=== PATIENT | female | born 1960 | race Caucasian/White ===

== ENCOUNTER 2016-04-26 14:31 | Emergency (ER) | payer MEDICAID ==
[2015-05-09 10:19] VITALS: BMI 38.4
[~2016-04-26 14:31] MED LIST: ACCUPRIL20 MG PO; CALCIUM 600+D T1 TA1 PO; CATAPRES TTS-20.2 MG TRANSDERM; COREG 3.1253.125 MG PO; DESERYL100 MG PO; FISH OIL 1,0001 CA1 PO; KLONOPIN1 MG PO; LAMICTAL200 MG PO; MAG-OXIDE400 MG PO; MULTI-DAY VITAM1 TAB PO; NORCO 7.5/325 T1 TA1 PO; NORVASC5 MG PO; TOPROL XL25 MG PO; ZOCOR40 MG PO; ZOLOFT100 MG PO
[2016-04-26 16:52] LABS: BASOPHILS 0.3 % (0.0-2.0); EOSINOPHILS 2.8 % (0-7); HEMATOCRIT 36.5 % (36.0-48.0); HEMOGLOBIN 11.9 g/dL (12-16); IMMATURE GRANULOCYTES 0.2 % (0-5); LYMPHOCYTES 37.3 % (15-50); MCH 30.4 pg (26.0-34.0); MCHC 32.6 g/dL (31.0-37.0); MCV 93.4 fL (80.0-100.0); MEAN PLATELET VOLUME 10.1 fL (7.4-10.4); NEUTROPHILS 51.4 % (40-80); RBC 3.91 10x6/uL (4.00-5.40); WBC 6.4 10x3/uL (4.8-10.8)
[2016-04-26 16:54] LABS: PLATELET COUNT 350 10x3/uL (130-400)
[2016-04-26 16:59] LABS: APPEARANCE CLOUDY (CLEAR); BILIRUBIN NEGATIVE (NEGATIVE); COLOR YELLOW (YELLOW); GLUCOSE NEGATIVE (NEGATIVE); KETONE NEGATIVE (NEGATIVE); LEUKOCYTE ESTERASE TRACE (NEGATIVE); NITRITE NEGATIVE (NEGATIVE); PROTEIN NEGATIVE (NEGATIVE); SPECIFIC GRAVITY 1.005 (1.005-1.020); UROBILINOGEN NORMAL (NORMAL)
[2016-04-26 17:00] LABS: AMORPHOUS SEDIMENT <1+ /lpf (NONE SEEN); BACTERIA FEW /hpf (NONE SEEN); EPITHELIAL CELLS 0-5 /hpf (0-5); RED CELLS - URINE 0-5 /hpf (0-5); WHITE CELLS - URINE 0-5 /hpf (0-5)
[2016-04-26 17:06] LABS: ALBUMIN 3.9 g/dL (3.4-5.0); ALKALINE PHOSPHATASE 84 U/L (46-116); ALT (SGPT) 20 U/L (10-68); BILIRUBIN - TOTAL 0.26 mg/dL (0.2-1.3); CALC OSMOLALITY 273 mosm/kg (275-300); CALCIUM 9.8 mg/dL (8.5-10.1); CARBON DIOXIDE 31.2 mmol/L (21.0-32.0); CHLORIDE - SERUM 99 mmol/L (98-107); GLUCOSE 104 mg/dL (74-106); POTASSIUM - SERUM 4.6 mmol/L (3.5-5.1); PROTEIN - SERUM 7.5 g/dL (6.4-8.2); SODIUM 137 mmol/L (136-145); UREA NITROGEN 13 mg/dL (7-18); eGFR NON AFRICAN AMERICAN 61 mL/min (90-120)
[2016-04-26 17:09] LABS: AMYLASE - SERUM 42 U/L (25-115); LIPASE 174 U/L (73-393); TROPONIN-I < 0.017 ng/mL (0.000-0.060)
== END 2016-04-26 18:06 | disposition home or self-care (01) ==
LOC: D.ER 14:31
PROVIDERS: Physician Assistant
DX: R10.11 Right upper quadrant pain (principal); R07.9 Chest pain, unspecified; I10 Essential (primary) hypertension

== ENCOUNTER 2016-05-15 22:36 | Emergency (ER) | payer MEDICAID ==
[2015-05-09 10:19] VITALS: BMI 38.4
== END 2016-05-16 01:45 | disposition home or self-care (01) ==
LOC: D.ER 22:36
DX: R10.11 Right upper quadrant pain (principal); Z87.19 Personal history of other diseases of the digestive system; I10 Essential (primary) hypertension

== ENCOUNTER → 2016-05-28 07:47 | Outpatient (CLI) | payer MEDICAID ==
[2015-05-09 10:19] VITALS: BMI 38.4
[~2016-05-28 07:47] MED LIST changes: +ATARAX 25 MG TA25 MG PO; +CARAFATE1 G/10 ML PO; +GEODON20 MG PO; +HYDROCHLOROTHIA25 MG PO; +HYDROCODON-ACE1 EAC7 PO; +LEXAPRO10 MG PO; +LOVASTATIN40 MG PO; +PROTONIX40 MG PO
== END | disposition home or self-care (01) ==
LOC: D.NM 07:47
DX: R10.11 Right upper quadrant pain (principal); R11.0 Nausea

== ENCOUNTER → 2016-06-04 07:24 | Outpatient (CLI) | payer MEDICAID ==
[2015-05-09 10:19] VITALS: BMI 38.4
== END | disposition home or self-care (01) ==
LOC: D.NM 07:24
DX: R11.0 Nausea (principal); R10.11 Right upper quadrant pain

== ENCOUNTER 2016-06-08 21:53 | Emergency (ER) | payer MEDICAID ==
[2015-05-09 10:19] VITALS: BMI 38.4
[~2016-06-08 21:53] MED LIST changes: -ATARAX 25 MG TA25 MG PO; -CARAFATE1 G/10 ML PO; -GEODON20 MG PO; -HYDROCHLOROTHIA25 MG PO; -HYDROCODON-ACE1 EAC7 PO; -LEXAPRO10 MG PO; -LOVASTATIN40 MG PO; -PROTONIX40 MG PO
[2016-06-08 22:58] LABS: BASOPHILS 0.6 % (0.0-2.0); EOSINOPHILS 3.7 % (0-7); HEMATOCRIT 37.5 % (36.0-48.0); HEMOGLOBIN 12.4 g/dL (12-16); IMMATURE GRANULOCYTES 0.1 % (0-5); LYMPHOCYTES 47.8 % (15-50); MCH 30.2 pg (26.0-34.0); MCHC 33.1 g/dL (31.0-37.0); MCV 91.2 fL (80.0-100.0); MEAN PLATELET VOLUME 9.9 fL (7.4-10.4); NEUTROPHILS 41.8 % (40-80); PLATELET COUNT 359 10x3/uL (130-400); RBC 4.11 10x6/uL (4.00-5.40); RDW 12.7 % (11.5-14.5); WBC 10.5 10x3/uL (4.8-10.8)
[2016-06-08 23:13] LABS: ALBUMIN 4.2 g/dL (3.4-5.0); BILIRUBIN - TOTAL 0.19 mg/dL (0.2-1.3); CALCIUM 9.5 mg/dL (8.5-10.1); CARBON DIOXIDE 24.7 mmol/L (21.0-32.0); POTASSIUM - SERUM 3.7 mmol/L (3.5-5.1); PROTEIN - SERUM 8.2 g/dL (6.4-8.2)
[2016-06-08 23:27] LABS: APPEARANCE HAZY (CLEAR); BILIRUBIN NEGATIVE (NEGATIVE); COLOR YELLOW (YELLOW); GLUCOSE NEGATIVE (NEGATIVE); KETONE NEGATIVE (NEGATIVE); LEUKOCYTE ESTERASE TRACE (NEGATIVE); NITRITE NEGATIVE (NEGATIVE); PROTEIN NEGATIVE (NEGATIVE); RED CELLS - URINE NONE SEEN /hpf (0-5); SPECIFIC GRAVITY 1.015 (1.005-1.020); UROBILINOGEN NORMAL (NORMAL); WHITE CELLS - URINE 0-5 /hpf (0-5)
[2016-06-08 23:28] LABS: BACTERIA NONE SEEN /hpf (NONE SEEN); EPITHELIAL CELLS 0-5 /hpf (0-5)
== END 2016-06-09 01:48 | disposition home or self-care (01) ==
LOC: D.ER 21:53
PROVIDERS: Nurse Practitioner Acute Care; Surgery
DX: R10.9 Unspecified abdominal pain (principal); I10 Essential (primary) hypertension

== ENCOUNTER 2016-06-26 17:51 | Inpatient (IN) | payer MEDICAID ==
[~2016-06-26] VITALS: Ht 162.6 cm; Wt 100.5 kg
[2016-06-26 19:35] LABS: ALBUMIN 2.7 g/dL (3.4-5.0); BILIRUBIN - TOTAL 0.14 mg/dL (0.2-1.3); POTASSIUM - SERUM 4.2 mmol/L (3.5-5.1); UREA NITROGEN 40 mg/dL (7-18)
[2016-06-26 19:38] LABS: ALKALINE PHOSPHATASE 41 U/L (46-116); ALT (SGPT) 20 U/L (10-68); AMYLASE - SERUM 51 U/L (25-115); CALC OSMOLALITY 292 mosm/kg (275-300); CALCIUM 8.3 mg/dL (8.5-10.1); CARBON DIOXIDE 25.8 mmol/L (21.0-32.0); CHLORIDE - SERUM 107 mmol/L (98-107); CREATININE - SERUM 0.8 mg/dL (0.6-1.3); GLUCOSE 131 mg/dL (74-106); LIPASE 196 U/L (73-393); PROTEIN - SERUM 5.3 g/dL (6.4-8.2); SODIUM 141 mmol/L (136-145); eGFR NON AFRICAN AMERICAN 79 mL/min (90-120)
[2016-06-26 19:45] LABS: BASOPHILS 0.3 % (0.0-2.0); EOSINOPHILS 2.2 % (0-7); IMMATURE GRANULOCYTES 0.4 % (0-5); MCH 30.5 pg (26.0-34.0); MCHC 33.1 g/dL (31.0-37.0); MCV 92.1 fL (80.0-100.0); MEAN PLATELET VOLUME 9.7 fL (7.4-10.4); MONOCYTES 4.8 % (2-11); NEUTROPHILS 61.3 % (40-80); RDW 13.6 % (11.5-14.5); WBC 10.7 10x3/uL (4.8-10.8)
[2016-06-26 20:02] LABS: HEMATOCRIT 15.1 % (36.0-48.0); PLATELET COUNT 249 10x3/uL (130-400); RBC 1.64 10x6/uL (4.00-5.40)
[2016-06-26 20:39] LABS: APTT 24.5 SECONDS (22.8-39.4); INR 1.04 (0.85-1.17); PROTIME 13.5 SECONDS (11.6-15.0)
[2016-06-26 20:44] LABS: APPEARANCE CLEAR (CLEAR); COLOR YELLOW (YELLOW)
[2016-06-26 20:45] LABS: BILIRUBIN NEGATIVE (NEGATIVE); GLUCOSE NEGATIVE (NEGATIVE); KETONE NEGATIVE (NEGATIVE); LEUKOCYTE ESTERASE TRACE (NEGATIVE); NITRITE NEGATIVE (NEGATIVE); PROTEIN NEGATIVE (NEGATIVE); RED CELLS - URINE OCC /hpf (0-5); UROBILINOGEN NORMAL (NORMAL); WHITE CELLS - URINE 0-5 /hpf (0-5)
[2016-06-26 20:46] LABS: BACTERIA FEW /hpf (NONE SEEN)
[2016-06-26 21:00] VITALS: BP 101/73
--- NOTE | 2016-06-26 21:00 | NUR ---
PT ARRIVED TO ICU. AAO. BP 116/96. HR 125. O2 94% ON ROOM AIR. RR 16. TEMP 98.6. ANSWERS APPROPRIATELY.
[2016-06-26 21:17] VITALS: BP 116/96; BMI 38.5
--- NOTE | 2016-06-26 21:30 | NUR ---
1ST UNIT OF PRBC STARTED. VSS.
[2016-06-26] MEDS ORDERED: HYDROCODON-ACE1 EAC7 PO (21:36)
[2016-06-26] MEDS ORDERED: HYDROCHLOROTHIA25 MG PO (21:41)
[2016-06-26] MEDS ORDERED: LOVASTATIN40 MG PO (21:42)
[2016-06-26] MEDS ORDERED: LEXAPRO10 MG PO (21:42)
[2016-06-26] MEDS ORDERED: GEODON20 MG PO (21:42)
[2016-06-26] MEDS ORDERED: ATARAX 25 MG TA25 MG PO (21:44)
--- NOTE | 2016-06-26 21:55 | NUR ---
PT HEADED TO CT.
[2016-06-26 22:00] VITALS: BP 111/83
--- NOTE | 2016-06-26 22:05 | NUR ---
PT ARRIVED BACK FROM CT. VSS
--- NOTE | 2016-06-26 22:15 | NUR ---
22 GAUGE PIV STARTED TO RIGHT AC.
[2016-06-26 23:00] VITALS: BP 117/94
--- NOTE | 2016-06-26 23:30 | NUR ---
REASSESSMENT COMPLETE. NO CHANGES FROM PREVIOUS ASSESSMENT. WILL CONTINUE TO MONITOR.
--- NOTE | 2016-06-26 23:49 | NUR ---
PRBC CONTINUES TO INFUSE. VSS. NO SIGNS OF REACTION. WILL CONTINUE TO MONITOR.
[2016-06-27] VITALS (24 sets, daily range): BP systolic 120–196; BP diastolic 63–106; Ht 162.6 cm; Wt 100.5 kg
--- NOTE | 2016-06-27 00:45 | NUR ---
1ST PRBC COMPLETE. 2ND PRBC STARTED. VSS. WILL CONTINUE TO MONITOR.
--- NOTE | 2016-06-27 01:40 | NUR ---
2ND PRBC CONTINUES INFUSING. VSS. NO SIGNS OF REACTION NOTED. PT C/O INSOMNIA. WILL CONTINUE TO MONITOR.
--- NOTE | 2016-06-27 03:30 | NUR ---
REASSESSMENT COMPLETE. NO CHANGES FROM PREVIOUS ASSESSMENT OTHER THAN INCREASE IN RR; TACHYPNEA.
--- NOTE | 2016-06-27 06:05 | NUR ---
SPOKE WITH DR. SALINAS. UPDATE ON PT GIVEN.
[2016-06-27 07:21] LABS: BASOPHILS 0.3 % (0.0-2.0); EOSINOPHILS 1.1 % (0-7); HEMATOCRIT 20.3 % (36.0-48.0); IMMATURE GRANULOCYTES 0.3 % (0-5); LYMPHOCYTES 31.7 % (15-50); MCH 30.3 pg (26.0-34.0); MEAN PLATELET VOLUME 9.8 fL (7.4-10.4); MONOCYTES 6.2 % (2-11); NEUTROPHILS 60.4 % (40-80); RDW 13.6 % (11.5-14.5); WBC 10.6 10x3/uL (4.8-10.8)
[2016-06-27 07:26] LABS: RBC 2.28 10x6/uL (4.00-5.40)
[2016-06-27 07:28] LABS: HEMOGLOBIN 6.9 g/dL (12-16); PLATELET COUNT 142 10x3/uL (130-400)
[2016-06-27 07:53] LABS: ALBUMIN 2.3 g/dL (3.4-5.0); ALKALINE PHOSPHATASE 31 U/L (46-116); ALT (SGPT) 15 U/L (10-68); AMYLASE - SERUM 41 U/L (25-115); BILIRUBIN - TOTAL 0.88 mg/dL (0.2-1.3); CALC OSMOLALITY 294 mosm/kg (275-300); CARBON DIOXIDE 24.1 mmol/L (21.0-32.0); CHLORIDE - SERUM 111 mmol/L (98-107); CKMB 0.3 U/L (0.0-3.6); CREATININE - SERUM 0.9 mg/dL (0.6-1.3); FERRITIN 35 ng/mL (3-244); GLUCOSE 124 mg/dL (74-106); LIPASE 185 U/L (73-393); MAGNESIUM - SERUM 1.5 mg/dL (1.8-2.4); POTASSIUM - SERUM 4.1 mmol/L (3.5-5.1); PRO BNP 73 pg/mL (0-125); PROTEIN - SERUM 4.4 g/dL (6.4-8.2); SODIUM 142 mmol/L (136-145); THYROID STIMULATING HORMONE 2.14 uIU/mL (0.36-3.74); TROPONIN-I < 0.017 ng/mL (0.000-0.060); UREA NITROGEN 43 mg/dL (7-18); eGFR NON AFRICAN AMERICAN 69 mL/min (90-120)
[2016-06-27 07:57] LABS: % SATURATION 96 % (15-55); IRON 262 ug/dl (35-150); TOTAL IRON BIND CAPACITY 272 ug/dl (260-445)
[2016-06-27 07:58] LABS: UNSAT IRON BIND CAPACITY 10 ug/dl (150-375)
--- NOTE | 2016-06-27 08:50 | NUR ---
Is the patient Alert and Oriented? Yes 0 * How many steps to enter\exit or inside your home? 5-6 0 * PCP DR WU IN [place] 0 * Pharmacy [facility] 0 * Preadmission Environment Home with Family 0 * ADLs Independent 0 * Equipment None 0 * List name and contact numbers for known caregivers / representatives who currently or will assist patient after discharge: S/O ALEJANDRO SQUIRES [phone] * Community resources currently utilized None 0 * Additional services required to return to the preadmission environment? No 0 * Can the patient safely return to the preadmission environment? Yes 0 * Has this patient been hospitalized within the prior 30 days at any hospital? No PATIENT STATES SHE LIVES AT HOME WITH HER S/O ALEJANDRO SQUIRES. SHE WAS INDEPENDENT WITH ALL ADL'S PRIOR TO YESTERDAY. PATIENT STATES ALEJANDRO WILL BE AVAILABLE TO DRIVE HER HOME AT DISCHARGE. PATIENT'S PCP IS DR. WU IN [place]. SHE GETS HER MEDS FROM [facility]. SHE DENIES USE OF ANY EQUIPMENT AND DENIES EVER HAVING HOME HEALTH IN THE PAST. PATIENT STATES THERE ARE 5-6 STEPS TO ENTER HER HOME. NO DISCHARGE NEEDS IDENTIFIED AT THIS TIME.
[2016-06-27 11:13] LABS: APPEARANCE CLEAR (CLEAR); BILIRUBIN NEGATIVE (NEGATIVE); COLOR YELLOW (YELLOW); GLUCOSE NEGATIVE (NEGATIVE); KETONE NEGATIVE (NEGATIVE); LEUKOCYTE ESTERASE NEGATIVE (NEGATIVE); NITRITE NEGATIVE (NEGATIVE); PROTEIN NEGATIVE (NEGATIVE); SPECIFIC GRAVITY 1.015 (1.005-1.020); UROBILINOGEN NORMAL (NORMAL)
[2016-06-27 11:14] LABS: BACTERIA FEW /hpf (NONE SEEN); EPITHELIAL CELLS 0-5 /hpf (0-5); RED CELLS - URINE 0-5 /hpf (0-5); WHITE CELLS - URINE 0-5 /hpf (0-5)
--- NOTE | 2016-06-27 18:54 | NUR ---
0700 PT HAD TARRY BM AND WAS CLEANED WITH FULL LINEN CHANGE COMPLETE. PT COMPLAINING OF DISCOMFORT AND UNABLE TO LOCALIZE WHERE.
--- NOTE | 2016-06-27 18:56 | NUR ---
0900 BLOOD INFUSING AND PT BP INCREASING. DR JONES NOTIFIED AND HE STATED THAT WE WILL WAIT TO MONITOR AND IF NO IMPROVEMENTS WE WILL GIVE LASIX BETWEEN BLOOD.
--- NOTE | 2016-06-27 18:57 | NUR ---
1100 DR SALINAS AND ANESTHESIA HERE TO PERFORM EGD. CONSENT SIGNED AND IN CHART. PT TOLERATED PROCEDURE WELL. BLOOD INFUSING. WILL CONTINUE TO MONITOR
--- NOTE | 2016-06-27 18:59 | NUR ---
1300 PT COMPLAINS OF SEVERE THIRST. CALLED DR JONES AND CLEAR LIQUID DIET ORDERED. PT GIVEN WATER AND STATES SHE FEELS BETTER. PT FREQUENTLY PASSING GAS AT THIS TIME. BP INCREASING AT THIS TIME. LASIX ORDERED AND GIVEN BETWEEN BLOOD.
--- NOTE | 2016-06-27 19:01 | NUR ---
1500 HYDRALIZINE ORDERED FOR INCREASED BP. BP REMAINS ELEVATED BUT IMPROVED WITH MEDS
--- NOTE | 2016-06-27 19:02 | NUR ---
1700 JOHNSON INSERTED PER ORDER. URINE CLEAR YELLOW AND DRAINING TO GRAVITY, SECURED TO LEG. PT STATES THAT SHE IS FEELING BETTER. WILL MONITOR BP CLOSELY
[2016-06-27 19:07] LABS: HEMATOCRIT 29.2 % (36.0-48.0); HEMOGLOBIN 10.3 g/dL (12-16)
--- NOTE | 2016-06-27 19:30 | NUR ---
ASSESSMENT COMPLETE. S1S2. RR CLEAR TO ASCULTATION; SHALLOW. PERRLA. AAO. BLOODY STOOLS. SEE FLOW SHEET FOR DETAILS.
--- NOTE | 2016-06-27 21:20 | NUR ---
FAMILY AT BEDSIDE. UPDATE GIVEN.
--- NOTE | 2016-06-27 23:30 | NUR ---
REASSESSMENT COMPLETE. NO CHANGES FROM PREVIOUS ASSESSMENT. CALL LIGHT IN REACH. VSS. SEE FLOW SHEET FOR DETAILS.
--- NOTE | 2016-06-27 23:40 | NUR ---
PT HAVING MULTIPLE BLOODY STOOLS REQUIRING FREQUENT LINEN CHANGES AND CLEANING.
[2016-06-28] VITALS (24 sets, daily range): BP systolic 103–157; BP diastolic 57–97
[2016-06-28 00:53] LABS: HEMATOCRIT 27.5 % (36.0-48.0); HEMOGLOBIN 9.7 g/dL (12-16)
--- NOTE | 2016-06-28 01:10 | NUR ---
COMPLETE LINEN CHANGE.
--- NOTE | 2016-06-28 02:40 | NUR ---
REASSESSMENT COMPLETE. NO CHANGES FROM PREVIOUS ASSESSMENT; OTHER THAN PT C/O MILD HEADACHE 2/10 ON PAIN SCALE. WILL CONTINUE TO MONITOR.
[2016-06-28 04:14] LABS: BASOPHILS 0.2 % (0.0-2.0); EOSINOPHILS 1.4 % (0-7); HEMATOCRIT 28.3 % (36.0-48.0); HEMOGLOBIN 9.9 g/dL (12-16); IMMATURE GRANULOCYTES 0.4 % (0-5); LYMPHOCYTES 22.5 % (15-50); MCH 29.8 pg (26.0-34.0); MEAN PLATELET VOLUME 9.5 fL (7.4-10.4); MONOCYTES 8.2 % (2-11); NEUTROPHILS 67.3 % (40-80); PLATELET COUNT 152 10x3/uL (130-400); RDW 15.7 % (11.5-14.5); WBC 11.1 10x3/uL (4.8-10.8)
[2016-06-28 04:20] LABS: MCV 85.2 fL (80.0-100.0); RBC 3.32 10x6/uL (4.00-5.40)
[2016-06-28 04:36] LABS: CALCIUM 8.2 mg/dL (8.5-10.1); CARBON DIOXIDE 24.8 mmol/L (21.0-32.0); CHLORIDE - SERUM 107 mmol/L (98-107); CREATININE - SERUM 0.8 mg/dL (0.6-1.3); GLUCOSE 116 mg/dL (74-106); SODIUM 142 mmol/L (136-145); eGFR NON AFRICAN AMERICAN 79 mL/min (90-120)
[2016-06-28 04:38] LABS: CALC OSMOLALITY 285 mosm/kg (275-300); MAGNESIUM - SERUM 1.9 mg/dL (1.8-2.4); PHOSPHOROUS 4.9 mg/dL (2.5-4.9); POTASSIUM - SERUM 3.2 mmol/L (3.5-5.1); UREA NITROGEN 19 mg/dL (7-18)
--- NOTE | 2016-06-28 05:13 | NUR ---
COMPLETE BED BATH; COMPLETE LINEN CHANGE. VSS. CALL LIGHT IN REACH. WILL CONTINUE TO MONITOR.
--- NOTE | 2016-06-28 05:50 | NUR ---
COMPLETE LINEN CHANGE.
--- NOTE | 2016-06-28 09:50 | NUR ---
PT INC OF BOWEL, LINENS CHANGED X 2 THIS AM. NO BLOODY STOOLS NOTED.
--- NOTE | 2016-06-28 13:00 | NUR ---
1245- COLONOSCOPY DONE HERE I ICU, PT BRANDAN WELL, VSS, AFEBRILE. PT AWAKENING AND FOLLOWS COMMAND. VOICE SPOKE TO FAMILY.
[2016-06-28 13:40] LABS: HEMATOCRIT 26.5 % (36.0-48.0)
[2016-06-28 18:44] LABS: HEMOGLOBIN 8.3 g/dL (12-16)
--- NOTE | 2016-06-28 19:30 | NUR ---
ASSESSMENT COMPLETE. AAO. S1S2. RR CLEAR PER ASCULTATION THROUGHOUT ALL LOBES. R/L FOREARM PIV; BOTH PATENT. JOHNSON AND SCD'S IN PLACE. PT MAKES CHANGES IN POSITION INDEPENDENTLY. CALL LIGHT IN REACH. VSS. WILL CONTINUET TO MONITOR.
--- NOTE | 2016-06-28 21:15 | NUR ---
LEFT FOREARM PIV INFLITRATED.
--- NOTE | 2016-06-28 21:30 | NUR ---
UNIT OF PRBC STARTED. PER ORDERS.
--- NOTE | 2016-06-28 23:00 | NUR ---
REASSESSMENT COMPLETE. NO CHANGES FROM PREVIOUS ASSESSMENT. VSS. BLOOD CONTINUES TO INFUSE; NO SIGNS OF REACTION. AFEBRILE. WILL CONTINUE TO MONITOR.
[2016-06-29] VITALS (24 sets, daily range): BP systolic 91–143; BP diastolic 56–116
--- NOTE | 2016-06-29 01:20 | NUR ---
PT RESTING; EYES CLOSED. VSS. NO DISTRESS NOTED. CALL LIGHT IN REACH. WILL CONTINUE TO MONITOR.
--- NOTE | 2016-06-29 03:15 | NUR ---
REASSESSMENT COMPLETE. NO CHANGES FROM PREVIOUS ASSESSMENT. WILL CONTINUE TO MONITOR.
[2016-06-29 04:51] LABS: BASOPHILS 0.1 % (0.0-2.0); HEMATOCRIT 27.1 % (36.0-48.0); HEMOGLOBIN 9.2 g/dL (12-16); IMMATURE GRANULOCYTES 0.3 % (0-5); LYMPHOCYTES 33.8 % (15-50); MCHC 33.9 g/dL (31.0-37.0); MEAN PLATELET VOLUME 9.8 fL (7.4-10.4); MONOCYTES 6.1 % (2-11); NEUTROPHILS 55.7 % (40-80); RBC 3.07 10x6/uL (4.00-5.40); RDW 16.2 % (11.5-14.5)
[2016-06-29 04:53] LABS: MCV 88.3 fL (80.0-100.0); PLATELET COUNT 185 10x3/uL (130-400); WBC 7.3 10x3/uL (4.8-10.8)
[2016-06-29 05:07] LABS: CALC OSMOLALITY 286 mosm/kg (275-300); CALCIUM 8.3 mg/dL (8.5-10.1); CHLORIDE - SERUM 111 mmol/L (98-107); CREATININE - SERUM 0.7 mg/dL (0.6-1.3); GLUCOSE 99 mg/dL (74-106); MAGNESIUM - SERUM 1.8 mg/dL (1.8-2.4); PHOSPHOROUS 3.9 mg/dL (2.5-4.9); POTASSIUM - SERUM 3.3 mmol/L (3.5-5.1); SODIUM 145 mmol/L (136-145); eGFR NON AFRICAN AMERICAN > 90 mL/min (90-120)
[2016-06-29 05:09] LABS: UREA NITROGEN 7 mg/dL (7-18)
--- NOTE | 2016-06-29 07:31 | NUR ---
DR GROSS HERE, LABS REVIEWED AND REPORT GIVEN. DR GROSS ORDERS TO NOT GIVE PRBC'S BASED ON PARAMETERS THIS AM AND TO CONTINUE Q6H H&H AND CALL RESULTS AT NOON.
--- NOTE | 2016-06-29 09:38 | NUR ---
Nutrition follow-up: Diet advanced to clear liquids; pt tolerating at this time Labs reviewed Wt: 232# Will need nutrition support to start if diet unable to advance past clear liquids within [address] RDN following.
[2016-06-29 12:47] LABS: HEMATOCRIT 29.1 % (36.0-48.0); HEMOGLOBIN 9.6 g/dL (12-16)
--- NOTE | 2016-06-29 14:30 | NUR ---
LABS CALLED TO DR GROSS OFFICE, CALLED TO DR JONES WELL.
[2016-06-29 18:26] LABS: HEMOGLOBIN 8.3 g/dL (12-16)
--- NOTE | 2016-06-29 19:09 | NUR ---
LABS REVIEWED AND CALLED TO DR ZAZUETA. REC'D ORDERS.
[2016-06-29 19:30] LABS: BILIRUBIN - DIRECT 0.15 mg/dL (0.00-0.30); BILIRUBIN - TOTAL 0.34 mg/dL (0.2-1.3)
--- NOTE | 2016-06-29 23:15 | NUR ---
1914- REPORT RECVD. CARE ASSUMED. INITIAL ASSMNT COMPLETED. SEE FLOWSHEET FOR ALL FINDINGS. AWAKE AND AOX4. RESP EVEN AND UNLABORED. LUNGS CTA, SPO2 97% ON RA. DENIES DISCOMFORT. AFEBRILE. SR ON THE MONITOR. ABD SOFT, BSA X4. F/C PATENT WITH MAMI UOP. SCDS ON. HOB UP. C/L IN REACH. CONT CURRENT POC. 2014- DR ZAZUETA AT BEDSIDE TO DISCUSS EGD IN AM. ORDER TO OBTAIN CONSENT. 2100- HS MEDS GIVEN. PRBC INITIATED PER ORDERS. VSS. NO ADV REACTION SEEN. RESTING WITH NO DISTRESS. CONT POC. 2314- REASSESSMENT COMPLETED. SEE FLOWSHEET FOR ALL FINDINGS. NO SIG CHANGES SEEN. AFEBRILE. VSS. PRBC CONT TO INFUSE WITHOUT ISSUE. SR ON THE MONIOTR. DENIES DISCOMFORT. HS SNACK PROVIDED. UDERSTANDS NPO AFTER MN. HOB UP. C/L IN REACH. CONT CURRENT POC.
[2016-06-30] VITALS (23 sets, daily range): BP systolic 93–147; BP diastolic 50–109
--- NOTE | 2016-06-30 | NUR ---
PRBC INFUSED. NO ADV REACTION SEEN. VSS.
[2016-06-30 00:32] LABS: HEMATOCRIT 32.8 % (36.0-48.0); HEMOGLOBIN 10.7 g/dL (12-16)
--- NOTE | 2016-06-30 01:08 | NUR ---
CURRENT H AND H WITHIN PARAMETERS. VSS. DENIES NEEDS. RESTING WITH NO DISTRESS. HOB UP. C/L IN REACH. CONT CURRENT POC.
--- NOTE | 2016-06-30 03:15 | NUR ---
REASSESSMENT COMPLETED. SEE FLOWSHEET FOR ALL FINDINGS. NO SIG CHANGES SEEN. AFEBRILE. VSS. AFEBRILE. SR ON THE MONIOTR. DENIES DISCOMFORT. NPO. RESTING WITH NO DISTRESS. HOB UP. C/L IN REACH. CONT CURRENT POC.
--- NOTE | 2016-06-30 05:27 | NUR ---
RESTING WITH NO DISTRESS. VSS. NO NEEDS VOICED. HOB UP. C/L IN REACH. CONT CURRENT POC.
[2016-06-30 05:48] LABS: BASOPHILS 0.3 % (0.0-2.0); EOSINOPHILS 6.9 % (0-7); HEMATOCRIT 29.2 % (36.0-48.0); HEMOGLOBIN 9.6 g/dL (12-16); IMMATURE GRANULOCYTES 0.3 % (0-5); LYMPHOCYTES 34.4 % (15-50); MCH 29.2 pg (26.0-34.0); MCHC 32.9 g/dL (31.0-37.0); MCV 88.8 fL (80.0-100.0); MEAN PLATELET VOLUME 9.2 fL (7.4-10.4); MONOCYTES 7.2 % (2-11); NEUTROPHILS 50.9 % (40-80); PLATELET COUNT 218 10x3/uL (130-400); RBC 3.29 10x6/uL (4.00-5.40); WBC 7.1 10x3/uL (4.8-10.8)
[2016-06-30 06:06] LABS: ALBUMIN 2.4 g/dL (3.4-5.0); ALKALINE PHOSPHATASE 42 U/L (46-116); ALT (SGPT) 18 U/L (10-68); BILIRUBIN - TOTAL 0.41 mg/dL (0.2-1.3); CALC OSMOLALITY 288 mosm/kg (275-300); CALCIUM 8.6 mg/dL (8.5-10.1); CARBON DIOXIDE 27.2 mmol/L (21.0-32.0); CHLORIDE - SERUM 112 mmol/L (98-107); CREATININE - SERUM 0.8 mg/dL (0.6-1.3); GLUCOSE 90 mg/dL (74-106); POTASSIUM - SERUM 3.6 mmol/L (3.5-5.1); PROTEIN - SERUM 4.8 g/dL (6.4-8.2); SODIUM 146 mmol/L (136-145); UREA NITROGEN 7 mg/dL (7-18); eGFR NON AFRICAN AMERICAN 79 mL/min (90-120)
--- NOTE | 2016-06-30 11:00 | NUR ---
NO CHANGE NOTED TO PRIMARY ASSESSMENT
--- NOTE | 2016-06-30 11:10 | NUR ---
GI TEAM IN ROOM AND SETTING UP.
--- NOTE | 2016-06-30 12:02 | NUR ---
1145 6CC OF [facility]SH[facility] INK TATOOD ULCER SITE.
[2016-06-30 12:51] LABS: HEMATOCRIT 28.8 % (36.0-48.0); HEMOGLOBIN 9.5 g/dL (12-16)
[2016-06-30 20:06] LABS: HEMATOCRIT 28.3 % (36.0-48.0); HEMOGLOBIN 9.3 g/dL (12-16)
--- NOTE | 2016-06-30 23:15 | NUR ---
1914- REPORT RECVD. CARE ASSUMED. INITIAL ASSMNT COMPLETED. SEE FLOWSHEET FOR ALL FINDINGS. AWAKE AND AOX4. RESP EVEN AND UNLABORED. LUNGS CTA, SPO2 97% ON RA. DENIES DISCOMFORT. AFEBRILE. SR ON THE MONITOR. ABD SOFT, BSA X4. F/C PATENT WITH MAMI UOP. SCDS ON. HOB UP. C/L IN REACH. CONT CURRENT POC. 2100- HS MEDS GIVEN. AT BEDSIDE. UPDATE GIVEN. RESTING WITH NO DISTRESS. CONT POC. 231- REASSESSMENT COMPLETED. SEE FLOWSHEET FOR ALL FINDINGS. NO SIG CHANGES SEEN. AFEBRILE. VSS. SR ON THE MONIOTR. DENIES DISCOMFORT. HS SNACK PROVIDED. HOB UP. C/L IN REACH. CONT CURRENT POC.
[2016-07-01] VITALS (23 sets, daily range): BP systolic 90–155; BP diastolic 53–98
[2016-07-01 00:38] LABS: HEMATOCRIT 29.4 % (36.0-48.0); HEMOGLOBIN 9.5 g/dL (12-16)
--- NOTE | 2016-07-01 01:15 | NUR ---
RESTING SIDE LYING WITH NO DISTRESS. VSS. NO NEEDS VOICED. HOB UP. C/L IN REACH. CONT CURRENT POC.
--- NOTE | 2016-07-01 03:15 | NUR ---
REASSESSMENT COMPLETED. SEE FLOWSHEET FOR ALL FINDINGS. NO SIG CHANGES SEEN. AFEBRILE. VSS. SR ON THE MONIOTR. DENIES DISCOMFORT. RESTFUL. SCDS ON. HOB UP. C/L IN REACH. CONT CURRENT POC.
--- NOTE | 2016-07-01 05:15 | NUR ---
RESTING WITH EYES CLOSED. VSS. HOB UP. C/L IN REACH. CONT CURRENT POC.
[2016-07-01 07:04] LABS: BASOPHILS 0.1 % (0.0-2.0); EOSINOPHILS 6.5 % (0-7); HEMATOCRIT 29.1 % (36.0-48.0); HEMOGLOBIN 9.5 g/dL (12-16); IMMATURE GRANULOCYTES 0.1 % (0-5); LYMPHOCYTES 32.2 % (15-50); MCH 29.6 pg (26.0-34.0); MCHC 32.6 g/dL (31.0-37.0); MCV 90.7 fL (80.0-100.0); MEAN PLATELET VOLUME 9.5 fL (7.4-10.4); MONOCYTES 7.7 % (2-11); NEUTROPHILS 53.4 % (40-80); PLATELET COUNT 249 10x3/uL (130-400); RBC 3.21 10x6/uL (4.00-5.40); WBC 6.9 10x3/uL (4.8-10.8)
[2016-07-01 07:39] LABS: ALBUMIN 2.4 g/dL (3.4-5.0); ALKALINE PHOSPHATASE 47 U/L (46-116); ALT (SGPT) 18 U/L (10-68); BILIRUBIN - TOTAL 0.38 mg/dL (0.2-1.3); CALC OSMOLALITY 288 mosm/kg (275-300); CALCIUM 8.4 mg/dL (8.5-10.1); CARBON DIOXIDE 27.3 mmol/L (21.0-32.0); CHLORIDE - SERUM 113 mmol/L (98-107); CREATININE - SERUM 0.8 mg/dL (0.6-1.3); GLUCOSE 92 mg/dL (74-106); POTASSIUM - SERUM 3.6 mmol/L (3.5-5.1); PROTEIN - SERUM 4.5 g/dL (6.4-8.2); SODIUM 147 mmol/L (136-145); eGFR NON AFRICAN AMERICAN 79 mL/min (90-120)
[2016-07-01 07:41] LABS: UREA NITROGEN 5 mg/dL (7-18)
[2016-07-01 12:53] LABS: HEMATOCRIT 29.9 % (36.0-48.0); HEMOGLOBIN 9.6 g/dL (12-16)
--- NOTE | 2016-07-01 14:06 | NUR ---
NO CHANGES NOTED
--- NOTE | 2016-07-01 15:00 | NUR ---
NO CHANGES NOTED
[2016-07-01 19:01] LABS: HEMATOCRIT 29.1 % (36.0-48.0); HEMOGLOBIN 9.5 g/dL (12-16)
--- NOTE | 2016-07-01 23:15 | NUR ---
1914- REPORT RECVD. CARE ASSUMED. INITIAL ASSMNT COMPLETED. SEE FLOWSHEET FO ALL FINDINGS. AWAKE AND AOX4. RESP EVEN AND UNLABORED. LUNGS CTA, SPO2 97% ON RA. DENIES DISCOMFORT. AFEBRILE. SR ON THE MONITOR. ABD SOFT, BSA X4. F/C PATENT WITH MAMI UOP. SCDS ON. HOB UP. C/L IN REACH. CONT CURRENT POC. 2100- HS MEDS GIVEN. AT BEDSIDE. UPDATE GIVEN. UP AD SCOTTIE TO BSC. SMALL LOOSE STOOL. INDEPENDENT WITH RAZIA CARE. PARTIAL LINEN CHANGE. HS SNACK AND PO FLUIDS PROVIDED. TEACHING COMPLETED. CONT CURRENT POC. 2315- REASSESSMENT COMPLETED. SEE FLOWSHEET FOR ALL FINDINGS. NO SIG CHANGES SEEN. RESP EVEN AND UNLABORED. LUNGS CTA. SPO2 97% ON RA. AFEBRILE. VSS. SR ON THE MONIOTR. PULSES PALP. F/C PATENT. DENIES DISCOMFORT. HOB UP. C/L IN REACH. CONT CURRENT POC.
[2016-07-02] VITALS (11 sets, daily range): BP systolic 120–179; BP diastolic 70–97
[2016-07-02 01:05] LABS: HEMATOCRIT 27.9 % (36.0-48.0); HEMOGLOBIN 9.4 g/dL (12-16)
--- NOTE | 2016-07-02 01:15 | NUR ---
RESTING WITH EYES CLOSED. VSS. SR ON THE MONITOR. NO NEEDS VOICED. HOB UP. C/L IN REACH. CONT CURRENT POC.
--- NOTE | 2016-07-02 03:15 | NUR ---
REASSESSMENT COMPLETED. SEE FLOWSHEET FOR ALL FINDINGS. NO SIG CHANGE SEEN. RESP EVEN AND UNLABORED. LUNGS CTA. SPO2 97% ON RA. AFEBRILE. VSS. SR ON THE MONIOTR. PULSES PALP. F/C PATENT. DENIES DISCOMFORT. HOB UP. C/L IN REACH. CONT CURRENT POC.
--- NOTE | 2016-07-02 05:02 | NUR ---
RESTING WITH EYES CLOSED. VSS. NO NEEDS VOICED. TRANSFER ORDERS RECVD. AWAITING BED ON FLOOR. PT INFORMED. C/L IN REACH. CONT CURRENT POC.
[2016-07-02 06:15] LABS: BASOPHILS 0.2 % (0.0-2.0); EOSINOPHILS 8.3 % (0-7); HEMATOCRIT 29.2 % (36.0-48.0); HEMOGLOBIN 9.4 g/dL (12-16); IMMATURE GRANULOCYTES 0.2 % (0-5); LYMPHOCYTES 33.4 % (15-50); MCH 29.2 pg (26.0-34.0); MCHC 32.2 g/dL (31.0-37.0); MCV 90.7 fL (80.0-100.0); MEAN PLATELET VOLUME 9.6 fL (7.4-10.4); MONOCYTES 9.1 % (2-11); NEUTROPHILS 48.8 % (40-80); PLATELET COUNT 271 10x3/uL (130-400); RBC 3.22 10x6/uL (4.00-5.40); RDW 18.3 % (11.5-14.5)
[2016-07-02 06:42] LABS: ALBUMIN 2.2 g/dL (3.4-5.0); ANION GAP 8.8 mmol/L (8-16); BILIRUBIN - TOTAL 0.28 mg/dL (0.2-1.3); CARBON DIOXIDE 28.5 mmol/L (21.0-32.0); CREATININE - SERUM 0.9 mg/dL (0.6-1.3); POTASSIUM - SERUM 3.3 mmol/L (3.5-5.1); PROTEIN - SERUM 4.8 g/dL (6.4-8.2)
--- NOTE | 2016-07-02 09:48 | NUR ---
REPORT CALLED TO FLOOR NURSE.
--- NOTE | 2016-07-02 10:33 | NUR ---
TRANSFER FROM ICU BY W/C. OREINTED TO ROOM. CALL LIGHT IN REACH. WILL CONT. PLAN OF CARE.
--- NOTE | 2016-07-02 10:38 | NUR ---
IV access-22 gauge inserted in left forearm for IV access. Tiera Landa RN
--- NOTE | 2016-07-02 10:53 | NUR ---
IV RESTARTED TO LEFT WRIST BY ANDREINA GUSTAFSON WIT 22 GAUGE CATH. LINE IS PATENT.
[2016-07-02 13:32] LABS: HEMATOCRIT 33.2 % (36.0-48.0); HEMOGLOBIN 10.5 g/dL (12-16)
--- NOTE | 2016-07-02 14:00 | NUR ---
JOHNSON CATH DCD WITH 1100CC OP AND 10CC BULB. WILL MONITOR OP.
--- NOTE | 2016-07-02 14:27 | NUR ---
Nutrition follow-up: Diet advanced to full liquids then soft diet Pt currently tolerating labs reviewed Wt: 233# RDN following.
--- NOTE | 2016-07-02 15:28 | NUR ---
IV SL. UP AMBULATING HALLWAY WITH .
[2016-07-02 19:08] LABS: HEMATOCRIT 30.4 % (36.0-48.0); HEMOGLOBIN 9.8 g/dL (12-16)
--- NOTE | 2016-07-02 20:50 | NUR ---
PT UP TO SHOWER, NOTIFIED MT THAT PT WILL BE OFF THE MONITOR FOR A LITTLE BIT.
--- NOTE | 2016-07-03 00:26 | NUR ---
SHOE ASSOCIATE AT BEDSIDE FOR VS, NEEDS ADDRESSED. CALL LIGHT IN REACH. WILL CONT TO MONITOR.
[2016-07-03 01:38] LABS: HEMOGLOBIN 9.6 g/dL (12-16)
[2016-07-03 02:00] VITALS: BP 135/83
--- NOTE | 2016-07-03 03:44 | NUR ---
RESTING WITH EYES CLOSED, RESPERATIONS EVEN, NO S/S DISTRESS NOTED.
[2016-07-03 05:58] LABS: BASOPHILS 0.2 % (0.0-2.0); EOSINOPHILS 8.3 % (0-7); HEMATOCRIT 31.1 % (36.0-48.0); HEMOGLOBIN 9.7 g/dL (12-16); IMMATURE GRANULOCYTES 0.2 % (0-5); LYMPHOCYTES 34.8 % (15-50); MCH 28.8 pg (26.0-34.0); MCHC 31.2 g/dL (31.0-37.0); MCV 92.3 fL (80.0-100.0); MEAN PLATELET VOLUME 9.7 fL (7.4-10.4); MONOCYTES 10.7 % (2-11); NEUTROPHILS 45.8 % (40-80); RBC 3.37 10x6/uL (4.00-5.40); RDW 17.8 % (11.5-14.5); WBC 5.5 10x3/uL (4.8-10.8)
[2016-07-03 06:26] LABS: ALBUMIN 2.4 g/dL (3.4-5.0); ANION GAP 8.8 mmol/L (8-16); BILIRUBIN - TOTAL 0.3 mg/dL (0.2-1.3); CALCIUM 8.5 mg/dL (8.5-10.1); CARBON DIOXIDE 28.1 mmol/L (21.0-32.0); POTASSIUM - SERUM 3.9 mmol/L (3.5-5.1); PROTEIN - SERUM 5.1 g/dL (6.4-8.2)
[2016-07-03 06:34] LABS: PLATELET COUNT 333 10x3/uL (130-400)
[2016-07-03 08:39] VITALS: BP 161/86
[2016-07-03 11:46] LABS: HEMATOCRIT 30.3 % (36.0-48.0); HEMOGLOBIN 9.7 g/dL (12-16)
[2016-07-03 12:03] VITALS: BP 134/75
--- NOTE | 2016-07-03 13:23 | NUR ---
ALERT AND ORIENTED X4. AMBULATING IN [place] ACCOMPANIED BY SPOUSE. GAIT STEADY. DENIES PAIN OR SOB. SINUS RHYTHM 82bpm ON TELEMETRY. CONTINUE PLAN OF CARE AND SAFETY PRECAUTIONS.
[2016-07-03] MEDS ORDERED: CARAFATE1 G/10 ML PO ×2 (14:04→15:09)
[2016-07-03] MEDS ORDERED: PROTONIX40 MG PO (14:12)
[2016-07-03 16:34] VITALS: BP 145/87
--- NOTE | 2016-07-03 16:42 | NUR ---
ALERT AND ORIENTED X4. DISCHARGE INSTRUCTIONS GIVEN VERBALLY AND WRITTEN. DISCHARGE PAPERS SIGNED ON CHART. DC LT WRIST IV SL. ESCORT TO RIDE VIA WHEELCHAIR. REMAINS FREE FROM INJURY.
--- NOTE | 2016-07-04 10:48 | DS ---
PATIENT:TASH JEONG :60 MEDICAL RECORD: [id number] DISCHARGE SUMMARY ADMISSION DATE: 06/26/16 DISCHARGE DATE: 07/03/16 DATE OF ADMISSION: 06/26/2016 DATE OF DISCHARGE: 07/03/2016 ADMITTING DIAGNOSES: Profound upper gastrointestinal bleed. HOSPITAL COURSE: This is a 55-year-old white female patient of Dr. Alberto in [place] admitted with diagnoses as outlined above. Details are well-outlined in the history of the present illness, H&P. All events, lab procedures, diagnostic testing are well documented in the records. The patient was admitted to the intensive care unit, supportive blood transfusions given as needed. GI consult with Dr. Jagdish Swenson and Dr. Malinda White was obtained; their recommendations were followed. On admission, hemoglobin critically low at 5. She had a total of 8 units of packed red blood cells during the stay. Hemoglobin did stabilize, it is sitting around 9.7. PERTINENT PROCEDURES BY GI: Colonoscopy was performed by Dr. Swenson showing diverticulosis involving distal descending colon and sigmoid colon. No other findings to terminal ileum. No evidence of current or recent bleed. Etiology at this point, diverticular bleed, which likely could stop. EGD performed by Dr. Swenson on 06/27/2016 showing normal upper endoscopy and gastric bypass. Because hemoglobin dropped again Dr. White repeated the EGD and this time, she did EGD with injection tattoo. She did EGD with the colonoscope significant for a large 3 cm nonhemorrhagic jejunal ulcer in the ____. The patient did well after this, progressed from a full liquid to a regular diet. Hemoglobin has remained stable. She was transferred to the floor. She is ambulating the entire length of the nurses' station without any problems. She is on a regular diet, afebrile. Vital signs stable. Hemoglobin is 9.7. She is dismissed home. She will follow up with Dr. Alberto in a week. She will need upper endoscopy in the future to document healing of the jejunal ulcer. DIAGNOSES AT DISCHARGE 1. Gastrointestinal bleed. 2. Acute blood loss anemia. 3. Hypernatremia that has resolved. Sodium 142. 4. Hypokalemia, resolved. Potassium is normalized. 5. Gastroesophageal reflux disease. 6. Obesity. 7. Hypertension. 8. Hyperlipidemia. 9. Bronchitis. 10. History of alcohol use. She will go home on b.i.d. Protonix as well as Carafate elixir. Please refer to med rec. Greater than 30 minutes was spent on this discharge. DISCHARGE SUMMARY REPORT [id number] TASH JEONG TRANSINT:[id number] Voice Confirmation ID: [id number] DOCUMENT ID: [id number] Dictated By: HILLARY PEREZ RN I have interviewed/examined the above patient and agree with these documented findings. SALLY APPIAH DO at 1048 at 1515 CC: [id number] DICTATION DATE: 07/03/16 1540 [facility] ATTENDANT: 07/04/16 0336 DIS IN 07/03/16 [facility] [address] [place] [address]
--- NOTE | 2016-07-17 12:04 | OP ---
PATIENT NAME: TASH JEONG MEDICAL RECORD: [id number] :60 LOCATION:D.M2 D.2124 ADMISSION DATE:06/26/16 SURGEON: ANA SALINAS DO DATE OF OPERATION: 06/28/2016 PROCEDURE: Colonoscopy. ENDOSCOPIST: Ana Salinas DO. SCOPE: Olympus video colonoscope. MEDICATIONS: Per TIVA anesthesia. INDICATION FOR PROCEDURE: Gastrointestinal bleed status post normal upper endoscopy. FINDINGS: Informed consent was given. The patient was made comfortable with propofol by slow IV push. Once an adequate level of sedation was obtained, the patient was placed in her left side. The endoscope was advanced under direct visualization through the anus to the terminal ileum. There was evidence of some mild diverticulosis in the distal descending and sigmoid colon. There was no evidence of current or recent bleeding. The scope was advanced all the way to the terminal ileum prior to withdrawal, which was 7 minutes in length. There were no abnormal findings other than diverticula which were not bleeding. There was no evidence of current or recent bleeding, which indicates that the source of the gastrointestinal bleed has discontinued. IMPRESSION: Diverticulosis and potentially the source of the gastrointestinal bleed. PLAN AND RECOMMENDATIONS: 1. Continue current medications. 2. Continue monitoring. 3. The patient was encouraged to return to hospital in the future if this occurs again. If this is diverticular and this becomes a common problem, consideration could be given for a local resection of the segment of diverticula. TRANSINT:[id number] Voice Confirmation ID: [id number] DOCUMENT ID: [id number] ANA SALINAS DO at 1204 CC: [id number] DICTATION DATE: 06/28/16 1301 HANDS AND DIAL INSPECTOR: 06/28/16 1431 DIS IN 07/03/16 [facility] [address] [place] [id number]
--- NOTE | 2016-07-17 12:04 | OP ---
PATIENT NAME: TASH JEONG MEDICAL RECORD: [id number] :60 LOCATION:D.M2 D.2124 ADMISSION DATE:06/26/16 SURGEON: ANA SALINAS DO DATE OF OPERATION: 06/27/2016 PROCEDURE: Esophagogastroduodenoscopy. ENDOSCOPIST: Ana Salinas DO. PREOPERATIVE DIAGNOSIS: Gastrointestinal bleed. POSTOPERATIVE DIAGNOSES: 1. Normal upper endoscopy. 2. Gastric bypass. DESCRIPTION OF THE PROCEDURE: After appropriate consent and discussion of the risks and benefits the patient consented to the procedure. Anesthesia was provided in the form of propofol by nurse cephalometric technician. Once the patient was adequately sedated, an upper endoscope was inserted through the mouth and advanced to approximately 15 cm past a gastrojejunal anastomosis. FINDINGS: The entire esophagus appeared normal including the GE junction. The gastric pouch showed normal mucosa. The gastrojejunal anastomosis as well as the afferent jejunal limb all appeared normal. There was no evidence of ulcerations or current or recent bleeding. The upper endoscope is withdrawn from the patient. The patient tolerated the procedure well. ESTIMATED BLOOD LOSS: None. SPECIMENS: None. RECOMMENDATIONS: We will plan to prep the patient this evening or tomorrow morning and perform a lower endoscopy to further evaluate source of gastrointestinal bleed. TRANSINT:[id number] Voice Confirmation ID: [id number] DOCUMENT ID: [id number] ANA SALINAS DO at 1204 CC: [id number] DICTATION DATE: 06/27/16 1030 FIELD REIMBURSEMENT MANAGER: 06/27/16 1622 DIS IN 07/03/16 [place] [id number] [place] [address]
--- NOTE | 2016-07-17 12:04 | CN ---
PATIENT NAME:YUE JEONG MEDICAL RECORD: [id number] : 60 LOCATION:[facility].2124 ADMIT DATE: 06/26/16 ACCOUNT: [id number] CONSULTING PHYSICIAN: ANA SALINAS DO REFERRING PHYSICIAN: TIGRE JONES MD DATE OF CONSULTATION: 06/27/2016 REASON FOR CONSULTATION: GI bleed. HISTORY OF PRESENT ILLNESS: Yue is a 55-year-old female, who presented yesterday evening to [facility] complaining of fatigue, weakness and dark red stools. She states that she has been having a stool since April and has been to the ER several times since then for different things, but has never reported this and this has never been evaluated. On arrival to the hospital, she had some labs checked, which showed a hemoglobin of 5. She was subsequently admitted to the intensive care unit for administration of blood in vital support. She since received 3 units of blood and her hemoglobin has increased to a level of 6.9. She is now getting her fourth unit of blood, currently. She denies heavy use of NSAIDs. She states that she has had a gastric bypass, which was performed around 2012. She does not remember the last time she has had an upper endoscopy and is not sure if she had one around that time. She did have a colonoscopy approximately [address] Carpio and reports that she had a couple of polyps, but was otherwise normal. PAST MEDICAL HISTORY: Includes neuropathy, hypertension, hypercholesterolemia, history of cardiac arrhythmias, bronchitis. PAST SURGICAL HISTORY: Includes hysterectomy, carpal tunnel procedure in the left wrist and gastric bypass. FAMILY HISTORY: Noncontributory. SOCIAL HISTORY: The patient denies use of tobacco, alcohol or history of illicit drug use. ALLERGIES: No known drug allergies. MEDICATIONS: At home include sertraline, lamotrigine, trazodone, carvedilol, quinapril, multivitamin, vitamin D, fish oil, clonazepam, hydrocodone 7.5 mg, metoprolol, magnesium oxide and simvastatin. REVIEW OF SYSTEMS: GENERAL: She reports fatigue and weakness. HEAD, EYES, EARS, NOSE AND THROAT: Denies changes in vision, hearing or persistent sore throat. She has had some dysphagia. She denies odynophagia. CARDIOVASCULAR: Denies chest pain or palpitations. RESPIRATORY: Denies shortness of breath, cough, hemoptysis or wheezing. GASTROINTESTINAL: She has had some melanotic stools for a few months now. She states that she vomits a lot, but has not had any bright red bloody vomitus and has not vomited over the past few days. NEUROLOGIC: Denies mental status changes or paralysis. She has had some paresthesias and neuropathy. SKIN: Denies rashes, hives or lesions. PSYCHIATRIC: Denies depression or anxiety. MUSCULOSKELETAL: Denies joint swelling or pain. CONSULT REPORT [id number] YUE JEONG PHYSICAL EXAMINATION: VITAL SIGNS: Blood pressure 123/91, heart rate 110, respiratory rate 16, oxygen saturation 95% on room air. GENERAL: She is awake, alert and oriented, currently in no acute distress. HEAD, EYES, EARS, NOSE AND THROAT: Head is atraumatic, normocephalic. Extraocular muscles are intact without scleral icterus or injection. Posterior oropharynx is ____ without exudates. HEART: Tachycardic, but regular. LUNGS: Clear to auscultation bilaterally. ABDOMEN: Obese, soft, mildly tender to palpation in the right upper quadrant. Bowel sounds are present, but hypoactive. EXTREMITIES: No cyanosis, clubbing or edema. PSYCHIATRIC: Mood and affect appropriate for time and place. NEUROLOGIC: Alert and oriented. LABORATORY DATA: Review of labs, most recent CBC shows a hemoglobin of 6.9, hematocrit 20.3, platelet level 142. White count is 10.6. Most recent chemistry shows sodium 142, potassium 4.1, chloride 111, bicarbonate 24, BUN 43, creatinine 0.9, glucose is 124. Liver studies show bilirubin 0.88, AST 11, ALT of 15, alkaline phosphatase of 31. TSH 2.14. Lipase 185. Her INR is 1.04. Review of imaging, a CT scan of her abdomen and pelvis was performed without contrast and only revealed evidence of a gastric bypass. IMPRESSION: Gastrointestinal bleed. Suspect upper gastrointestinal source with melanotic type stools. PLAN AND RECOMMENDATIONS: 1. Continue supportive care with transfusion of blood products as indicated. 2. We will perform endoscopy at this time to evaluate potential source of GI bleed. If the upper endoscopy is negative, the patient will be prepped accordingly for a lower endoscopy to follow as soon as possible. 3. Further recommendations to follow findings at time of endoscopy. TRANSINT:[id number] Voice Confirmation ID: [id number] DOCUMENT ID: [id number] ANA SALINAS DO at 1204 CC: [id number] DICTATION DATE: 06/27/16 1004 DATABASE SUPPORT: 06/27/16 1312 DIS IN 07/03/16 [place] [id number] [place] [id number]
== END 2016-07-03 16:44 | disposition home or self-care (01) | DRG 378 ==
LOC: D.ER 17:51 → D.ICU 20:22 → D.M2 07-02 09:48
PROVIDERS: Emergency Medicine; Internal Medicine Gastroenterology; Nurse Practitioner Acute Care; ADMIT Family Medicine Adult Medicine
PROC: 0DJ08ZZ Inspection of Upper Intestinal Tract, Via Natural or Artificial Opening Endoscopic (ICD-10-PCS; principal; 2016-06-27 10:00)
PROC: 0DJD8ZZ Inspection of Lower Intestinal Tract, Via Natural or Artificial Opening Endoscopic (ICD-10-PCS; 2016-06-28)
PROC: 0DJ08ZZ Inspection of Upper Intestinal Tract, Via Natural or Artificial Opening Endoscopic (ICD-10-PCS; 2016-06-30)
DX: K57.31 Diverticulosis of large intestine without perforation or abscess with bleeding (principal); D62 Acute posthemorrhagic anemia; E87.0 Hyperosmolality and hypernatremia; I10 Essential (primary) hypertension; K21.9 Gastro-esophageal reflux disease without esophagitis; E66.9 Obesity, unspecified; Z68.38 Body mass index [BMI] 38.0-38.9, adult; E78.00 Pure hypercholesterolemia, unspecified; K28.9 Gastrojejunal ulcer, unspecified as acute or chronic, without hemorrhage or perforation; E78.5 Hyperlipidemia, unspecified; E87.6 Hypokalemia; Z98.84 Bariatric surgery status; Z87.891 Personal history of nicotine dependence

== ENCOUNTER → 2016-07-19 08:03 | Outpatient (CLI) | payer MEDICAID ==
[2016-06-27 08:25] VITALS: BMI 38.8
[~2016-07-19 08:03] MED LIST changes: +ATARAX 25 MG TA25 MG PO; +CARAFATE1 G/10 ML PO; +GEODON20 MG PO; +HYDROCHLOROTHIA25 MG PO; +HYDROCODON-ACE1 EAC7 PO; +LEXAPRO10 MG PO; +LOVASTATIN40 MG PO; +PROTONIX40 MG PO
[2016-07-19 08:24] LABS: BASOPHILS 0.6 % (0.0-2.0); EOSINOPHILS 4.7 % (0-7); HEMOGLOBIN 11.5 g/dL (12-16); IMMATURE GRANULOCYTES 0.2 % (0-5); LYMPHOCYTES 37.2 % (15-50); MCHC 31.1 g/dL (31.0-37.0); MCV 93.4 fL (80.0-100.0); MEAN PLATELET VOLUME 9.7 fL (7.4-10.4); MONOCYTES 6.5 % (2-11); NEUTROPHILS 50.8 % (40-80); PLATELET COUNT 359 10x3/uL (130-400); RBC 3.96 10x6/uL (4.00-5.40); RDW 16.2 % (11.5-14.5); WBC 6.6 10x3/uL (4.8-10.8)
== END | disposition home or self-care (01) ==
LOC: D.LAB 08:03 → D.CT 08:30
PROVIDERS: Internal Medicine Gastroenterology
DX: K25.4 Chronic or unspecified gastric ulcer with hemorrhage (principal); R13.10 Dysphagia, unspecified; R11.0 Nausea; R10.9 Unspecified abdominal pain

== ENCOUNTER → 2016-09-13 02:57 | Outpatient (CLI) | payer MEDICAID ==
[2016-06-27 08:25] VITALS: BMI 38.8
== END | disposition home or self-care (01) ==
LOC: D.MAMMO 08-08 15:15
DX: Z12.31 Encounter for screening mammogram for malignant neoplasm of breast (principal)

== ENCOUNTER 2018-04-15 19:01 | Inpatient (IN) | payer MEDICAID ==
[~2018-04-15] VITALS: Ht 162.6 cm; Wt 101.6 kg
--- NOTE | ~2018-04-15 | MORECARE ---
CASE MANAGEMENT DISCHARGE SUMMARY PATIENT: TASH JEONG UNIT: [id number] ADM DATE: 04/15/18 AGE: 57 : 60 SEX: F ROOM/BED: D.2204 AUTHOR: DANIDOC PHYSICIAN: REFERRING PHYSICIAN: LATASHA VELASCO MD DATE OF SERVICE: 04/18/18 Discharge Plan Patient Name: TASH JEONG Facility: [facility]:[place] : 1960 Planned Disposition: Home Anticipated Discharge Date: 04/21/18 Discharge Date: Expected LOS: 6 Initial Reviewer: [email or web address] Initial Review Date: 04/17/2018 Generated: 04/18/18 3:39 pm Comments DCP- Discharge Planning Updated by [email or web address]: Dede Johnson on 04/18/18 1:[address] Patient Name: TASH JEONG Encounter No: [id number] : 1960 Primary Insurance: MEDICAID [place] Anticipated DC Date: 04-21-2018 Planned Disposition: Home External Planned Provider: : DCP follow-up note: Patient and family in agreement with discharge plan, PATIENT STILL REFUSES HH. No changes to plan. Case management will follow and assist as needed. Dede Johnson DCP- Discharge Planning Updated by [email or web address]: Sharon Rice on 04/17/18 7:[address] Patient Name: TASH JEONG Admission Status: ER Accout number: [id number] Admission Date: 04-15-2018 : 1960 Admission Diagnosis: Attending: LATASHA REEDER Current LOS: 2 Anticipated DC Date: 04-21-2018 Planned Disposition: Home Primary Insurance: MEDICAID [place] [facility]S AND PLANS. PATIENT STATED SHE LIVES WITH HER BOYFRIEND (ALEJANDRO) AND HE WILL DRIVE HER HOME AT DISCHARGE. PATIENT STATED SHE HAS 2 STEPS TO ENTER HER HOME AND NO STAIRS INSIDE. PATIENT STATED SHE IS INDEPENDENT WITH HER CARE AND HAS A SHOWER CHAIR, BS COMMODE, AND WALKER AT HOME IF NEEDED. PATIENT REFUSED HOME HEALTH. CM WILL CONTINUE TO FOLLOW PATIENT WITH D/C NEEDS AND PLANS. PCP [facility] ALEJANDRO SQUIRES (LEBRONIENJong) [phone] Coal Dumping Equipment Operator: Sharon Rice DCPIA - Discharge Planning Initial Assessment Updated by [email or web address]: Sharon Rice on 04/17/18 8:39 pm * Is the patient Alert and Oriented? Yes * How many steps to enter\exit or inside your home? * PCP DR. SANTACRUZ * Pharmacy [facility] * Preadmission Environment Home with Family * ADLs Independent * Equipment Bedside Commode Shower Chair Walker * List name and contact numbers for known caregivers / representatives who currently or will assist patient after discharge: ALEJANDRO SQUIRES (LEBRONIENJong) [phone] * Verbal permission to speak to the caregivers and representatives has been obtained from the patient. Yes * Community resources currently utilized None * Additional services required to return to the preadmission environment? Yes * Can the patient safely return to the preadmission environment? Yes * Has this patient been hospitalized within the prior 30 days at any hospital? No Last DP export: 04/17/18 7:44 Patient Name: TASH JEONG Page 89719 at 1439 All edits/amendments must be made on the electronic document DICTATION DATE: 04/18/181437 FOOD SCIENCE TECHNICIAN: SONAL 04/18/181437 RPT#: [id number] DC DATE: STATUS: ADM IN [facility] [address] [place] [address] END OF REPORT
--- NOTE | ~2018-04-15 | MORECARE ---
CASE MANAGEMENT DISCHARGE SUMMARY PATIENT: TASH JEONG UNIT: [id number] ADM DATE: 04/15/18 AGE: 57 : 60 SEX: F ROOM/BED: D.2204 AUTHOR: MAYANK LOUISE PHYSICIAN: REFERRING PHYSICIAN: LATASHA VELASCO MD DATE OF SERVICE: 04/21/18 Discharge Plan Patient Name: TASH JEONG Facility: [facility]:[place] : 1960 Planned Disposition: Home Anticipated Discharge Date: 04/21/18 Discharge Date: 04/18/2018 Expected LOS: 6 Initial Reviewer: [email or web address] Initial Review Date: 04/17/2018 Generated: 04/21/18 3:47 pm Comments DCP- Discharge Planning Updated by [email or web address]: Dede Johnson on 04/18/18 1:[address] Patient Name: TASH JEONG Encounter No: [id number] : 1960 Primary Insurance: MEDICAID [place] Anticipated DC Date: 04-21-2018 Planned Disposition: Home External Planned Provider: : DCP follow-up note: Patient and family in agreement with discharge plan, PATIENT STILL REFUSES HH. No changes to plan. Case management will follow and assist as needed. Dede Johnson DCP- Discharge Planning Updated by [email or web address]: Sharon Rice on 04/17/18 7:[address] Patient Name: TASH JEONG Admission Status: ER Accout number: [id number] Admission Date: 04-15-2018 : 1960 Admission Diagnosis: Attending: LATASHA REEDER Current LOS: 2 Anticipated DC Date: 04-21-2018 Planned Disposition: Home Primary Insurance: MEDICAID [place] [facility]/C NEEDS AND PLANS. PATIENT STATED SHE LIVES WITH HER BOYFRIEND (ALEJANDRO) AND HE WILL DRIVE HER HOME AT DISCHARGE. PATIENT STATED SHE HAS 2 STEPS TO ENTER HER HOME AND NO STAIRS INSIDE. PATIENT STATED SHE IS INDEPENDENT WITH HER CARE AND HAS A SHOWER CHAIR, BS COMMODE, AND WALKER AT HOME IF NEEDED. PATIENT REFUSED HOME HEALTH. CM WILL CONTINUE TO FOLLOW PATIENT WITH D/C NEEDS AND PLANS. PCP [facility] ALEJANDRO SQUIRES (LEBRONIENJong) [phone] Clamp Truck Driver: Sharon Rice DCPIA - Discharge Planning Initial Assessment Updated by [email or web address]: Sharon Rice on 04/17/18 8:39 pm * Is the patient Alert and Oriented? Yes * How many steps to enter\exit or inside your home? * PCP DR. SANTACRUZ * [facility] * Preadmission Environment Home with Family * ADLs Independent * Equipment Bedside Commode Shower Chair Walker * List name and contact numbers for known caregivers / representatives who currently or will assist patient after discharge: ALEJANDRO SQUIRES (KIERRA) [phone] * Verbal permission to speak to the caregivers and representatives has been obtained from the patient. Yes * Community resources currently utilized None * Additional services required to return to the preadmission environment? Yes * Can the patient safely return to the preadmission environment? Yes * Has this patient been hospitalized within the prior 30 days at any hospital? No Last DP export: 04/18/18 1:39 Patient Name: TASH JEONG Page 02001 at 1447 All edits/amendments must be made on the electronic document DICTATION DATE: 04/21/181445 PAPER TUBE GRADER: SONAL 04/21/181445 RPT#: [id number] DC DATE:04/18/18 STATUS: DIS IN [facility] [address] [place] [address] END OF REPORT
--- NOTE | ~2018-04-15 | MORECARE ---
CASE MANAGEMENT DISCHARGE SUMMARY PATIENT: TASH JEONG UNIT: [id number] ADM DATE: 04/15/18 AGE: 57 : 60 SEX: F ROOM/BED: D.2204 AUTHOR: DANI,DOC PHYSICIAN: REFERRING PHYSICIAN: LATASHA VELASCO MD DATE OF SERVICE: 04/17/18 Discharge Plan Patient Name: TASH JEONG Facility: [facility]:[place] : 1960 Planned Disposition: Home Anticipated Discharge Date: 04/21/18 Discharge Date: Expected LOS: 6 Initial Reviewer: [email or web address] Initial Review Date: 04/17/2018 Generated: 04/17/18 9:44 pm Comments DCP- Discharge Planning Updated by [email or web address]: Sharon Rice on 04/17/18 7:[address] Patient Name: TASH JEONG Admission Status: ER Accout number: [id number] Admission Date: 04-15-2018 : 1960 Admission Diagnosis: Attending: LATASHA REEDER Current LOS: 2 Anticipated DC Date: 04-21-2018 Planned Disposition: Home Primary Insurance: MEDICAID [place] Discharge Planning Comments: [facility] MET WITH PATIENT REGARDING D/C NEEDS AND PLANS. PATIENT STATED SHE LIVES WITH HER BOYFRIEND (ALEJANDRO) AND HE WILL DRIVE HER HOME AT DISCHARGE. PATIENT STATED SHE HAS 2 STEPS TO ENTER HER HOME AND NO STAIRS INSIDE. PATIENT STATED SHE IS INDEPENDENT WITH HER CARE AND HAS A SHOWER CHAIR, BS COMMODE, AND WALKER AT HOME IF NEEDED. PATIENT REFUSED HOME HEALTH. CM WILL CONTINUE TO FOLLOW PATIENT WITH D/C NEEDS AND PLANS. PCP [facility] ON [facility] ALEJANDRO SQUIRES (BOYFRIEND) [phone] Hog Scalder: Sharon Rice DCPIA - Discharge Planning Initial Assessment Updated by [email or web address]: Sharon Rice on 04/17/18 8:39 pm * Is the patient Alert and Oriented? Yes * How many steps to enter\exit or inside your home? * PCP DR. SANTACRUZ * [facility] * Preadmission Environment Home with Family * ADLs Independent * Equipment Bedside Commode Shower Chair Walker * List name and contact numbers for known caregivers / representatives who currently or will assist patient after discharge: ALEJANDRO SQUIRES (BOYFRIEND) [phone] * Verbal permission to speak to the caregivers and representatives has been obtained from the patient. Yes * Community resources currently utilized None * Additional services required to return to the preadmission environment? Yes * Can the patient safely return to the preadmission environment? Yes * Has this patient been hospitalized within the prior 30 days at any hospital? No Patient Name: TASH JEONG Page 96035 at 2044 All edits/amendments must be made on the electronic document DICTATION DATE: 04/17/182042 BUSINESS RESILIENCY MANAGER: SONAL 04/17/182042 RPT#: [id number] DC DATE: STATUS: ADM IN [facility] [address] [place] [address] END OF REPORT
[2018-04-15 20:04] LABS: BASOPHILS 0.3 % (0-2); EOSINOPHILS 0.7 % (0-7); HEMATOCRIT 37.8 % (36.0-48.0); HEMOGLOBIN 12.5 g/dL (12-16); IMMATURE GRANULOCYTES 0.2 % (0-5); LYMPHOCYTES 40.9 % (15-50); MCH 30.9 pg (26.0-34.0); MCHC 33.1 g/dL (31.0-37.0); MCV 93.6 fL (80.0-100.0); MEAN PLATELET VOLUME 10.5 fL (7.4-10.4); MONOCYTES 13.5 % (2-11); NEUTROPHILS 44.4 % (40-80); PLATELET COUNT 329 10x3/uL (130-400); RBC 4.04 10x6/uL (4.00-5.40); WBC 5.9 10x3/uL (4.8-10.8)
[2018-04-15 20:22] LABS: ALBUMIN 3.3 g/dL (3.4-5.0); ANION GAP 18.3 mmol/L (8-16); BILIRUBIN - TOTAL 0.27 mg/dL (0.2-1.3); CALCIUM 9.2 mg/dL (8.5-10.1); CREATININE - SERUM 1.7 mg/dL (0.6-1.3); POTASSIUM - SERUM 3.3 mmol/L (3.5-5.1); PROTEIN - SERUM 7.9 g/dL (6.4-8.2)
[2018-04-16] MEDS ORDERED: SEROQUEL50 MG PO (00:21)
[2018-04-16] MEDS ORDERED: NEURONTIN 300300 MG PO (00:22)
[2018-04-16] MEDS ORDERED: ZOLOFT100 MG PO (00:25)
[2018-04-16 00:35] VITALS: BP 161/91; BMI 38.5
[2018-04-16 04:00] VITALS: BP 121/81
[2018-04-16 04:19] LABS: HEMATOCRIT 33.7 % (36.0-48.0); HEMOGLOBIN 10.9 g/dL (12-16); MCH 31.1 pg (26.0-34.0); MCHC 32.3 g/dL (31.0-37.0); MEAN PLATELET VOLUME 10.7 fL (7.4-10.4); PLATELET COUNT 281 10x3/uL (130-400); RBC 3.51 10x6/uL (4.00-5.40); RDW 15.5 % (11.5-14.5)
[2018-04-16 04:25] LABS: WBC 4.1 10x3/uL (4.8-10.8)
[2018-04-16 04:43] LABS: ALBUMIN 2.7 g/dL (3.4-5.0); ANION GAP 14.8 mmol/L (8-16); BILIRUBIN - TOTAL 0.2 mg/dL (0.2-1.3); CALCIUM 8.1 mg/dL (8.5-10.1); CARBON DIOXIDE 24.9 mmol/L (21.0-32.0); CREATININE - SERUM 1.5 mg/dL (0.6-1.3); POTASSIUM - SERUM 3.7 mmol/L (3.5-5.1); PROTEIN - SERUM 6.5 g/dL (6.4-8.2)
[2018-04-16 05:00] LABS: EOSINOPHILS 1 % (0-7); LYMPHOCYTES 63 % (15-50); MONOCYTES 5 % (2-11); NEUTROPHILS 28 % (40-80); PLATELET ESTIMATE NORMAL
[2018-04-16 08:17] VITALS: BP 179/99
[2018-04-16 12:27] VITALS: Ht 162.6 cm; Wt 101.6 kg
[2018-04-16 12:30] VITALS: BP 145/89
[2018-04-16 16:20] VITALS: BP 161/99
[2018-04-16 21:34] VITALS: BP 116/43
[2018-04-17 00:44] VITALS: BP 117/72
[2018-04-17 04:36] LABS: BASOPHILS 0.4 % (0-2); EOSINOPHILS 3.3 % (0-7); HEMOGLOBIN 10.2 g/dL (12-16); LYMPHOCYTES 38.4 % (15-50); MCH 31.9 pg (26.0-34.0); MCHC 32.9 g/dL (31.0-37.0); MCV 96.9 fL (80.0-100.0); MEAN PLATELET VOLUME 10.7 fL (7.4-10.4); MONOCYTES 7.2 % (2-11); NEUTROPHILS 50.7 % (40-80); PLATELET COUNT 252 10x3/uL (130-400); RDW 15.4 % (11.5-14.5)
[2018-04-17 04:50] LABS: WBC 5.5 10x3/uL (4.8-10.8)
[2018-04-17 05:04] LABS: ALBUMIN 2.5 g/dL (3.4-5.0); ALKALINE PHOSPHATASE 75 U/L (46-116); ALT (SGPT) 54 U/L (10-68); AMYLASE - SERUM 55 U/L (25-115); BILIRUBIN - TOTAL 0.29 mg/dL (0.2-1.3); CALC OSMOLALITY 281 mosm/kg (275-300); CALCIUM 8.3 mg/dL (8.5-10.1); CARBON DIOXIDE 25.2 mmol/L (21.0-32.0); CHLORIDE - SERUM 106 mmol/L (98-107); CREATININE - SERUM 0.8 mg/dL (0.6-1.3); GLUCOSE 81 mg/dL (74-106); LIPASE 323 U/L (73-393); POTASSIUM - SERUM 3.7 mmol/L (3.5-5.1); PROTEIN - SERUM 6.2 g/dL (6.4-8.2); SODIUM 142 mmol/L (136-145); UREA NITROGEN 12 mg/dL (7-18); eGFR NON AFRICAN AMERICAN 78 mL/min (90-120)
[2018-04-17 05:10] VITALS: BP 161/91
[2018-04-17 08:48] VITALS: BP 173/88
[2018-04-17 12:45] VITALS: BP 154/93
[2018-04-17 16:50] VITALS: BP 170/96
[2018-04-17 21:11] VITALS: BP 186/82
[2018-04-18 04:34] VITALS: BP 181/96
[2018-04-18 06:47] LABS: BASOPHILS 0.3 % (0-2); EOSINOPHILS 2.5 % (0-7); HEMOGLOBIN 10.3 g/dL (12-16); LYMPHOCYTES 29.5 % (15-50); MCH 30.3 pg (26.0-34.0); MCHC 31.2 g/dL (31.0-37.0); MCV 97.1 fL (80.0-100.0); MEAN PLATELET VOLUME 11.2 fL (7.4-10.4); MONOCYTES 6.6 % (2-11); NEUTROPHILS 61.1 % (40-80); PLATELET COUNT 278 10x3/uL (130-400); RDW 15.2 % (11.5-14.5); WBC 6.5 10x3/uL (4.8-10.8)
[2018-04-18 07:02] LABS: ALBUMIN 2.6 g/dL (3.4-5.0); ALKALINE PHOSPHATASE 78 U/L (46-116); ALT (SGPT) 47 U/L (10-68); BILIRUBIN - TOTAL 0.38 mg/dL (0.2-1.3); CALCIUM 8.7 mg/dL (8.5-10.1); CARBON DIOXIDE 23.6 mmol/L (21.0-32.0); CHLORIDE - SERUM 108 mmol/L (98-107); CREATININE - SERUM 0.6 mg/dL (0.6-1.3); GLUCOSE 82 mg/dL (74-106); LIPASE 191 U/L (73-393); POTASSIUM - SERUM 3.8 mmol/L (3.5-5.1); PROTEIN - SERUM 6.4 g/dL (6.4-8.2); SODIUM 143 mmol/L (136-145); eGFR NON AFRICAN AMERICAN > 90 mL/min (90-120)
[2018-04-18 07:06] LABS: AMYLASE - SERUM 40 U/L (25-115); CALC OSMOLALITY 281 mosm/kg (275-300); UREA NITROGEN 7 mg/dL (7-18)
[2018-04-18 08:51] VITALS: BP 180/105
[2018-04-18] MEDS ORDERED: VITAMIN B-1100 M1 PO (11:38)
[2018-04-18] MEDS ORDERED: FOLIC ACID1 MG PO (11:38)
[2018-04-18 15:59] VITALS: BP 143/62
== END 2018-04-18 17:36 | disposition home or self-care (01) | DRG 439 ==
LOC: D.ER 19:01 → D.MS 22:55
PROVIDERS: Emergency Medicine; Family Medicine
DX: K85.92 Acute pancreatitis with infected necrosis, unspecified (principal); N17.9 Acute kidney failure, unspecified; I16.0 Hypertensive urgency; E78.5 Hyperlipidemia, unspecified; F10.20 Alcohol dependence, uncomplicated; G62.9 Polyneuropathy, unspecified

== ENCOUNTER 2018-04-21 12:40 | Emergency (ER) | payer MEDICAID ==
[~2018-04-21] VITALS: Ht 162.6 cm; Wt 101.8 kg
[~2018-04-21 12:40] MED LIST changes: +FOLIC ACID1 MG PO; +NEURONTIN 300300 MG PO; +SEROQUEL50 MG PO; +VITAMIN B-1100 M1 PO
[2018-04-21 13:01] VITALS: Ht 162.6 cm; Wt 101.8 kg
[2018-04-21 13:37] LABS: BASOPHILS 0.3 % (0-2); EOSINOPHILS 3.2 % (0-7); HEMATOCRIT 34.8 % (36.0-48.0); HEMOGLOBIN 11.6 g/dL (12-16); IMMATURE GRANULOCYTES 0.3 % (0-5); LYMPHOCYTES 31.1 % (15-50); MCH 31.4 pg (26.0-34.0); MCHC 33.3 g/dL (31.0-37.0); MCV 94.3 fL (80.0-100.0); MONOCYTES 16.2 % (2-11); NEUTROPHILS 48.9 % (40-80); RBC 3.69 10x6/uL (4.00-5.40); RDW 15.2 % (11.5-14.5); WBC 6.7 10x3/uL (4.8-10.8)
[2018-04-21 13:38] LABS: PLATELET COUNT 368 10x3/uL (130-400)
[2018-04-21 13:40] LABS: APPEARANCE CLEAR (CLEAR); BILIRUBIN NEGATIVE (NEGATIVE); COLOR YELLOW (YELLOW); GLUCOSE NEGATIVE (NEGATIVE); KETONE NEGATIVE (NEGATIVE); NITRITE NEGATIVE (NEGATIVE); PROTEIN NEGATIVE (NEGATIVE); SPECIFIC GRAVITY 1.015 (1.005-1.020); UROBILINOGEN NORMAL (NORMAL)
[2018-04-21 14:24] LABS: ALBUMIN 2.7 g/dL (3.4-5.0); ALKALINE PHOSPHATASE 75 U/L (46-116); ALT (SGPT) 32 U/L (10-68); BILIRUBIN - TOTAL 0.31 mg/dL (0.2-1.3); CALC OSMOLALITY 277 mosm/kg (275-300); CALCIUM 8.8 mg/dL (8.5-10.1); CARBON DIOXIDE 23.2 mmol/L (21.0-32.0); CHLORIDE - SERUM 101 mmol/L (98-107); CREATININE - SERUM 1.3 mg/dL (0.6-1.3); GLUCOSE 106 mg/dL (74-106); POTASSIUM - SERUM 3.1 mmol/L (3.5-5.1); PROTEIN - SERUM 6.9 g/dL (6.4-8.2); SODIUM 137 mmol/L (136-145); UREA NITROGEN 24 mg/dL (7-18); eGFR NON AFRICAN AMERICAN 45 mL/min (90-120)
[2018-04-21 14:27] LABS: AMYLASE - SERUM 61 U/L (25-115); LIPASE 474 U/L (73-393); TROPONIN-I < 0.017 ng/mL (0.000-0.060)
[2018-04-21 15:18] LABS: CREATINE KINASE 45 UL (21-215)
[2018-04-21 15:19] LABS: TROPONIN-I < 0.017 ng/mL (0.000-0.060)
[2018-04-21] MEDS ORDERED: NORCO 10-325 TA1 TAB PO (19:06)
[2018-04-21] MEDS ORDERED: PREVACID30 MG PO (19:07)
[2018-04-21] MEDS ORDERED: ZOFRAN ODT4 MG/UDTAB PO (19:08)
[2018-04-21 19:45] VITALS: BP 136/86
== END 2018-04-21 19:45 | disposition home or self-care (01) ==
LOC: D.ER 12:40
PROVIDERS: Emergency Medicine
DX: R07.9 Chest pain, unspecified (principal); K85.90 Acute pancreatitis without necrosis or infection, unspecified; R11.10 Vomiting, unspecified; R11.2 Nausea with vomiting, unspecified; I10 Essential (primary) hypertension

== ENCOUNTER → 2018-08-14 19:53 | Outpatient (CLI) | payer MEDICAID ==
[2018-04-21 13:01] VITALS: BMI 38.5
[~2018-08-14 19:53] MED LIST changes: +NORCO 10-325 TA1 TAB PO; +PREVACID30 MG PO; +ZOFRAN ODT4 MG/UDTAB PO
== END | disposition home or self-care (01) ==
LOC: D.MAMMO 16:15
PROVIDERS: ATTEND General Practice
DX: Z12.31 Encounter for screening mammogram for malignant neoplasm of breast (principal)

== ENCOUNTER 2018-11-21 12:04 | Emergency (ER) | payer MEDICAID ==
[~2018-11-21] VITALS: Ht 162.6 cm; Wt 99.1 kg
[2018-11-21 12:06] VITALS: Ht 162.6 cm; Wt 99.1 kg
[2018-11-21 12:45] LABS: BASOPHILS 0.4 % (0-2); EOSINOPHILS 1.6 % (0-7); HEMATOCRIT 24.9 % (36.0-48.0); HEMOGLOBIN 8.4 g/dL (12-16); IMMATURE GRANULOCYTES 0.3 % (0-5); LYMPHOCYTES 27.2 % (15-50); MCH 29.5 pg (26.0-34.0); MCHC 33.7 g/dL (31.0-37.0); MCV 87.4 fL (80.0-100.0); MEAN PLATELET VOLUME 10.2 fL (7.4-10.4); MONOCYTES 6.5 % (2-11); PLATELET COUNT 386 10x3/uL (130-400); RBC 2.85 10x6/uL (4.00-5.40); RDW 14.9 % (11.5-14.5); WBC 10.7 10x3/uL (4.8-10.8)
[2018-11-21 13:04] LABS: ALBUMIN 3.5 g/dL (3.4-5.0); BILIRUBIN - TOTAL 0.16 mg/dL (0.2-1.3); CARBON DIOXIDE 24.1 mmol/L (21.0-32.0); POTASSIUM - SERUM 4.1 mmol/L (3.5-5.1); PROTEIN - SERUM 6.9 g/dL (6.4-8.2)
[2018-11-21 13:24] LABS: APTT 25.9 SECONDS (22.8-39.4); INR 1.08 (0.85-1.17); PROTIME 13.5 SECONDS (11.6-15.0)
[2018-11-21 16:42] VITALS: BP 112/49
== END 2018-11-21 16:56 | disposition other institution (70) ==
LOC: D.ER 12:04
PROVIDERS: Family Medicine
DX: K92.2 Gastrointestinal hemorrhage, unspecified (principal); D64.9 Anemia, unspecified

== ENCOUNTER → 2018-12-23 08:16 | Outpatient (CLI) | payer MEDICAID ==
[2018-11-21 12:06] VITALS: BMI 37.5
[2018-12-23 08:45] LABS: BASOPHILS 0.5 % (0-2); EOSINOPHILS 3.5 % (0-7); HEMATOCRIT 25.9 % (36.0-48.0); HEMOGLOBIN 8.2 g/dL (12-16); IMMATURE GRANULOCYTES 0.1 % (0-5); MCH 26.9 pg (26.0-34.0); MCHC 31.7 g/dL (31.0-37.0); MCV 84.9 fL (80.0-100.0); MEAN PLATELET VOLUME 8.9 fL (7.4-10.4); MONOCYTES 8.8 % (2-11); NEUTROPHILS 46.1 % (40-80); PLATELET COUNT 510 10x3/uL (130-400); RBC 3.05 10x6/uL (4.00-5.40); RDW 14.5 % (11.5-14.5); WBC 7.8 10x3/uL (4.8-10.8)
[2018-12-23 09:02] LABS: % SATURATION 3 % (15-55); IRON 19 ug/dl (35-150); TOTAL IRON BIND CAPACITY 549 ug/dl (260-445)
[2018-12-23 09:03] LABS: UNSAT IRON BIND CAPACITY 530 ug/dl (150-375)
[2018-12-23 09:14] LABS: FERRITIN 6 ng/mL (3-244)
== END | disposition home or self-care (01) ==
LOC: D.LAB 08:16
PROVIDERS: ATTEND Internal Medicine Gastroenterology
DX: D64.9 Anemia, unspecified (principal); R11.0 Nausea; R10.9 Unspecified abdominal pain

== ENCOUNTER → 2018-12-25 07:54 | Outpatient (CLI) | payer MEDICAID ==
[2018-11-21 12:06] VITALS: BMI 37.5
[2018-12-25 08:45] LABS: BASOPHILS 0.5 % (0-2); EOSINOPHILS 4.1 % (0-7); HEMATOCRIT 26.4 % (36.0-48.0); HEMOGLOBIN 8.3 g/dL (12-16); IMMATURE GRANULOCYTES 0.1 % (0-5); LYMPHOCYTES 40.2 % (15-50); MCH 26.4 pg (26.0-34.0); MCHC 31.4 g/dL (31.0-37.0); MCV 84.1 fL (80.0-100.0); MEAN PLATELET VOLUME 9.7 fL (7.4-10.4); MONOCYTES 8.9 % (2-11); NEUTROPHILS 46.2 % (40-80); PLATELET COUNT 566 10x3/uL (130-400); RBC 3.14 10x6/uL (4.00-5.40); RDW 14.7 % (11.5-14.5); WBC 7.8 10x3/uL (4.8-10.8)
== END | disposition home or self-care (01) ==
LOC: D.LAB 07:54
PROVIDERS: ATTEND Internal Medicine Gastroenterology
DX: D50.9 Iron deficiency anemia, unspecified (principal)

== ENCOUNTER 2018-12-29 15:13 | Outpatient (CLI) | payer MEDICAID ==
[~2018-12-29] VITALS: Ht 162.6 cm; Wt 99.1 kg
[2018-12-29 09:15] LABS: BASOPHILS 0.4 % (0-2); EOSINOPHILS 2.9 % (0-7); HEMATOCRIT 25.8 % (36.0-48.0); MCH 26.1 pg (26.0-34.0); NEUTROPHILS 41.7 % (40-80); PLATELET COUNT 516 10x3/uL (130-400); RBC 3.07 10x6/uL (4.00-5.40); RDW 14.7 % (11.5-14.5); WBC 8.2 10x3/uL (4.8-10.8)
[2018-12-29 16:23] VITALS: Ht 162.6 cm; Wt 99.1 kg
--- NOTE | 2018-12-29 19:35 | NUR ---
PT STATED SHE DIDNT FEEL GOOD AND SHE DIDNT KNOW WHY. HX OF ANXIETY VS 123/73 O2 SAT 98 HR 77 RESP 20. BLOOD RESUMED. IV SITE W/O SWELLING
== END 2018-12-29 20:45 | disposition home or self-care (01) ==
LOC: D.OPS 15:13 → D.LAB 15:30 → D.OPS 20:45
PROVIDERS: ATTEND Internal Medicine Gastroenterology
DX: D50.9 Iron deficiency anemia, unspecified (principal)

== ENCOUNTER → 2019-03-09 09:00 | Outpatient (CLI) | payer MEDICAID ==
[2018-12-29 16:23] VITALS: BMI 37.5
== END | disposition home or self-care (01) ==
LOC: D.RAD 09:00
PROVIDERS: ATTEND Internal Medicine Gastroenterology
DX: D50.9 Iron deficiency anemia, unspecified (principal)

== ENCOUNTER 2020-06-17 13:23 | Inpatient (IN) | payer MEDICAID ==
[~2020-06-17] VITALS: Ht 162.6 cm; Wt 92.2 kg
--- NOTE | ~2020-06-17 | EC ---
PATIENT:TASH JEONG DATE OF SERVICE: 06/17/20 SEX: F MEDICAL RECORD: [id number] DATE OF : 60 LOCATION[facility] AGE OF PATIENT: 59 ADMISSION DATE: 06/17/20 REFERRING PHYSICIAN: INTERPRETING PHYSICIAN: JUSTEN JACQUES MD ECHOCARDIOGRAM REPORT ECHO CHARGES 5 ECHO LIMITED Date: 06/18/20 CLINICAL DIAGNOSIS: HYPOTENSION ECHOCARDIOGRAPHIC MEASUREMENTS (adult normal given) AC root (d.<3.7cm) 0 cm LV Septum d (<1.2 cm> 0 cm Valve Excursion 0 cm LV Septum (systole) 0 cm Left Atria (s.<4.0cm> 0 cm LVPW d(<1.2cm) 0 cm RV (d.<2.3cm) 0 cm LVPW (sytole) 0 cm LV diastole(<5.6CM) 0 cm MV E-F(>70mm/sec) 0 cm LV systole 0 cm LVOT Diameter 0 cm MV exc.(>10mm) 0 cm Est.ejection fraction (50-75%) 0 % DOPPLER: LVIT cm/sec A 0 cm/sec E cm/sec LA 0 cm/sec RVSP 21 mmHg LVOT 00 cm/sec AOP1/2T m/s Asc. Ao 0 cm/sec RVOT 0 cm/sec RA 0 cm/sec PA 0 cm/sec AV Gradient Peak 0 mmHg AV Mean 0 mmHg AV Area 0 cm MV Gradient Peak 0 mmHg MV Mean 0 mmHg MV Area 0 cm COMMENTS: Elevator Installer Apprentice: Aren GAUTAM Smoking Pipe Repairer: Susana Jacques TAPE# Pericardial Effusion N DATE OF SERVICE: 06/19/2020 PROCEDURE: Transthoracic echocardiogram. FINDINGS: Left ventricle shows left ventricular hypertrophy. Ejection fraction 55%. The mitral valve appears to be normal. The aortic valve appears to be grossly normal. ECHOCARDIOGRAM REPORT [id number] TASH JEONG The right ventricle appears to be mildly dilated; however, the right ventricular systolic pressure is normal. Pulmonic valve appears to be normal. There is no significant pericardial effusion. TRANSINT:[id number] Voice Confirmation ID: [id number] DOCUMENT ID: [id number] JUSTEN JACQUES MD CC: [id number] DICTATION DATE: 06/19/20 1529 COPY OPERATOR: 06/19/20 1950 ADM IN [facility] [address] [place] [address]
[~2020-06-17 13:23] MED LIST changes: +CYCLOBENZAPRINE10 MG PO; +HYDRALAZINE HCL25 MG PO; +KEFLEX500 MG PO; +LAMICTAL200 M1 PO; +LOVASTATIN20 MG PO; +PEPCID40 MG PO
[2020-06-17 14:16] LABS: BASOPHILS 0.6 % (0-2); EOSINOPHILS 1.3 % (0-7); HEMATOCRIT 31.4 % (36.0-48.0); HEMOGLOBIN 10.5 g/dL (12-16); IMMATURE GRANULOCYTES 0.3 % (0-5); LYMPHOCYTE ABS# 1.06 10x3/uL (1.18-3.74); LYMPHOCYTES 33.9 % (15-50); MCH 32.8 pg (26.0-34.0); MCHC 33.4 g/dL (31.0-37.0); MCV 98.1 fL (80.0-100.0); MEAN PLATELET VOLUME 11.1 fL (7.4-10.4); MONOCYTES 16.3 % (2-11); NEUTROPHIL ABS# 1.49 10x3/uL (1.56-6.13); NEUTROPHILS 47.6 % (40-80); PLATELET COUNT 179 10x3/uL (130-400); RDW 13.8 % (11.5-14.5); WBC 3.1 10x3/uL (4.8-10.8)
[2020-06-17 14:24] LABS: APTT 27.8 SECONDS (22.8-39.4); INR 1.22 (0.85-1.17); PROTIME 14.3 SECONDS (11.6-15.0)
[2020-06-17 14:26] LABS: BILIRUBIN 2+ (NEGATIVE); KETONE NEGATIVE (NEGATIVE); NITRITE NEGATIVE (NEGATIVE); UROBILINOGEN 4 mg/dL (< 2)
[2020-06-17 14:28] LABS: SQUAMOUS EPITHELIAL 0-5 HPF (0-4); WHITE CELLS - URINE 0-5 HPF (0-4)
[2020-06-17 14:29] LABS: BACTERIA FEW HPF (NONE SEEN)
[2020-06-17 14:33] VITALS: BP 77/58
[2020-06-17 14:34] LABS: UDS - AMPHET NEGATIVE QUAL (NEGATIVE); UDS - BARB NEGATIVE QUAL (NEGATIVE); UDS - BENZO NEGATIVE QUAL (NEGATIVE); UDS - COCAINE NEGATIVE QUAL (NEGATIVE); UDS - OPIATE NEGATIVE QUAL (NEGATIVE); UDS - PCP NEGATIVE QUAL (NEGATIVE); UDS - THC NEGATIVE QUAL (NEGATIVE)
[2020-06-17 14:39] LABS: ACETAMINOPHEN 0.1 ug/mL (10.0-30.0); ALBUMIN 2.2 g/dL (3.4-5.0); ALKALINE PHOSPHATASE 238 U/L (30-120); ALT (SGPT) 276 U/L (10-68); CALC OSMOLALITY 263 mosm/kg (275-300); CALCIUM 8.5 mg/dL (8.5-10.1); CARBON DIOXIDE 30.5 mmol/L (21.0-32.0); CHLORIDE - SERUM 90 mmol/L (98-107); CREATINE KINASE 170 UL (21-215); CREATININE - SERUM 2.5 mg/dL (0.6-1.3); GLUCOSE 117 mg/dL (74-106); LIPASE 393 U/L (73-393); MAGNESIUM - SERUM 2.1 mg/dL (1.8-2.4); PRO BNP 246 pg/mL (0-125); PROTEIN - SERUM 5.4 g/dL (6.4-8.2); SODIUM 129 mmol/L (136-145); UREA NITROGEN 23 mg/dL (7-18); eGFR NON AFRICAN AMERICAN 21 mL/min (90-120)
[2020-06-17 14:41] LABS: POTASSIUM - SERUM 2.2 mmol/L (3.5-5.1); TROPONIN-I < 0.017 ng/mL (0.000-0.060)
[2020-06-17 16:26] VITALS: BP 86/56
--- NOTE | 2020-06-17 19:30 | NUR ---
ASSUMED CARE OF PATIENT, RESTING QUIETLY AT THIS TIME, NO COMPLAINTS,
--- NOTE | 2020-06-17 20:27 | NUR ---
PATIENT ACCIDENTLY PULLED HER IV OUT TO LEFT , A NEW ON ESTABLISHED TO [facility], PATIENT REPOSITIONED IN THE BED, CLEANED UP. CALL LIGHT WITHIN REACH.
[2020-06-17 20:28] VITALS: BP 80/46
[2020-06-17 20:36] LABS: TROPONIN-I < 0.017 ng/mL (0.000-0.060)
[2020-06-17 20:49] LABS: CREATINE KINASE 325 UL (21-215)
--- NOTE | 2020-06-17 21:00 | NUR ---
PATIENT HAS MULTIPLE BRUISING TO HER HIPS AND BUTTOCK, SOME RED, SOME DEEP PURPLE IN COLOR AND ONE GRAYISH IN COLOR, PATIENT STATES HAS FALLEN.
[2020-06-18] VITALS (23 sets, daily range): BP systolic 61–130; BP diastolic 35–117; Ht 162.6 cm; Wt 92.2 kg
--- NOTE | 2020-06-18 00:47 | NUR ---
PATIENT PULLED OUT HER IV, NEW ONE ESTABLISHED.
--- NOTE | 2020-06-18 00:48 | NUR ---
PATIENT HAS ABOUT 200 CC IN URINE OUTPUT, DARK YELLOW IN COLOR.
--- NOTE | 2020-06-18 00:49 | NUR ---
NS THAT WAS STARTED AT 194 STOP TIME 0015.
[2020-06-18] MEDS ORDERED: ZOCOR20 MG (01:22)
[2020-06-18] MEDS ORDERED: NEURONTIN 300300 MG PO (01:22)
[2020-06-18] MEDS ORDERED: LOW DOSE ASPIRI81 M1 PO (01:24)
[2020-06-18] MEDS ORDERED: CENTRUM SILVER1 EAC3 PO (01:25)
[2020-06-18 04:12] LABS: BASOPHILS 0.5 % (0-2); EOSINOPHILS 1.9 % (0-7); HEMATOCRIT 25.5 % (36.0-48.0); HEMOGLOBIN 8.5 g/dL (12-16); IMMATURE GRANULOCYTES 0.3 % (0-5); LYMPHOCYTES 37.2 % (15-50); MCH 32.3 pg (26.0-34.0); MCHC 33.3 g/dL (31.0-37.0); MEAN PLATELET VOLUME 11.4 fL (7.4-10.4); MONOCYTES 15.7 % (2-11); NEUTROPHIL ABS# 1.67 10x3/uL (1.56-6.13); NEUTROPHILS 44.4 % (40-80); PLATELET COUNT 214 10x3/uL (130-400); RBC 2.63 10x6/uL (4.00-5.40); WBC 3.8 10x3/uL (4.8-10.8)
[2020-06-18 04:49] LABS: ALBUMIN 1.8 g/dL (3.4-5.0); ALKALINE PHOSPHATASE 201 U/L (30-120); ALT (SGPT) 217 U/L (10-68); BILIRUBIN - TOTAL 3.01 mg/dL (0.2-1.3); CALC OSMOLALITY 265 mosm/kg (275-300); CALCIUM 7.8 mg/dL (8.5-10.1); CARBON DIOXIDE 28.7 mmol/L (21.0-32.0); CHLORIDE - SERUM 97 mmol/L (98-107); CKMB 0.7 U/L (0.0-3.6); CREATINE KINASE 161 UL (21-215); CREATININE - SERUM 2.4 mg/dL (0.6-1.3); GLUCOSE 80 mg/dL (74-106); PROTEIN - SERUM 4.4 g/dL (6.4-8.2); SODIUM 131 mmol/L (136-145); TROPONIN-I < 0.017 ng/mL (0.000-0.060); UREA NITROGEN 23 mg/dL (7-18); eGFR NON AFRICAN AMERICAN 22 mL/min (90-120)
[2020-06-18 04:58] LABS: MAGNESIUM - SERUM 2.7 mg/dL (1.8-2.4)
[2020-06-18 04:59] LABS: POTASSIUM - SERUM 2.6 mmol/L (3.5-5.1)
--- NOTE | 2020-06-18 06:14 | NUR ---
PATIENT CONTINUES TO BE HYPOTENSIVE. CARDIOLOGY CONSULTED. POTASSIUM STILL LOW THIS AM, INITIATED ELECTROLYTE PROTOCOL.
[2020-06-18 15:08] LABS: MAGNESIUM - SERUM 2.6 mg/dL (1.8-2.4)
[2020-06-18 15:18] LABS: POTASSIUM - SERUM 3.1 mmol/L (3.5-5.1)
[2020-06-18 15:48] LABS: ERYTHROCYTE SEDIMENTATION RATE 9 mm/hr (0-30)
--- NOTE | 2020-06-18 17:02 | NUR ---
REC'D TO ICU. BP 85/65(79). HR 72. KCL REPLACEMENT INFUSING AT PRESENT TIME. ALL MONITORING EQUIPMENT ATTACHED.
--- NOTE | 2020-06-18 21:27 | NUR ---
Rocio Zhao, HOUSEKEEPING ROOM INSPECTOR paged. Brief admit hx provided. Informed that pt is vomitting and no PRNs ordered. HOUSEKEEPING ROOM INSPECTOR states she will place orders.
--- NOTE | 2020-06-18 23:05 | NUR ---
warm blankets provided to pt and partial linen change completed.
[2020-06-18 23:38] LABS: BILIRUBIN NEGATIVE (NEGATIVE); KETONE NEGATIVE (NEGATIVE); NITRITE NEGATIVE (NEGATIVE); UROBILINOGEN 2 mg/dL (< 2); WHITE CELLS - URINE OCC HPF (0-4)
[2020-06-18 23:39] LABS: BACTERIA MODERATE HPF (NONE SEEN)
[2020-06-18 23:43] LABS: CREATININE - URINE 80.6 mg/dL (30-125); POTASSIUM - URINE 23.1 MMOL/L (12.0-62.0); PRO/CRE RATIO URINE 0.9 mg/g; PROTEIN - URINE 76.4 mg/dL (0.0-11.9)
[2020-06-19] VITALS (93 sets, daily range): BP systolic 54–166; BP diastolic 40–135
--- NOTE | 2020-06-19 03:14 | NUR ---
lab at bedside. unable to get labs.
--- NOTE | 2020-06-19 04:40 | NUR ---
lab at bedside
[2020-06-19 05:30] LABS: ANION GAP 13.9 mmol/L (8-16); BILIRUBIN - TOTAL 3.6 mg/dL (0.2-1.3); CALCIUM 8.4 mg/dL (8.5-10.1); CARBON DIOXIDE 20.2 mmol/L (21.0-32.0); CREATININE - SERUM 1.5 mg/dL (0.6-1.3); MAGNESIUM - SERUM 2.2 mg/dL (1.8-2.4); POTASSIUM - SERUM 5.1 mmol/L (3.5-5.1); PROTEIN - SERUM 5.3 g/dL (6.4-8.2)
[2020-06-19 06:57] LABS: LYMPHOCYTE ABS# 1.37 10x3/uL (1.18-3.74); MCH 33.2 pg (26.0-34.0); MCV 97.9 fL (80.0-100.0); MEAN PLATELET VOLUME 12.1 fL (7.4-10.4); NEUTROPHIL ABS# 3.48 10x3/uL (1.56-6.13); PLATELET COUNT 244 10x3/uL (130-400); RDW 14.6 % (11.5-14.5)
[2020-06-19 06:58] LABS: HEMATOCRIT 32.1 % (36.0-48.0); HEMOGLOBIN 10.9 g/dL (12-16); RBC 3.28 10x6/uL (4.00-5.40); WBC 6.8 10x3/uL (4.8-10.8)
[2020-06-19 07:26] LABS: EOSINOPHILS 4 % (0-7); LYMPHOCYTES 33 % (15-50); MONOCYTES 2 % (2-11); NEUTROPHILS 59 % (40-80); PLATELET ESTIMATE NORMAL
--- NOTE | 2020-06-19 11:48 | NUR ---
0700 REPORT RECIEVED AND CARE ASSUMED OF PATIENT. SEE FLOW SHEET FOR SHIFT ASSESMENT FINDINGS... 0830 BREAKFAST SERVED AND PATIENT IS FEEDING SELF. [address] IN TO SEE PATIENT.. UPDATE IS GIVEN.. 1030 SLEEPING
--- NOTE | 2020-06-19 12:05 | NUR ---
LUNCH TRAY SERVED .. PATIENT BECAME NAUSEATED AND VOMITING.. TRAY REMOVED AND ZOFRAN GIVEN IV
--- NOTE | 2020-06-19 19:30 | NUR ---
RECEIVED BEDSIDE REPORT. ROUNDING COMPLETE. PATIENT IS ALERT AND ORIENTED, RESTING COMFORTABLY IN BED. RESPIRATIONS ARE EVEN AND UNLABORED. NO S/S OF DISTRESS. NO C/O PAIN. PATIENT REMAINS ON DOBUTAMINE AND DOPAMINE GTT.
[2020-06-20] VITALS (32 sets, daily range): BP systolic 84–151; BP diastolic 52–92
--- NOTE | 2020-06-20 03:30 | NUR ---
PATIENT B/P 112/72 MAP (90). DOPAMINE GTT TURNED OFF.
[2020-06-20 05:37] LABS: BASOPHILS 0.2 % (0-2); EOSINOPHILS 1.2 % (0-7); HEMATOCRIT 29.3 % (36.0-48.0); HEMOGLOBIN 9.6 g/dL (12-16); LYMPHOCYTE ABS# 1.34 10x3/uL (1.18-3.74); LYMPHOCYTES 32.9 % (15-50); MCHC 32.8 g/dL (31.0-37.0); MCV 100.7 fL (80.0-100.0); MEAN PLATELET VOLUME 10.8 fL (7.4-10.4); NEUTROPHIL ABS# 1.98 10x3/uL (1.56-6.13); NEUTROPHILS 48.7 % (40-80); PLATELET COUNT 276 10x3/uL (130-400); RBC 2.91 10x6/uL (4.00-5.40); RDW 14.9 % (11.5-14.5); WBC 4.1 10x3/uL (4.8-10.8)
[2020-06-20 05:53] LABS: ALBUMIN 1.8 g/dL (3.4-5.0); BILIRUBIN - TOTAL 2.59 mg/dL (0.2-1.3); CALCIUM 8.6 mg/dL (8.5-10.1); CARBON DIOXIDE 25.1 mmol/L (21.0-32.0); CREATININE - SERUM 1.2 mg/dL (0.6-1.3); PROTEIN - SERUM 4.8 g/dL (6.4-8.2)
[2020-06-20 05:57] LABS: MAGNESIUM - SERUM 1.6 mg/dL (1.8-2.4); POTASSIUM - SERUM 3.1 mmol/L (3.5-5.1)
[2020-06-20 08:08] LABS: ANA REFLEX - DIRECT Negative (Negative)
--- NOTE | 2020-06-20 08:36 | NUR ---
PT C/O MODERATE ABD PAIN 09/29 AND REQUESTING SOMETHING FOR PAIN. DR WALKER CONTACTED AND NOTIFIED AND REC' ORDER FOR MORPHINE 4 MG Q4H PRN. PT UPDATED ON POC AND ADMINISTERING PAIN MED PER ORDER. WILL F/U WITH PAIN.
--- NOTE | 2020-06-20 12:40 | NUR ---
PT REPORTS CONT ABD PAIN AND UNABLE TO EAT R/T PAIN. WILL GIVE PRN PAIN MED AT APPROPRIATE TIME SINCE LAST DOSE. WILL CONT TO MONITOR.
[2020-06-21] VITALS (13 sets, daily range): BP systolic 98–124; BP diastolic 57–88
[2020-06-21 04:10] LABS: BASOPHILS 0.3 % (0-2); EOSINOPHILS 2.1 % (0-7); HEMATOCRIT 26.8 % (36.0-48.0); HEMOGLOBIN 8.6 g/dL (12-16); LYMPHOCYTE ABS# 1.25 10x3/uL (1.18-3.74); LYMPHOCYTES 33.2 % (15-50); MCH 32.6 pg (26.0-34.0); MCHC 32.1 g/dL (31.0-37.0); MCV 101.5 fL (80.0-100.0); MEAN PLATELET VOLUME 10.8 fL (7.4-10.4); MONOCYTES 17.2 % (2-11); NEUTROPHIL ABS# 1.78 10x3/uL (1.56-6.13); NEUTROPHILS 47.2 % (40-80); PLATELET COUNT 308 10x3/uL (130-400); RBC 2.64 10x6/uL (4.00-5.40); RDW 15.2 % (11.5-14.5); WBC 3.8 10x3/uL (4.8-10.8)
[2020-06-21 04:30] LABS: ALBUMIN 1.8 g/dL (3.4-5.0); ANION GAP 10.5 mmol/L (8-16); BILIRUBIN - TOTAL 2.54 mg/dL (0.2-1.3); CALCIUM 8.2 mg/dL (8.5-10.1); CARBON DIOXIDE 27.1 mmol/L (21.0-32.0); MAGNESIUM - SERUM 1.5 mg/dL (1.8-2.4); POTASSIUM - SERUM 3.6 mmol/L (3.5-5.1); PROTEIN - SERUM 4.8 g/dL (6.4-8.2)
--- NOTE | 2020-06-21 08:15 | NUR ---
Nutrition follow-up: Pt is now in ICU due to hypotension Diet order: Regular PO intake decreased due to nausea, vomiting and increased pain Now ~50% of some meals Labs reviewed Pt diruresing Last wt: 204# Will continue to provide food choices and honor food preferences as pt can tolerate. Will offer nutritional supplements. Follow-up: 06/23/20
--- NOTE | 2020-06-21 08:22 | NUR ---
0700 REPORT RECIEVED AND CARE ASSUMED OF PATIENT.. SEE FLOW SHEET FOR SHIFT ASSESMENT FINDINGS.. 0715 DR ROMERO IN TO SEE PATIENT.. 0800 BREAKFAST SERVED AND PATIENT IS FEEDING SELF..
[2020-06-21 09:13] LABS: HEPATITIS C ANTIBODY <0.1 S/CO RAT (0.0-0.9)
--- NOTE | 2020-06-21 10:49 | NUR ---
1030 COMPLETE CHG BATH DONE.. FOEY CATH REMOVED .. ORAL CARE BY PATIENT.. 1050UP TO BSC VOIDING..
--- NOTE | 2020-06-21 12:03 | NUR ---
1200 CONTINUES OOB IN THE CHAIR.. FSBS DONE NO INSULIN COVER.. LUNCH SERVED FEEDING SELF..
[2020-06-22 03:54] LABS: BASOPHILS 0.5 % (0-2); EOSINOPHILS 2.3 % (0-7); HEMATOCRIT 28.1 % (36.0-48.0); HEMOGLOBIN 8.9 g/dL (12-16); IMMATURE GRANULOCYTES 0.3 % (0-5); LYMPHOCYTE ABS# 1.43 10x3/uL (1.18-3.74); LYMPHOCYTES 36.7 % (15-50); MCH 32.6 pg (26.0-34.0); MCHC 31.7 g/dL (31.0-37.0); MCV 102.9 fL (80.0-100.0); MEAN PLATELET VOLUME 10.7 fL (7.4-10.4); MONOCYTES 17.7 % (2-11); NEUTROPHIL ABS# 1.66 10x3/uL (1.56-6.13); NEUTROPHILS 42.5 % (40-80); PLATELET COUNT 365 10x3/uL (130-400); RBC 2.73 10x6/uL (4.00-5.40); RDW 15.6 % (11.5-14.5); WBC 3.9 10x3/uL (4.8-10.8)
[2020-06-22 04:27] LABS: ALBUMIN 1.8 g/dL (3.4-5.0); ALKALINE PHOSPHATASE 269 U/L (30-120); ALT (SGPT) 228 U/L (10-68); BILIRUBIN - TOTAL 2.43 mg/dL (0.2-1.3); CALC OSMOLALITY 269 mosm/kg (275-300); CALCIUM 8.6 mg/dL (8.5-10.1); CARBON DIOXIDE 26.1 mmol/L (21.0-32.0); CHLORIDE - SERUM 103 mmol/L (98-107); CREATININE - SERUM 0.8 mg/dL (0.6-1.3); GLUCOSE 86 mg/dL (74-106); MAGNESIUM - SERUM 1.7 mg/dL (1.8-2.4); POTASSIUM - SERUM 3.7 mmol/L (3.5-5.1); SODIUM 135 mmol/L (136-145); UREA NITROGEN 15 mg/dL (7-18); eGFR NON AFRICAN AMERICAN 78 mL/min (90-120)
[2020-06-22 07:00] VITALS: BP 134/84
[2020-06-22 11:00] VITALS: BP 118/77
[2020-06-22 13:12] LABS: SMOOTH MUSCLE ABS (ACTIN) 3 Units (0-19)
--- NOTE | 2020-06-22 14:33 | NUR ---
PATIENT HAS BEEN UP TO BSC WITH LITTLE ASSISTANCE.PATIENT HAS ATE HER MEALS AND ABLE TO FEED SELF. NO COMPLAINTS AT THIS TIME.
[2020-06-22 15:00] VITALS: BP 123/80
--- NOTE | 2020-06-22 15:23 | NUR ---
PATIENT SAT AT SIDE OF BED BY HERSELF. PATIENT REFUSED TO STAND OR ANY OTHER MOBILITY.
[2020-06-22 19:00] VITALS: BP 120/87
--- NOTE | 2020-06-22 21:15 | NUR ---
PATIENT TRANSFERED TO MED-SURG 2235 VIA WHEELCHAIR. REPORT GIVEN TO RECEIVING NURSE. NO CHANGES IN PATIENT STATUS. ALL BELONGINGS TRANSFERRED WITH PATIENT.
[2020-06-23] VITALS: BP 145/83
[2020-06-23 04:00] VITALS: BP 130/84
--- NOTE | 2020-06-23 06:44 | NUR ---
Patient came from ICU, voiced no concerns, she appeared to rest well through the night. Her FSBS was 99 this morning and did not require insulin.
--- NOTE | 2020-06-23 07:00 | NUR ---
PT IS RETING IN BED WITH EYES OPEN. RESPIRATIONS ARE EVEN AND UNLABORED. PT IS AAO X 4 AND ANSWERS ALL QUESTIONS APPROPRIATLEY. PT DENIES PRESENCE OF PAIN/N/V AT THIS TIME. PT DENIES PRESENCE OF DYSPNEA/SOB AT THIS TIME. PT DENIES PRESENCE OF NUMBNESS/TINGLING TO BUE AND BLE. DETECTIVE CAPTAIN IS ON AND WORKING. PIV TO RIGHT AC INFUSING PER ORDER WITHOUT COMPROMISE. BED IS IN THE LOWEST POSITION. CALL LIGHT AND BEDSIDE TABLE ARE WITHIN REACH. SIDE RAILS X 2. PT DENIES FURTHER NEEDS. WILL CONT TO MONITOR.
[2020-06-23 09:00] VITALS: BP 154/94
[2020-06-23 09:03] LABS: MITOCHONDRIAL ANTIBODY <20.
[2020-06-23 10:40] LABS: HEMATOCRIT 27.6 % (36.0-48.0); LYMPHOCYTE ABS# 1.02 10x3/uL (1.18-3.74); MCH 34.1 pg (26.0-34.0); MCHC 32.6 g/dL (31.0-37.0); MCV 104.5 fL (80.0-100.0); MEAN PLATELET VOLUME 10.6 fL (7.4-10.4); NEUTROPHIL ABS# 1.53 10x3/uL (1.56-6.13); PLATELET COUNT 419 10x3/uL (130-400); RBC 2.64 10x6/uL (4.00-5.40); RDW 15.7 % (11.5-14.5); WBC 3.5 10x3/uL (4.8-10.8)
[2020-06-23 10:49] LABS: ALBUMIN 1.9 g/dL (3.4-5.0); ALKALINE PHOSPHATASE 268 U/L (30-120); ALT (SGPT) 234 U/L (10-68); BILIRUBIN - TOTAL 2.43 mg/dL (0.2-1.3); CALC OSMOLALITY 269 mosm/kg (275-300); CALCIUM 8.6 mg/dL (8.5-10.1); CARBON DIOXIDE 25.1 mmol/L (21.0-32.0); CHLORIDE - SERUM 104 mmol/L (98-107); CREATININE - SERUM 0.8 mg/dL (0.6-1.3); GLUCOSE 95 mg/dL (74-106); POTASSIUM - SERUM 3.9 mmol/L (3.5-5.1); PROTEIN - SERUM 4.7 g/dL (6.4-8.2); SODIUM 135 mmol/L (136-145); UREA NITROGEN 12 mg/dL (7-18); eGFR NON AFRICAN AMERICAN 78 mL/min (90-120)
[2020-06-23 12:56] LABS: EOSINOPHILS 1 % (0-7); LYMPHOCYTES 38 % (15-50); MONOCYTES 16 % (2-11); NEUTROPHILS 45 % (40-80); PLATELET ESTIMATE INCREASED
[2020-06-23 13:17] VITALS: BP 142/89
--- NOTE | 2020-06-23 14:22 | NUR ---
Nutrition follow-up: RD visited with pt during meal rounds. Pt reports appetite is much better today and has eaten almost all of breakfast Labs reviewed WT: 203# +BM Will continue to provide food choices and food preferences Follow-up: 06/28/20
[2020-06-23 16:09] VITALS: BP 139/80
--- NOTE | 2020-06-23 18:34 | NUR ---
PT REPORTS DISCOMFORT AND BURNING TO RIGHT AC PIV. SLIGHT REDNESS NOTED. PIV RESITED TO RIGHT HAND 20 G. PT TOLERATES WELL. BED IS IN THE LOWEST POSITION. CALL LIGHT AND BEDSIDE TABLE ARE WITHIN REACH. SIDE RAILS X 2. PT DENIES FURTHER NEEDS. WILL CONT TO MONITOR.
[2020-06-23 20:00] VITALS: BP 147/94
[2020-06-24] VITALS: BP 164/96
--- NOTE | 2020-06-24 02:21 | NUR ---
Has rested fair this shift. No compalints of chest pain or discomfort voiced. Telemetry shows sinus rhythm. Accu check at 2100 was 116 and did not require sliding scale coverage. Encouraged to call for assistance with ambulation. Call light in easy reach. Safety rounds made
[2020-06-24 04:00] VITALS: BP 140/91
[2020-06-24 05:40] LABS: BASOPHILS 1.9 % (0-2); EOSINOPHILS 1.9 % (0-7); HEMOGLOBIN 8.3 g/dL (12-16); IMMATURE GRANULOCYTES 0.3 % (0-5); LYMPHOCYTE ABS# 1.26 10x3/uL (1.18-3.74); LYMPHOCYTES 34.1 % (15-50); MCH 33.1 pg (26.0-34.0); MCHC 31.9 g/dL (31.0-37.0); MCV 103.6 fL (80.0-100.0); MEAN PLATELET VOLUME 10.7 fL (7.4-10.4); MONOCYTES 19.5 % (2-11); NEUTROPHIL ABS# 1.57 10x3/uL (1.56-6.13); NEUTROPHILS 42.3 % (40-80); PLATELET COUNT 489 10x3/uL (130-400); RBC 2.51 10x6/uL (4.00-5.40); RDW 15.9 % (11.5-14.5); WBC 3.7 10x3/uL (4.8-10.8)
[2020-06-24 06:05] LABS: ALBUMIN 1.7 g/dL (3.4-5.0); BILIRUBIN - TOTAL 1.96 mg/dL (0.2-1.3); CALCIUM 8.5 mg/dL (8.5-10.1); CARBON DIOXIDE 23.6 mmol/L (21.0-32.0); CREATININE - SERUM 0.9 mg/dL (0.6-1.3); POTASSIUM - SERUM 3.6 mmol/L (3.5-5.1); PROTEIN - SERUM 4.6 g/dL (6.4-8.2)
--- NOTE | 2020-06-24 07:20 | NUR ---
REC'D IN BED WITH EYES CLOSED EASILY TO AROUSED WHEN NAME IS CALLED. RESP EVEN AND UNLABORD WWIH NO DISTRESS NOTED. CAN EXPRESS NEEDS AND WANTS. NO C/O NOTED OR VOICED. ASSESSSMENT COMPLETED. C/L IN REACH AT BEDSIDE.
[2020-06-24 08:15] VITALS: BP 155/90
--- NOTE | 2020-06-24 13:02 | NUR ---
I have reviewed this patient and I concur with the Shift Assessment completed by the Licensed Practical Nurse today this shift.
[2020-06-24] MEDS ORDERED: CARAFATE1 G PO (13:14)
[2020-06-24] MEDS ORDERED: ZYVOX600 MG PO (13:14)
[2020-06-24] MEDS ORDERED: PROTONIX40 MG PO (13:14)
[2020-06-24] MEDS ORDERED: OMNICEF300 MG PO (13:14)
[2020-06-24 13:27] VITALS: BP 160/95
--- NOTE | 2020-06-24 13:28 | NUR ---
PATIENT WALKED 80 FEET WITH CGA.
--- NOTE | 2020-06-24 15:33 | NUR ---
DC HOME AT THIS TIME WITH ALL PERSONAL BELONGING. VOICED UNDERSTANDING OF DC ORDERS. STABLE CONDITION UPON DEPARTURE.
== END 2020-06-24 15:34 | disposition home or self-care (01) | DRG 682 ==
LOC: D.ER 13:23 → D.EDHOLD 16:12 → D.ICU 16:12 → D.MS 16:12 → D.ICU 06-18 15:53 → D.MS 06-22 21:56
PROVIDERS: Family Medicine; Internal Medicine Gastroenterology; Internal Medicine Nephrology; ADMIT Emergency Medicine; ATTEND Emergency Medicine
DX: N17.9 Acute kidney failure, unspecified (principal); E43 Unspecified severe protein-calorie malnutrition; E87.1 Hypo-osmolality and hyponatremia; N39.0 Urinary tract infection, site not specified; E87.6 Hypokalemia; E78.5 Hyperlipidemia, unspecified; K21.9 Gastro-esophageal reflux disease without esophagitis; F10.20 Alcohol dependence, uncomplicated; R74.01 Elevation of levels of liver transaminase levels; E80.6 Other disorders of bilirubin metabolism; G62.9 Polyneuropathy, unspecified; N18.9 Chronic kidney disease, unspecified; I12.9 Hypertensive chronic kidney disease with stage 1 through stage 4 chronic kidney disease, or unspecified chronic kidney disease; Z68.38 Body mass index [BMI] 38.0-38.9, adult

== ENCOUNTER 2020-08-07 16:35 | Inpatient (IN) | payer MEDICAID ==
[~2020-08-07] VITALS: Ht 162.6 cm; Wt 113.6 kg
[~2020-08-07 16:35] MED LIST changes: +CARAFATE1 G PO; +CENTRUM SILVER1 EAC3 PO; +LOW DOSE ASPIRI81 M1 PO; +OMNICEF300 MG PO; +ZOCOR20 MG; +ZYVOX600 MG PO
--- NOTE | 2020-08-07 16:50 | NUR ---
AFTER COMPLETING TRIAGE, PATIENT STATES THAT SHE IS ALSO HAVING MUSCLE WEAKNESS, AND HALLUCINATIONS.
[2020-08-07 16:52] VITALS: BP 182/104
[2020-08-07 17:23] LABS: BASOPHILS 0.6 % (0-2); EOSINOPHILS 2.5 % (0-7); HEMATOCRIT 33.9 % (36.0-48.0); HEMOGLOBIN 11.1 g/dL (12-16); IMMATURE GRANULOCYTES 0.2 % (0-5); LYMPHOCYTES 33.3 % (15-50); MCHC 32.7 g/dL (31.0-37.0); MCV 97.7 fL (80.0-100.0); MEAN PLATELET VOLUME 10.4 fL (7.4-10.4); MONOCYTES 22.2 % (2-11); NEUTROPHILS 41.2 % (40-80); RBC 3.47 10x6/uL (4.00-5.40); RDW 13.8 % (11.5-14.5); WBC 5.1 10x3/uL (4.8-10.8)
[2020-08-07 17:25] LABS: PLATELET COUNT 275 10x3/uL (130-400)
[2020-08-07 17:36] LABS: NITRITE NEGATIVE (NEGATIVE)
[2020-08-07 17:37] LABS: BILIRUBIN NEGATIVE (NEGATIVE); KETONE 1+ mg/dL (NEGATIVE); UROBILINOGEN NORMAL mg/dL (< 2)
[2020-08-07 17:38] LABS: ALBUMIN 3.3 g/dL (3.4-5.0); ANION GAP 12.7 mmol/L (8-16); BILIRUBIN - TOTAL 0.67 mg/dL (0.2-1.3); CALCIUM 8.9 mg/dL (8.5-10.1); CARBON DIOXIDE 28.8 mmol/L (21.0-32.0)
[2020-08-07 17:46] LABS: UDS - AMPHET NEGATIVE QUAL (NEGATIVE); UDS - BARB NEGATIVE QUAL (NEGATIVE); UDS - BENZO POSITIVE QUAL (NEGATIVE); UDS - COCAINE NEGATIVE QUAL (NEGATIVE); UDS - OPIATE NEGATIVE QUAL (NEGATIVE); UDS - PCP NEGATIVE QUAL (NEGATIVE); UDS - THC NEGATIVE QUAL (NEGATIVE)
[2020-08-07 17:46] LABS: POTASSIUM - SERUM 2.5 mmol/L (3.5-5.1)
[2020-08-07 19:00] VITALS: BP 135/78
[2020-08-07 20:00] VITALS: BP 119/76
[2020-08-07 21:00] VITALS: BP 142/92
[2020-08-07 22:00] VITALS: BP 150/99
[2020-08-08] VITALS (7 sets, daily range): BP systolic 116–166; BP diastolic 55–929; Ht 162.6 cm; Wt 113.6 kg
--- NOTE | 2020-08-08 04:57 | NUR ---
PATIENT IN ER 12 FOR FALLING AND HITTING HER HEAD, WAS REPORTED THAT SHE HAS A HISTORY OF SUICIDE THOUGHTS BUT AT THIS TIME SHE IS DENYING IT AND SAYS SHE DOESN'T REMEMBER EVER TRYING TO HARM HERSELF. SHE CURRENTLY IS NOT SUICIDIAL. 1-800 NUMBER GIVEN FOR FUTURE REFERENCE.
[2020-08-08 08:34] LABS: HEMATOCRIT 30.9 % (36.0-48.0); HEMOGLOBIN 10.1 g/dL (12-16); LYMPHOCYTE ABS# 2.02 10x3/uL (1.18-3.74); MCH 32.1 pg (26.0-34.0); MCHC 32.7 g/dL (31.0-37.0); MCV 98.1 fL (80.0-100.0); MEAN PLATELET VOLUME 10.1 fL (7.4-10.4); NEUTROPHIL ABS# 1.26 10x3/uL (1.56-6.13); PLATELET COUNT 287 10x3/uL (130-400); RBC 3.15 10x6/uL (4.00-5.40); WBC 4.4 10x3/uL (4.8-10.8)
[2020-08-08 08:46] LABS: ALBUMIN 2.8 g/dL (3.4-5.0); ALKALINE PHOSPHATASE 108 U/L (30-120); ALT (SGPT) 64 U/L (10-68); BILIRUBIN - TOTAL 0.53 mg/dL (0.2-1.3); CALC OSMOLALITY 272 mosm/kg (275-300); CALCIUM 8.6 mg/dL (8.5-10.1); CARBON DIOXIDE 26.9 mmol/L (21.0-32.0); CHLORIDE - SERUM 100 mmol/L (98-107); CREATININE - SERUM 0.8 mg/dL (0.6-1.3); GLUCOSE 110 mg/dL (74-106); MAGNESIUM - SERUM 2.7 mg/dL (1.8-2.4); PHOSPHOROUS 2.5 mg/dL (2.5-4.9); PROTEIN - SERUM 6.1 g/dL (6.4-8.2); SODIUM 136 mmol/L (136-145); THYROID STIMULATING HORMONE 2.92 uIU/mL (0.36-3.74); UREA NITROGEN 12 mg/dL (7-18); eGFR NON AFRICAN AMERICAN 77 mL/min (90-120)
[2020-08-08 08:48] LABS: POTASSIUM - SERUM 3.1 mmol/L (3.5-5.1)
--- NOTE | 2020-08-08 09:54 | MORECARE ---
CASE MANAGEMENT DISCHARGE SUMMARY PATIENT: TASH JEONG UNIT: [id number] ADM DATE: 08/07/20 AGE: 60 : 60 SEX: F ROOM/BED: D.E12 AUTHOR: DANI,DOC PHYSICIAN: REFERRING PHYSICIAN: SAJAN WALKER MD DATE OF SERVICE: 08/08/20 Case Management Discharge Planning Summary COMMENTS ENTERED DATE: 08/08/20 9:51 CT COMMENT TYPE: Discharge Planning REVIEWER: Tiana Courtney CM called [facility] to request copy of discharge medication list from last hospital discharge. CM faxed written request for records as instructed. Awaiting response to request. DCP REVIEW SUMMARY ANTICIPATED D/C DATE: EXPECTED LOS : CASE STATUS: DCP Initiated INITIAL REVIEW: 08/08/2020 INITIAL REVIEWER: Tiana Courtney FINAL DISCHARGE DISPOSITION: : FINAL REVIEWER: FINAL REVIEW DATE: DCP Focus Questions & Answers QUESTION: ANSWER : PATIENT: TASH JEONG ENCOUNTER: [id number] MEDICAL RECORD#: [id number] ADMISSION DATE: 08/07/2020 DISCHARGE DATE: ATTENDING MD: SAJAN HERCULES : AGE: 60 MARITAL STATUS: D DC PLAN ID: [id number] FACILITY: [facility] PRINTED ON: 08/08/20 9:53 CT All edits/amendments must be made on the electronic document DICTATION DATE: 08/08/20952 ROOFING MACHINE OPERATOR: SONAL 08/08/20952 RPT#: [id number] DC DATE: STATUS: ADM IN [facility] [address] [place] [address] END OF REPORT
--- NOTE | 2020-08-08 12:07 | MORECARE ---
CASE MANAGEMENT DISCHARGE SUMMARY PATIENT: TASH JEONG UNIT: [id number] ADM DATE: 08/07/20 AGE: 60 : 60 SEX: F ROOM/BED: D.[facility]3 AUTHOR: DANI,DOC PHYSICIAN: REFERRING PHYSICIAN: SAJAN WALKER MD DATE OF SERVICE: 08/08/20 Case Management Discharge Planning Summary COMMENTS ENTERED DATE: 08/08/20 12:05 CT COMMENT TYPE: Discharge Planning REVIEWER: Tiana Courtney CM obtained faxed DC med list from [facility]. Gave copy of med list to ER nurse, Rhonda. ENTERED DATE: 08/08/20 9:51 CT COMMENT TYPE: Discharge Planning REVIEWER: Tiana Courtney CM called [facility] to request copy of discharge medication list from last hospital discharge. CM faxed written request for records as instructed. Awaiting response to request. DCP REVIEW SUMMARY ANTICIPATED D/C DATE: EXPECTED LOS : CASE STATUS: DCP Initiated INITIAL REVIEW: 08/08/2020 INITIAL REVIEWER: Tiana Courtney FINAL DISCHARGE DISPOSITION: : FINAL REVIEWER: FINAL REVIEW DATE: DCP Focus Questions & Answers QUESTION: ANSWER : PATIENT: TASH JEONG ENCOUNTER: [id number] MEDICAL RECORD#: [id number] ADMISSION DATE: 08/07/2020 DISCHARGE DATE: ATTENDING MD: SAJAN HECRULES : AGE: 60 MARITAL STATUS: D DC PLAN ID: [id number] FACILITY: [facility] PRINTED ON: 08/08/20 12:07 CT All edits/amendments must be made on the electronic document DICTATION DATE: 08/08/201206 ACCOUNT AUDITOR: SONAL 08/08/201206 RPT#: [id number] DC DATE: STATUS: ADM IN [facility] [address] [place] [address] END OF REPORT
[2020-08-08 13:12] LABS: ANISOCYTOSIS OCC; EOSINOPHILS 4 % (0-7); LYMPHOCYTES 36 % (15-50); MONOCYTES 16 % (2-11); NEUTROPHILS 42 % (40-80); PLATELET ESTIMATE NORMAL
--- NOTE | 2020-08-08 13:35 | NUR ---
PATIENT'S POTASSIUM 3.1 AFTER BEING TREATED IN ER. ADDED MAGNESIUM DRAW TO PREVIOUS LABS.
[2020-08-08] MEDS ORDERED: SYNTHROID50 MCG PO (13:40)
[2020-08-08] MEDS ORDERED: INVEGA 3 MG ER T3 MG PO (13:41)
[2020-08-08] MEDS ORDERED: NAPROSYN500 MG PO (13:42)
[2020-08-08] MEDS ORDERED: ULTRAM50 MG PO (13:43)
[2020-08-08] MEDS ORDERED: IMIPRAMINE10 MG PO (13:54)
--- NOTE | 2020-08-08 15:53 | NUR ---
NEW IV SITED TO RIGHT WRIST AFTER ONE ATTEMPT WITH 22 GAUGE D/T IV IN LEFT HAND BEEPING OCCLUDING WHEN PATIENT USING HAND AND PATIENT REQUESTING NEW IV.
--- NOTE | 2020-08-08 17:57 | NUR ---
SCDS PLACED ON PATIENT. EDUCATION PROVIDED.
--- NOTE | 2020-08-08 19:45 | NUR ---
RECEIVED BEDSIDE REPORT. PT LAYING IN BED A&O X4. PIV TO RIGHT WRIST PATENT AND INFUSING, NO REDNESS OR SWELLING. BRUISES TO LEFT FLANK AND LEFT LOWER BACK. LACERATION TO POSTERIOR HEAD, JOEY INTACT. PT ABLE TO AMBULATE WITH ASSIST. EDUCATED ON CL AND NEEDS, VERBALIZED UNDERSTANDING. BED LOW, ALARM ON, CL IN REACH.
[2020-08-09 04:00] VITALS: BP 142/85
[2020-08-09 06:33] LABS: ALBUMIN 2.4 g/dL (3.4-5.0); ANION GAP 13.4 mmol/L (8-16); BILIRUBIN - TOTAL 0.44 mg/dL (0.2-1.3); CALCIUM 8.4 mg/dL (8.5-10.1); CARBON DIOXIDE 24.8 mmol/L (21.0-32.0); CREATININE - SERUM 0.9 mg/dL (0.6-1.3); MAGNESIUM - SERUM 2.1 mg/dL (1.8-2.4); PHOSPHOROUS 2.5 mg/dL (2.5-4.9); POTASSIUM - SERUM 3.2 mmol/L (3.5-5.1); PROTEIN - SERUM 5.3 g/dL (6.4-8.2)
[2020-08-09 07:09] LABS: BASOPHILS 0.2 % (0-2); EOSINOPHILS 4.1 % (0-7); HEMATOCRIT 28.7 % (36.0-48.0); HEMOGLOBIN 9.2 g/dL (12-16); IMMATURE GRANULOCYTES 0.4 % (0-5); LYMPHOCYTES 46.7 % (15-50); MCH 31.8 pg (26.0-34.0); MCHC 32.1 g/dL (31.0-37.0); MCV 99.3 fL (80.0-100.0); MEAN PLATELET VOLUME 10.6 fL (7.4-10.4); MONOCYTES 25.1 % (2-11); NEUTROPHIL ABS# 1.21 10x3/uL (1.56-6.13); NEUTROPHILS 23.5 % (40-80); PLATELET COUNT 329 10x3/uL (130-400); RBC 2.89 10x6/uL (4.00-5.40); RDW 14.3 % (11.5-14.5); WBC 5.1 10x3/uL (4.8-10.8)
--- NOTE | 2020-08-09 08:00 | NUR ---
PATIENT IN BED WITH EYES CLOSED RESTING QUIETLY. IV INTACT. CALL LIGHT WITHIN REACH.
[2020-08-09 08:52] VITALS: BP 148/84
[2020-08-09 10:10] LABS: % SATURATION 46 % (15-55); IRON 87 ug/dl (35-150); TOTAL IRON BIND CAPACITY 186 ug/dl (260-445); UNSAT IRON BIND CAPACITY 99 ug/dl (150-375)
--- NOTE | 2020-08-09 12:34 | MORECARE ---
CASE MANAGEMENT DISCHARGE SUMMARY PATIENT: TASH JEONG UNIT: [id number] ADM DATE: 08/07/20 AGE: 60 : 60 SEX: F ROOM/BED: D.[facility] AUTHOR: DANI,DOC PHYSICIAN: REFERRING PHYSICIAN: SAJAN WALKER MD DATE OF SERVICE: 08/09/20 Case Management Discharge Planning Summary COMMENTS ENTERED DATE: 08/08/20 12:05 CT COMMENT TYPE: Discharge Planning REVIEWER: Tiana Courtney CM obtained faxed DC med list from [facility]. Gave copy of med list to ER nurse, Rhonda. ENTERED DATE: 08/08/20 9:51 CT COMMENT TYPE: Discharge Planning REVIEWER: Tiana Courtney CM called [facility] to request copy of discharge medication list from last hospital discharge. CM faxed written request for records as instructed. Awaiting response to request. DCP REVIEW SUMMARY ANTICIPATED D/C DATE: EXPECTED LOS : CASE STATUS: DCP Initiated INITIAL REVIEW: 08/08/2020 INITIAL REVIEWER: Tiana Courtney FINAL DISCHARGE DISPOSITION: : FINAL REVIEWER: FINAL REVIEW DATE: DCP Focus Questions & Answers QUESTION: ANSWER : PATIENT: TASH JEONG ENCOUNTER: [id number] MEDICAL RECORD#: [id number] ADMISSION DATE: 08/07/2020 DISCHARGE DATE: ATTENDING MD: SAJAN HERCULES : AGE: 60 MARITAL STATUS: D DC PLAN ID: [id number] FACILITY: [facility] PRINTED ON: 08/09/20 12:34 CT All edits/amendments must be made on the electronic document DICTATION DATE: 08/09/20 1234 VENIPUNCTURIST: SONAL 08/09/20 1234 RPT#: [id number] DC DATE: STATUS: ADM IN [facility] [address] [place] [address] END OF REPORT
[2020-08-09 13:07] VITALS: BP 146/75
--- NOTE | 2020-08-09 13:31 | NUR ---
GT BELT, PATIENT ABLE TO GET TO BEDSIDE AND STAND WITH CGA. PATIENT WALKED IN [place] FOR 60 FEET USING WALKER WITH MIN ASST.
[2020-08-09 16:53] VITALS: BP 142/80
--- NOTE | 2020-08-09 18:45 | NUR ---
PATIENT IN BED WITH IV INTACT. NO COMPLAINTS OR SIGNS OF DISTRESS. CALL LIGHT WITHIN REACH. FAMILY AT BEDSIDE.
[2020-08-09 20:00] VITALS: BP 149/95
--- NOTE | 2020-08-10 01:02 | NUR ---
THIS NURSE ANSWERED CALL LIGHT. FAMILY MEMBER AT BEDSIDE APPEARS INTOXICATED. ASKING QUESTIONS ABOUT PT HEALTH AND IF A DOCTOR IS AVAILABLE, STOPPING MID SENTENCE, CLOSING EYES AND DOZING OFF. I ASKED IF HE HAD BEEN DRINKING THIS EVENING AND HE DENIES THIS. I EDUCATED PT AND FAMILY THAT THE DR WOULD ROUND IN THE MORNING AND COULD GIVE MORE INFORMATION THEN THE PRIMARY NURSE, SINCE HE DOESNT SEEM TO UNDERSTAND WHAT THE NURSE IS EXPLAINING TO HIM. PT SHOWS NO S/S OF DISTRESS. BED LOW, ALARM ON, CL IN REACH.
[2020-08-10 04:00] VITALS: BP 154/100
--- NOTE | 2020-08-10 04:33 | NUR ---
PATIENT HAD PAIN MANAGED WITH THE PRESCRIBED PAIN MEDICATION, SHE RESTED WELL, SHE IS CURRENTLY RESTING IN BED WITH HER EYES CLOSED.
[2020-08-10 07:13] LABS: HEMATOCRIT 28.5 % (36.0-48.0); HEMOGLOBIN 8.9 g/dL (12-16); LYMPHOCYTE ABS# 2.59 10x3/uL (1.18-3.74); MCH 31.6 pg (26.0-34.0); MCHC 31.2 g/dL (31.0-37.0); MCV 101.1 fL (80.0-100.0); MEAN PLATELET VOLUME 10.3 fL (7.4-10.4); NEUTROPHIL ABS# 1.64 10x3/uL (1.56-6.13); PLATELET COUNT 382 10x3/uL (130-400); RBC 2.82 10x6/uL (4.00-5.40); RDW 14.2 % (11.5-14.5); WBC 5.7 10x3/uL (4.8-10.8)
[2020-08-10 07:36] LABS: ALBUMIN 2.3 g/dL (3.4-5.0); ALKALINE PHOSPHATASE 95 U/L (30-120); ALT (SGPT) 41 U/L (10-68); BILIRUBIN - TOTAL 0.34 mg/dL (0.2-1.3); CALC OSMOLALITY 277 mosm/kg (275-300); CALCIUM 8.2 mg/dL (8.5-10.1); CARBON DIOXIDE 24.2 mmol/L (21.0-32.0); CHLORIDE - SERUM 107 mmol/L (98-107); CREATININE - SERUM 0.8 mg/dL (0.6-1.3); GLUCOSE 85 mg/dL (74-106); MAGNESIUM - SERUM 2.3 mg/dL (1.8-2.4); PHOSPHOROUS 2.4 mg/dL (2.5-4.9); POTASSIUM - SERUM 3.7 mmol/L (3.5-5.1); PROTEIN - SERUM 5.2 g/dL (6.4-8.2); SODIUM 139 mmol/L (136-145); UREA NITROGEN 15 mg/dL (7-18); eGFR NON AFRICAN AMERICAN 77 mL/min (90-120)
--- NOTE | 2020-08-10 07:46 | NUR ---
ALERT AND ORIENTED. ASSESSMENT COMPLETE. DENIES NEEDS. BED LOW. CALL ORDONEZ AND PERSONAL ITEMS IN REACH. WILL CONTINUE TO MONITOR.
[2020-08-10 08:29] VITALS: BP 154/92
[2020-08-10 12:04] VITALS: BP 149/75
[2020-08-10 14:03] LABS: ANISOCYTOSIS OCC; EOSINOPHILS 6 % (0-7); LYMPHOCYTES 35 % (15-50); MONOCYTES 23 % (2-11); NEUTROPHILS 34 % (40-80); PLATELET ESTIMATE NORMAL
[2020-08-10 17:50] VITALS: BP 177/103
--- NOTE | 2020-08-10 18:01 | NUR ---
OT NOTE: PT COMPLETED BED MOB WITH CGA-MIN A. PT COMPLETED EOB SITTING WITH SBA-CGA. PT COMPLETED UB HYGIENE TASKS WITH SETUP. [phone] MAX [place] C[place]
[2020-08-10 20:00] VITALS: BP 140/84
[2020-08-11] VITALS: BP 124/68
--- NOTE | 2020-08-11 03:36 | NUR ---
PATIENT HAS HAD PAIN MANAGED WITH THE PRESCRIBED PAIN MEDICATION, SHE APPEARS TO BE RESTING WELL, SHE IS CURRENTLY RESTING IN BED WITH HER EYES CLOSED.
[2020-08-11 04:00] VITALS: BP 156/88
[2020-08-11 06:29] LABS: ALBUMIN 2.3 g/dL (3.4-5.0); ALKALINE PHOSPHATASE 92 U/L (30-120); ALT (SGPT) 35 U/L (10-68); BASOPHILS 0.6 % (0-2); BILIRUBIN - TOTAL 0.29 mg/dL (0.2-1.3); CALC OSMOLALITY 279 mosm/kg (275-300); CALCIUM 8.6 mg/dL (8.5-10.1); CARBON DIOXIDE 26.1 mmol/L (21.0-32.0); CHLORIDE - SERUM 107 mmol/L (98-107); CREATININE - SERUM 0.8 mg/dL (0.6-1.3); EOSINOPHILS 2.4 % (0-7); GLUCOSE 96 mg/dL (74-106); HEMATOCRIT 29.4 % (36.0-48.0); HEMOGLOBIN 9.3 g/dL (12-16); IMMATURE GRANULOCYTES 0.2 % (0-5); LYMPHOCYTE ABS# 2.44 10x3/uL (1.18-3.74); LYMPHOCYTES 44.9 % (15-50); MCH 31.7 pg (26.0-34.0); MCHC 31.6 g/dL (31.0-37.0); MCV 100.3 fL (80.0-100.0); MEAN PLATELET VOLUME 10.2 fL (7.4-10.4); MONOCYTES 20.6 % (2-11); NEUTROPHIL ABS# 1.71 10x3/uL (1.56-6.13); NEUTROPHILS 31.3 % (40-80); PLATELET COUNT 450 10x3/uL (130-400); POTASSIUM - SERUM 3.8 mmol/L (3.5-5.1); PROTEIN - SERUM 5.2 g/dL (6.4-8.2); RBC 2.93 10x6/uL (4.00-5.40); RDW 14.3 % (11.5-14.5); SODIUM 139 mmol/L (136-145); UREA NITROGEN 17 mg/dL (7-18); WBC 5.4 10x3/uL (4.8-10.8); eGFR NON AFRICAN AMERICAN 77 mL/min (90-120)
[2020-08-11 06:30] LABS: MAGNESIUM - SERUM 1.7 mg/dL (1.8-2.4)
--- NOTE | 2020-08-11 07:00 | NUR ---
PT IS RESTING IN BED WITH EYES OPEN. RESPIRATIONS ARE EVEN AND UNLABORED. PT IS AAO X 4 AND ANSWERS QUESTIONS APPROPRIATELY. PT FAMILY MEMBER AT BEDSIDE. LACERATION WITH JOEY NOTED TO BACK OF HEAD. PT DENIES PRESENCE OF PAIN/N/V AT THIS TIME. PT DENIES PRESENCE OF DYSPNEA/SOB AT THIS TIME. BED ALARM IS ON AND WORKING. FALL PRECAUTIONS IN PALCE. BED IS IN THE LOWEST POSITION. CALL LIGHT AND BEDSIDE TABLE ARE WITHIN REACH. SIDE RAILS X 2. ROOM CLOSE TO NRUSE STATION. PT AND PT FAMILY MEMBER DENY FURTHER NEEDS. WILL CONT TO MONITOR.
[2020-08-11 08:07] VITALS: BP 170/102
--- NOTE | 2020-08-11 08:53 | NUR ---
REHAB PRESCREEN RECEIVED. UNFORTUNATELY PATIENT HAS MEDICAID AND WE WILL NOT BE ABLE TO BRING HER INTO REHAB. I HAVE LEFT A MESSAGE ON MORRIS STEWART RN CM'S VOICEMAIL. THANK YOU FOR THE REFERRAL. BOB MALDONADO RN CLINICAL LIAISON, INPATIENT REHAB.
[2020-08-11 12:46] VITALS: BP 172/89
--- NOTE | 2020-08-11 15:00 | MORECARE ---
CASE MANAGEMENT DISCHARGE SUMMARY PATIENT: TASH JEONG UNIT: [id number] ADM DATE: 08/07/20 AGE: 60 : 60 SEX: F ROOM/BED: D.2223 AUTHOR: DANI,DOC PHYSICIAN: REFERRING PHYSICIAN: SAJAN WALKER MD DATE OF SERVICE: 08/11/20 Case Management Discharge Planning Summary COMMENTS ENTERED DATE: 08/11/20 14:54 CT COMMENT TYPE: Discharge Planning REVIEWER: Dede Johnson CM met with patient at bedside after obtaining verbal consent. CM discussed availability / needs of home health, REHAB and medical equipment. Patient would like Home Health, verbalized choice of care 4 home health. Son at bedside. I am sending alcohol rehab information with her and care 4 home health to see. CM to follow and assist as needed. ENTERED DATE: 08/08/20 12:05 CT COMMENT TYPE: Discharge Planning REVIEWER: Tiana Courtney CM obtained faxed DC med list from [facility]. Gave copy of med list to ER nurse, Rhonda. ENTERED DATE: 08/08/20 9:51 CT COMMENT TYPE: Discharge Planning REVIEWER: Tiana Courtney CM called [facility] to request copy of discharge medication list from last hospital discharge. CM faxed written request for records as instructed. Awaiting response to request. DCP REVIEW SUMMARY ANTICIPATED D/C DATE: EXPECTED LOS : CASE STATUS: DCP Initiated INITIAL REVIEW: 08/08/2020 INITIAL REVIEWER: Tiana Courtney FINAL DISCHARGE DISPOSITION: : FINAL REVIEWER: FINAL REVIEW DATE: DCP Focus Questions & Answers DCP Screen QUESTION: ANSWER High Risk Factors: : Poor health literacy DCP Evaluation QUESTION: ANSWER Patient gives permission to discuss discharge plans with: (name, relationship and number) : SIRENA GILMAN Patient's ability to cope with chronic illness : c. Inadequate (3+ ED visits in 6 mos., readmits within 30 days, 2+ hospital admissions in 1 yr.) Family / Caregiver's ability to cope with chronic illness: : c. Inadequate (Enables pt. to make bad choices, cannot meet pt's. needs, difficult family dynamics) Physical Status: : Independent with ADL's Living Arrangements: : Home Alone with Support Baseline cognitive status: : *Oriented to person, place, situation, time and present Pharmacy name(s): : [facility] Would patient like to participate in any Care Coordination programs (if applicable): : Not applicable Equipment in use: : Walker - [employer] Mental health screen: : No mental health history DCP Re-evaluation QUESTION: ANSWER Would patient like to participate in any Care Coordination programs (if applicable): : Not applicable PATIENT: TASH JEONG ENCOUNTER: [id number] MEDICAL RECORD#: [id number] ADMISSION DATE: 08/07/2020 DISCHARGE DATE: ATTENDING MD: SAJAN HERCULES : AGE: 60 MARITAL STATUS: D DC PLAN ID: [id number] FACILITY: [facility] PRINTED ON: 08/11/20 15:00 CT All edits/amendments must be made on the electronic document DICTATION DATE: 08/11/201499 CLERK OPERATOR: SONAL 08/11/20 1500 RPT#: [id number] DC DATE: STATUS: ADM IN [facility] [address] [place] [address] END OF REPORT
--- NOTE | 2020-08-11 15:20 | NUR ---
ALL DISCHARGE INSTRUCTIONS COVERED WRITTEN AND VERBAL. PIV TO RIGHT WRIST REMOVED WITH CATHETER TIP INTACT. DRESSING APPLIED. PIV REMOVED FROM LEFT FA WITH CATHETER TIP INTACT. DRESSING APPLIED. ALL DISCHARGE PAPERS SIGNED BY PT. PT TO NOTIFY NURSE WHEN READY FOR TRANSPORT OUT OF ROOM. AT BEDSIDE ASSISTING WITH PT DRESSING.
--- NOTE | 2020-08-11 15:22 | NUR ---
GT BELT, PATIENT MIN ASST TO GET UP TO BEDSIDE AND STAND WITH CGA. PATIENT WALKED IN [place] FOR 130 FEET WITH MIN ASST USING WALKER.
--- NOTE | 2020-08-11 15:46 | NUR ---
PT TRANSPORTED OFF OF FLOOR VIA WHEELCHAIR ESCORTED BY HOSPITAL TRANSPORT. PT THANKS THIS NURSE FOR CARE GIVEN DURING THIS SHIFT AND STATES THAT SHE DOES HAVE ALL PERSONAL BELONINGS WITH HER. PT DENIES QUESTIONS/NEEDS/CONCERNS.
--- NOTE | 2020-08-11 16:08 | MORECARE ---
CASE MANAGEMENT DISCHARGE SUMMARY PATIENT: TASH JEONG UNIT: [id number] ADM DATE: 08/07/20 AGE: 60 : 60 SEX: F ROOM/BED: D.2223 AUTHOR: DANI,DOC PHYSICIAN: REFERRING PHYSICIAN: SAJAN WALKER MD DATE OF SERVICE: 08/11/20 Case Management Discharge Planning Summary COMMENTS ENTERED DATE: 08/11/20 14:54 CT COMMENT TYPE: Discharge Planning REVIEWER: Dede Johnson CM met with patient at bedside after obtaining verbal consent. CM discussed availability / needs of home health, REHAB and medical equipment. Patient would like Home Health, verbalized choice of care 4 home health. Son at bedside. I am sending alcohol rehab information with her and care 4 home health to see. CM to follow and assist as needed. ENTERED DATE: 08/08/20 12:05 CT COMMENT TYPE: Discharge Planning REVIEWER: Tiana Courtney CM obtained faxed DC med list from [facility]. Gave copy of med list to ER nurse, Rhonda. ENTERED DATE: 08/08/20 9:51 CT COMMENT TYPE: Discharge Planning REVIEWER: Tiana Courtney CM called [facility] to request copy of discharge medication list from last hospital discharge. CM faxed written request for records as instructed. Awaiting response to request. DCP REVIEW SUMMARY ANTICIPATED D/C DATE: EXPECTED LOS : CASE STATUS: DCP Initiated INITIAL REVIEW: 08/08/2020 INITIAL REVIEWER: Tiana Courtney FINAL DISCHARGE DISPOSITION: : FINAL REVIEWER: FINAL REVIEW DATE: DCP Focus Questions & Answers DCP Screen QUESTION: ANSWER High Risk Factors: : Poor health literacy DCP Evaluation QUESTION: ANSWER Patient gives permission to discuss discharge plans with: (name, relationship and number) : SIRENA GILMAN Patient's ability to cope with chronic illness : c. Inadequate (3+ ED visits in 6 mos., readmits within 30 days, 2+ hospital admissions in 1 yr.) Family / Caregiver's ability to cope with chronic illness: : c. Inadequate (Enables pt. to make bad choices, cannot meet pt's. needs, difficult family dynamics) Physical Status: : Independent with ADL's Living Arrangements: : Home Alone with Support Baseline cognitive status: : *Oriented to person, place, situation, time and present Pharmacy name(s): : [facility] Would patient like to participate in any Care Coordination programs (if applicable): : Not applicable Equipment in use: : Walker - [employer] Mental health screen: : No mental health history DCP Re-evaluation QUESTION: ANSWER Would patient like to participate in any Care Coordination programs (if applicable): : Not applicable PATIENT: TASH JEONG ENCOUNTER: [id number] MEDICAL RECORD#: [id number] ADMISSION DATE: 08/07/2020 DISCHARGE DATE: 08/11/2020 ATTENDING MD: SAJAN HERCULES : AGE: 60 MARITAL STATUS: D DC PLAN ID: [id number] FACILITY: [facility] PRINTED ON: 08/11/20 16:08 CT All edits/amendments must be made on the electronic document DICTATION DATE: 08/11/201607 FERRYBOAT HELPER: SONAL 08/11/201607 RPT#: [id number] DC DATE:08/11/20 STATUS: DIS IN [facility] [address] [place] [address] END OF REPORT
--- NOTE | 2020-08-11 16:32 | NUR ---
OT NOTE: PT COMPLETED SUPINE TO SIT WITH CGA. PT COMPLETED EOB SITTING WITH MOD I. PT COMPLETED FACE HYGIENE WITH SETUP. PT COMPLETED HAIR GROOMING TOLERATED WITH SETUP. [phone] THANK YOU,BRIA NUGENT
--- NOTE | 2020-08-15 10:02 | MORECARE ---
CASE MANAGEMENT DISCHARGE SUMMARY PATIENT: TASH JEONG UNIT: [id number] ADM DATE: 08/07/20 AGE: 60 : 60 SEX: F ROOM/BED: D.2223 AUTHOR: DANI,DOC PHYSICIAN: REFERRING PHYSICIAN: SAJAN WALKER MD DATE OF SERVICE: 08/15/20 Case Management Discharge Planning Summary COMMENTS ENTERED DATE: 08/11/20 14:54 CT COMMENT TYPE: Discharge Planning REVIEWER: Dede Johnson CM met with patient at bedside after obtaining verbal consent. CM discussed availability / needs of home health, REHAB and medical equipment. Patient would like Home Health, verbalized choice of care 4 home health. Son at bedside. I am sending alcohol rehab information with her and care 4 home health to see. CM to follow and assist as needed. ENTERED DATE: 08/08/20 12:05 CT COMMENT TYPE: Discharge Planning REVIEWER: Tiana Courtney CM obtained faxed DC med list from [facility]. Gave copy of med list to ER nurse, Rhonda. ENTERED DATE: 08/08/20 9:51 CT COMMENT TYPE: Discharge Planning REVIEWER: Tiana Courtney CM called [facility] to request copy of discharge medication list from last hospital discharge. CM faxed written request for records as instructed. Awaiting response to request. DCP REVIEW SUMMARY ANTICIPATED D/C DATE: EXPECTED LOS : CASE STATUS: DCP Initiated INITIAL REVIEW: 08/08/2020 INITIAL REVIEWER: Tiana Courtney FINAL DISCHARGE DISPOSITION: : FINAL REVIEWER: FINAL REVIEW DATE: DCP Focus Questions & Answers DCP Screen QUESTION: ANSWER High Risk Factors: : Poor health literacy DCP Evaluation QUESTION: ANSWER Patient's ability to cope with chronic illness : c. Inadequate (3+ ED visits in 6 mos., readmits within 30 days, 2+ hospital admissions in 1 yr.) Patient gives permission to discuss discharge plans with: (name, relationship and number) : SONSIRENA Physical Status: : Independent with ADL's Family / Caregiver's ability to cope with chronic illness: : c. Inadequate (Enables pt. to make bad choices, cannot meet pt's. needs, difficult family dynamics) Living Arrangements: : Home Alone with Support Baseline cognitive status: : *Oriented to person, place, situation, time and present Pharmacy name(s): : [facility] Would patient like to participate in any Care Coordination programs (if applicable): : Not applicable Equipment in use: : Walker - [employer] Mental health screen: : No mental health history DCP Re-evaluation QUESTION: ANSWER Would patient like to participate in any Care Coordination programs (if applicable): : Not applicable PATIENT: TASH JEONG ENCOUNTER: [id number] MEDICAL RECORD#: [id number] ADMISSION DATE: 08/07/2020 DISCHARGE DATE: 08/11/2020 ATTENDING MD: SAJAN HERCULES : AGE: 60 MARITAL STATUS: D DC PLAN ID: [id number] FACILITY: [facility] PRINTED ON: 08/15/20 10:02 CT All edits/amendments must be made on the electronic document DICTATION DATE: 08/15/20 1002 RESIDENTIAL CONCIERGE: SONAL 08/15/20 1002 RPT#: [id number] DC DATE:08/11/20 STATUS: DIS IN [facility] [address] [place] [address] END OF REPORT
== END 2020-08-11 15:52 | disposition home health service (06) | DRG 604 ==
LOC: D.ER 16:35 → D.EDHOLD 20:09 → D.MS 20:09
PROVIDERS: Family Medicine; ADMIT Emergency Medicine; ATTEND Emergency Medicine
PROC: 0HQ0XZZ Repair Scalp Skin, External Approach (ICD-10-PCS; principal; 2020-08-07)
DX: S01.01XA Laceration without foreign body of scalp, initial encounter (principal); G93.41 Metabolic encephalopathy; E87.1 Hypo-osmolality and hyponatremia; W19.XXXA Unspecified fall, initial encounter; F10.20 Alcohol dependence, uncomplicated; E87.6 Hypokalemia; D64.9 Anemia, unspecified; I10 Essential (primary) hypertension; E78.5 Hyperlipidemia, unspecified; F31.9 Bipolar disorder, unspecified; E66.9 Obesity, unspecified; K21.9 Gastro-esophageal reflux disease without esophagitis

== ENCOUNTER 2020-09-02 15:43 | Inpatient (IN) | payer MEDICAID ==
[~2020-09-02] VITALS: Ht 162.6 cm; Wt 88.2 kg
[2020-09-02] VITALS (15 sets, daily range): BP systolic 67–109; BP diastolic 32–58; BMI 32.6
[~2020-09-02 15:43] MED LIST changes: +IMIPRAMINE10 MG PO; +INVEGA 3 MG ER T3 MG PO; +NAPROSYN500 MG PO; +SYNTHROID50 MCG PO; +ULTRAM50 MG PO
--- NOTE | 2020-09-02 15:59 | NUR ---
IN AND OUT CATHETER URINE COLLECTED ET TO LAB AT THIS TIME. PT TOLERATED WELL.
[2020-09-02 16:02] LABS: KETONE NEGATIVE (NEGATIVE); NITRITE NEGATIVE (NEGATIVE)
[2020-09-02 16:03] LABS: BILIRUBIN 2+ (NEGATIVE); SQUAMOUS EPITHELIAL OCC HPF (0-4); WHITE CELLS - URINE 0-5 HPF (0-4)
[2020-09-02 16:04] LABS: BACTERIA MODERATE HPF (NONE SEEN)
[2020-09-02 16:05] LABS: UDS - AMPHET NEGATIVE QUAL (NEGATIVE); UDS - BARB NEGATIVE QUAL (NEGATIVE); UDS - BENZO POSITIVE QUAL (NEGATIVE); UDS - COCAINE NEGATIVE QUAL (NEGATIVE); UDS - OPIATE NEGATIVE QUAL (NEGATIVE); UDS - PCP NEGATIVE QUAL (NEGATIVE); UDS - THC NEGATIVE QUAL (NEGATIVE)
[2020-09-02 16:25] LABS: BASOPHILS 0 % (0-2); EOSINOPHILS 0 % (0-7); HEMATOCRIT 29.7 % (36.0-48.0); HEMOGLOBIN 10.3 g/dL (12-16); IMMATURE GRANULOCYTES 0.1 % (0-5); LYMPHOCYTE ABS# 1.23 10x3/uL (1.18-3.74); LYMPHOCYTES 13.8 % (15-50); MCH 31.8 pg (26.0-34.0); MCHC 34.7 g/dL (31.0-37.0); MCV 91.7 fL (80.0-100.0); MEAN PLATELET VOLUME 12.4 fL (7.4-10.4); MONOCYTES 10.2 % (2-11); NEUTROPHIL ABS# 6.77 10x3/uL (1.56-6.13); NEUTROPHILS 75.9 % (40-80); RBC 3.24 10x6/uL (4.00-5.40); RDW 14.5 % (11.5-14.5); WBC 8.9 10x3/uL (4.8-10.8)
[2020-09-02 16:27] LABS: PLATELET COUNT 152 10x3/uL (130-400)
[2020-09-02] MEDS ORDERED: ACCUPRIL20 MG PO (16:41)
--- NOTE | 2020-09-02 16:50 | NUR ---
JAK ROWE, APS [phone] ON PHONE CHECKING ON PT. STATES HE WILL BE OPENING A CASE ON PT.
[2020-09-02 17:03] LABS: ALBUMIN 2.1 g/dL (3.4-5.0); ALKALINE PHOSPHATASE 208 U/L (30-120); ALT (SGPT) 218 U/L (10-68); BILIRUBIN - TOTAL 3.04 mg/dL (0.2-1.3); CARBON DIOXIDE 15.3 mmol/L (21.0-32.0); CKMB 20.9 U/L (0.0-3.6); GLUCOSE 76 mg/dL (74-106); MAGNESIUM - SERUM 1.3 mg/dL (1.8-2.4); POTASSIUM - SERUM 3.1 mmol/L (3.5-5.1); PROTEIN - SERUM 5.2 g/dL (6.4-8.2); THYROID STIMULATING HORMONE 0.61 uIU/mL (0.36-3.74); TROPONIN-I 0.042 ng/mL (0.000-0.060); UREA NITROGEN 47 mg/dL (7-18); eGFR NON AFRICAN AMERICAN 12 mL/min (90-120)
[2020-09-02 17:06] LABS: CALC OSMOLALITY 247 mosm/kg (275-300); CREATINE KINASE 1170 UL (21-215)
[2020-09-02 17:11] LABS: CHLORIDE - SERUM 77 mmol/L (98-107); SODIUM 117 mmol/L (136-145)
[2020-09-02 17:13] LABS: APTT 34.1 SECONDS (22.8-39.4); INR 1.33 (0.85-1.17); PROTIME 15.3 SECONDS (11.6-15.0)
--- NOTE | 2020-09-02 18:32 | NUR ---
REPORT CALLED TO SJ HOGAN AT THIS TIME. SHE REQUESTS 2ND BAG OF NS INFUSED ET BP RECHECKED PRIOR TO PT TRANSFERRING TO FLOOR. 2ND BAG CONTINUES TO INFUSE AT THIS TIME.
--- NOTE | 2020-09-02 19:00 | NUR ---
PT LAYING ON BED. PATIENT ORIENTED TO PERSON AND PLACE.
--- NOTE | 2020-09-02 20:10 | NUR ---
ELLIOTT DUPONT APRN AT BEDSIDE, AWARE OF PT CURRENT VITAL SIGNS INCLUDING BP. VERBAL ORDER PROVIDED THAT ONCE SECOND BOLUS OF NS IS COMPLETE, RN TO BOLUS 500ML NS.
--- NOTE | 2020-09-02 20:33 | NUR ---
ROCEPHIN INFUSION COMPLETE AT THIS TIME.
--- NOTE | 2020-09-02 21:15 | NUR ---
ELLIOTT DUPONT APRN AWARE OF PT CURRENT VITALS. STATES PT WILL BE TRANSFERRED TO ICU BED AND LEVOPHED WILL BE ORDERED.
--- NOTE | 2020-09-02 21:19 | NUR ---
PATIENT PROVIDED LEMON [employer] SODA AND PUDDING.
--- NOTE | 2020-09-02 21:39 | NUR ---
LEVOPHED INFUSION STARTED AT 5MCG TO R WRIST.
--- NOTE | 2020-09-02 21:55 | NUR ---
LEVOPHED INCREASED TO 10 MCG.
--- NOTE | 2020-09-02 22:45 | NUR ---
REC'D PT TO ROOM CVO6, ORIENTED TO PERSON ONLY, PT DISHELEVED ON ARRIVAL, RIGHT WRIST PIV WITH NS @ 125CC/HR AND LEVOPHED @ 10MCG/MIN OR 18.4CC/HR, ATTEMPTED 2ND PIV AT THIS TIME PT PULLED PIV BEFORE LEAVING ED, LINENS CHANGED AND PUREWICK PLACED AFTER PT CLEANED, PT REDIRECTS EASILY AND COOPERATES WITH INSTRUCTION, CM-ST @ 111, BP 109/58, SR UP X 3, BED IN LOW POSITION, BED ALARM ON, VISIBLE TO NURSES STATION.
[2020-09-02] MEDS ORDERED: ZOLOFT100 MG PO (23:54)
[2020-09-03] VITALS (79 sets, daily range): BP systolic 76–143; BP diastolic 37–85
--- NOTE | 2020-09-03 | NUR ---
ATTEMPTED PIV X 3 AGAIN AT THIS TIME WITHOUT SUCCESS, RIGHT WRIST 20GAUGE CONTINUES
--- NOTE | 2020-09-03 03:00 | NUR ---
22 GAUGE TO LEFT FOREARM SITED BY Kary ADAN RN. PT TOLERATED WELL, LEVOPHED MOVED TO LEFT FOREARM AT THIS TIME, NS HELD, AND BANANA BAG BEGAN @ 125CC/HR, WILL MONITOR FOR CHANGES.
[2020-09-03 04:31] LABS: BASOPHILS 0.1 % (0-2); EOSINOPHILS 0.1 % (0-7); HEMATOCRIT 29.3 % (36.0-48.0); HEMOGLOBIN 10.1 g/dL (12-16); IMMATURE GRANULOCYTES 0.3 % (0-5); LYMPHOCYTE ABS# 1.16 10x3/uL (1.18-3.74); LYMPHOCYTES 12.2 % (15-50); MCH 32.1 pg (26.0-34.0); MCHC 34.5 g/dL (31.0-37.0); MEAN PLATELET VOLUME 12.6 fL (7.4-10.4); NEUTROPHIL ABS# 7.52 10x3/uL (1.56-6.13); NEUTROPHILS 79.3 % (40-80); RBC 3.15 10x6/uL (4.00-5.40); RDW 14.7 % (11.5-14.5); WBC 9.5 10x3/uL (4.8-10.8)
[2020-09-03 04:33] LABS: PLATELET COUNT 187 10x3/uL (130-400)
[2020-09-03 04:39] LABS: ALBUMIN 2.1 g/dL (3.4-5.0); BILIRUBIN - TOTAL 3.15 mg/dL (0.2-1.3); CALCIUM 7.9 mg/dL (8.5-10.1); CREATININE - SERUM 3.7 mg/dL (0.6-1.3); MAGNESIUM - SERUM 1.3 mg/dL (1.8-2.4); PHOSPHOROUS 1.6 mg/dL (2.5-4.9); PROTEIN - SERUM 5.1 g/dL (6.4-8.2)
[2020-09-03 04:42] LABS: ANION GAP 20.6 mmol/L (8-16); CARBON DIOXIDE 19.3 mmol/L (21.0-32.0); POTASSIUM - SERUM 2.9 mmol/L (3.5-5.1)
[2020-09-03 17:36] LABS: CREATININE - SERUM 2.9 mg/dL (0.6-1.3)
[2020-09-03 17:37] LABS: ANION GAP 20.6 mmol/L (8-16); CALCIUM 7.4 mg/dL (8.5-10.1); CARBON DIOXIDE 18.2 mmol/L (21.0-32.0)
[2020-09-03 17:38] LABS: POTASSIUM - SERUM 2.8 mmol/L (3.5-5.1)
--- NOTE | 2020-09-03 18:19 | NUR ---
1800: DR. AGUERO NOTIFIED OF ELEVATED BLOOD SUGAR. NEW ORDERS REC'.
--- NOTE | 2020-09-03 19:30 | NUR ---
REPORT REC'D AND CARE ASSUMED, REC'D PT RESTING IN BED SLEEPING ON ROOM AIR, AWAKENS TO VERBAL STIMULI, ORIENTED TO PERSON AND PLACE ONLY, RIGHT WRIST PIV WITH BANANA BAG INFUSING @ 125CC/HR, LEFT FOREARM PIV SALINE LOCKED, PT MAEE, RESTLESS IN BED AT TIMES, PUREWICK EXTERNAL CATHETER IN PLACE, CONCENTRATED URINE NOTED IN CANNISTER, PT DENIES PAIN OR NEEDS, SR UP X 2, BED IN LOW POSITION, CALL LIGHT IN REACH.
--- NOTE | 2020-09-03 20:00 | NUR ---
PT COMPLAINS OF BEING WET, PARTIAL BATH AND LINEN CHANGE PROVIDED,PT REPOSITIONED UP IN BED FOR COMFORT.
--- NOTE | 2020-09-03 21:30 | NUR ---
EVENING MEDS GIVEN ORDERED, PT'S BED WET WITH EXTERNAL CATH INTACT, COMPLETE BATH AND LINEN CHANGE PROVIDED, PT WISHES TO LEAVE EXTERNAL CATH OFF AT THIS TIME AND WILL NOTIFY NURSE WHEN SHE NEEDS TO VOID, CALL LIGHT IN REACH.
--- NOTE | 2020-09-03 23:00 | NUR ---
PT VOIDED ON BEPAN 400CC CONCENTRATED URINE, PERICARE PROVIDED AND PT REPOSITIONED IN BED.
[2020-09-04] VITALS (24 sets, daily range): BP systolic 88–142; BP diastolic 42–79
--- NOTE | 2020-09-04 01:00 | NUR ---
PT HAS ATTEMTPED TO VOID ON BEDPAN X 2 WITHOUT SUCCESS, EXTERNAL CATH PLACED PT DENIES FURTHER NEEDS.
[2020-09-04 05:05] LABS: BASOPHILS 0 % (0-2); EOSINOPHILS 0.1 % (0-7); HEMATOCRIT 29.2 % (36.0-48.0); HEMOGLOBIN 9.8 g/dL (12-16); IMMATURE GRANULOCYTES 0.4 % (0-5); LYMPHOCYTE ABS# 1.43 10x3/uL (1.18-3.74); LYMPHOCYTES 19.4 % (15-50); MCH 31.7 pg (26.0-34.0); MCHC 33.6 g/dL (31.0-37.0); MCV 94.5 fL (80.0-100.0); MONOCYTES 10.2 % (2-11); NEUTROPHIL ABS# 5.16 10x3/uL (1.56-6.13); NEUTROPHILS 69.9 % (40-80); PLATELET COUNT 158 10x3/uL (130-400); RBC 3.09 10x6/uL (4.00-5.40); RDW 14.2 % (11.5-14.5); WBC 7.4 10x3/uL (4.8-10.8)
[2020-09-04 05:26] LABS: ALBUMIN 1.9 g/dL (3.4-5.0); BILIRUBIN - TOTAL 3.05 mg/dL (0.2-1.3); CALCIUM 8.5 mg/dL (8.5-10.1); CARBON DIOXIDE 20.7 mmol/L (21.0-32.0); CREATININE - SERUM 2.3 mg/dL (0.6-1.3); PROTEIN - SERUM 4.8 g/dL (6.4-8.2)
[2020-09-04 05:30] LABS: MAGNESIUM - SERUM 2.6 mg/dL (1.8-2.4)
[2020-09-04 05:31] LABS: ANION GAP 17.3 mmol/L (8-16); PHOSPHOROUS 1.4 mg/dL (2.5-4.9)
[2020-09-04 18:10] LABS: MAGNESIUM - SERUM 1.9 mg/dL (1.8-2.4); PHOSPHOROUS 1.8 mg/dL (2.5-4.9); POTASSIUM - SERUM 3.1 mmol/L (3.5-5.1)
--- NOTE | 2020-09-04 23:12 | NUR ---
PT SOB WITH INCREASED WORK OF BREATHING. PT WITH RALES NOW BILAT. IVF PAUSED. GAB UNIT MANAGER RN CALLED. DISCUSSED PT AND STATUS. TURN OFF BANANA BAG. PLACING JOHNSON AND GIVING BUMEX. WILL CONT TO MONITOR. CONT MAINT IVF WITH Jw
--- NOTE | 2020-09-04 23:34 | NUR ---
16F JOHNSON PLACED WITHOUT DIFFICULTY AND 40CC URINE NOTED. BUMEX GIVEN ORDERED. PT TRYING TO GET UP OUT OF BED. CONT TO REORIENT TO REMIND PT SHE CANT GET UP. WILL CONT TO MONITOR.
[2020-09-05] VITALS (27 sets, daily range): BP systolic 84–146; BP diastolic 44–98; BMI 32.8
--- NOTE | 2020-09-05 01:10 | NUR ---
RESP LESS LABORED NOW. PT NO LONGER AGITATED AND TRYING TO GET OOB. LUNGS WITHOUT CRACKLES NOW. 400CC UOP NOTED IN JOHNSON SINCE PLACED. VSS. MAINT IVF CONTINUES AT 50CC/HR. WILL CONT TO MONITOR CLOSELY.
[2020-09-05 04:16] LABS: BASOPHILS 0.2 % (0-2); EOSINOPHILS 1.3 % (0-7); HEMATOCRIT 31.4 % (36.0-48.0); HEMOGLOBIN 10.5 g/dL (12-16); IMMATURE GRANULOCYTES 0.6 % (0-5); LYMPHOCYTE ABS# 1.84 10x3/uL (1.18-3.74); LYMPHOCYTES 34.8 % (15-50); MCH 31.8 pg (26.0-34.0); MCHC 33.4 g/dL (31.0-37.0); MCV 95.2 fL (80.0-100.0); MEAN PLATELET VOLUME 11.4 fL (7.4-10.4); NEUTROPHIL ABS# 2.44 10x3/uL (1.56-6.13); NEUTROPHILS 46.1 % (40-80); PLATELET COUNT 140 10x3/uL (130-400); RDW 14.4 % (11.5-14.5)
[2020-09-05 04:29] LABS: WBC 5.3 10x3/uL (4.8-10.8)
[2020-09-05 04:40] LABS: ANION GAP 16.2 mmol/L (8-16); BILIRUBIN - TOTAL 2.97 mg/dL (0.2-1.3); CALCIUM 8.7 mg/dL (8.5-10.1); CARBON DIOXIDE 19.6 mmol/L (21.0-32.0); MAGNESIUM - SERUM 2.1 mg/dL (1.8-2.4); PHOSPHOROUS 1.9 mg/dL (2.5-4.9); POTASSIUM - SERUM 3.8 mmol/L (3.5-5.1); PROTEIN - SERUM 5.1 g/dL (6.4-8.2)
[2020-09-05 04:50] LABS: CREATININE - SERUM 1.5 mg/dL (0.6-1.3)
--- NOTE | 2020-09-05 06:37 | NUR ---
ONCKAYODE THIRD GRADE TEACHER PAGED. PT WITH RALES AGAIN AND SOB WITH MILD INCREASE IN RR. RALES BILATERAL AFTER INCREASED UOP WITH BUMEX
--- NOTE | 2020-09-05 06:44 | NUR ---
SPOKE WITH ONCALL ELLIOTT VENTURA, DISCUSSED PT STATUS. NEW ORDER FOR XOPEX RECEIVED. RT CALLED FOR NOW ORDER BASED ON PT STATUS. REPORTS WILL BE HERE SHORTLY. WILL CONT TO MONITOR.
--- NOTE | 2020-09-05 06:54 | NUR ---
RT TO BS FOR XOPENEX TREATMENT. PT WITH POOR UNDERSTANDING AND ABILTIY WITH IS HAVE ATTEMPTED SEVERAL TIMES. PT WITH WET COUGH BUT NOT PRODUCTIVE.
--- NOTE | 2020-09-05 10:36 | NUR ---
PT INC OF STOOL. PT BATHED AND LINENS CHANGED.
[2020-09-06] VITALS (63 sets, daily range): BP systolic 63–141; BP diastolic 30–100; Ht 162.6 cm; Wt 88.2 kg
[2020-09-06 05:09] LABS: HEMATOCRIT 30.6 % (36.0-48.0); HEMOGLOBIN 10.2 g/dL (12-16); MCH 32.7 pg (26.0-34.0); MCHC 33.4 g/dL (31.0-37.0); MEAN PLATELET VOLUME 9.6 fL (7.4-10.4); PLATELET COUNT 146 10x3/uL (130-400); RBC 3.13 10x6/uL (4.00-5.40); RDW 14.9 % (11.5-14.5)
[2020-09-06 05:23] LABS: MCV 97.8 fL (80.0-100.0)
[2020-09-06 05:34] LABS: PLATELET ESTIMATE DECREASED
[2020-09-06 05:57] LABS: EOSINOPHILS 1 % (0-7); LYMPHOCYTES 71 % (15-50); MONOCYTES 3 % (2-11); NEUTROPHILS 25 % (40-80)
[2020-09-06 06:07] LABS: ALBUMIN 1.9 g/dL (3.4-5.0); ANION GAP 15.3 mmol/L (8-16); BILIRUBIN - TOTAL 2.8 mg/dL (0.2-1.3); CALCIUM 8.1 mg/dL (8.5-10.1); CARBON DIOXIDE 23.6 mmol/L (21.0-32.0); CREATININE - SERUM 1.2 mg/dL (0.6-1.3); PHOSPHOROUS 1.9 mg/dL (2.5-4.9); POTASSIUM - SERUM 3.9 mmol/L (3.5-5.1); PROTEIN - SERUM 4.9 g/dL (6.4-8.2)
[2020-09-06 06:08] LABS: MAGNESIUM - SERUM 1.4 mg/dL (1.8-2.4)
--- NOTE | 2020-09-06 07:00 | NUR ---
RECEIVED BEDSIDE REPORT ON PATIENT AND ASSUMED CARE. PATIENT, NAKED IN BED, WITH MONITORING CABLES WRAPPED AROUND HER BODY, AND HAS PULLED OUT HER RIGHT WRIST PERIPHERAL IV. PATIENT CONFUSED TO SITUATION AND TIME. REORIENTED TO BUT REMAINS CONFUSED, DOES FOLLOW COMMANDS BUT SLOW TO RESPOND. VSS. IV LEFT FA 22 GA INFUSING NS WITH 20 MEQ KCL AT 50 ML/HR AND LEVOPHED AT 5 MCG/MIN, BP 141/81 (101), CM - SR RATE OF 88, SPO2 - 99%, EXPIRATORY WHEEZES NOTED, BBS - SHALLOW, SCDS IN PLACE. PATIENT PLACED IN A GOWN AND REPOSITIONED IN BED. PATIENT CONTINUES TO PULL OFF MONIORING EQUIPMENT. HEAD TO TOE ASSESSMENT COMPLETED.
[2020-09-06 09:43] LABS: CKMB 1.3 U/L (0.0-3.6)
--- NOTE | 2020-09-06 11:00 | NUR ---
REASSESSMENT COMPLETED. DR. JONES AT ROOM UPDATED AND EXAMINES PATIENT. ORDERS RECEIVED. IV FLUIDS INCREASED TO 75 ML/HR.
--- NOTE | 2020-09-06 11:40 | NUR ---
KOMAL GIRALDO NOTIFIED OF CARDIOLOGY CONSULT.
--- NOTE | 2020-09-06 15:00 | NUR ---
REASSESSMENT COMPLETED.
--- NOTE | 2020-09-06 17:10 | NUR ---
MARINE ENGINE MACHINIST AT ROOM FOR ECHOCARIDOGRAM, PATIENT NOT COOPERATIVE, IMPORTANCE OF EXAM EXPLAINED, PT REMAINS CONFUSED BUT MORE COOPERATIVE.
[2020-09-07] VITALS (24 sets, daily range): BP systolic 80–127; BP diastolic 47–82
[2020-09-07 05:18] LABS: BASOPHILS 1.2 % (0-2); EOSINOPHILS 1.2 % (0-7); HEMATOCRIT 30.9 % (36.0-48.0); LYMPHOCYTES 48.1 % (15-50); MCH 31.9 pg (26.0-34.0); MCHC 32.5 g/dL (31.0-37.0); MCV 98.2 fL (80.0-100.0); MEAN PLATELET VOLUME 9.6 fL (7.4-10.4); MONOCYTES 17.7 % (2-11); NEUTROPHILS 31.8 % (40-80); PLATELET COUNT 150 10x3/uL (130-400); RBC 3.15 10x6/uL (4.00-5.40); RDW 15.1 % (11.5-14.5); WBC 5.3 10x3/uL (4.8-10.8)
[2020-09-07 05:33] LABS: ALBUMIN 1.8 g/dL (3.4-5.0); ANION GAP 13.7 mmol/L (8-16); BILIRUBIN - TOTAL 2.71 mg/dL (0.2-1.3); CALCIUM 7.8 mg/dL (8.5-10.1); CARBON DIOXIDE 24.2 mmol/L (21.0-32.0); CREATININE - SERUM 1.2 mg/dL (0.6-1.3); POTASSIUM - SERUM 3.9 mmol/L (3.5-5.1); PROTEIN - SERUM 4.7 g/dL (6.4-8.2)
[2020-09-07 05:48] LABS: MAGNESIUM - SERUM 1.8 mg/dL (1.8-2.4); PHOSPHOROUS 2.7 mg/dL (2.5-4.9)
--- NOTE | 2020-09-07 06:41 | NUR ---
0120 - STOPPED LEVOPHED DRIP AT THIS TIME AFTER TITRATING RATE DOWN BEGINNING AT 223O WHEN PT'S SBP WAS CONSISTENTLY >120. PT'S SBP HAS BEEN MAINTAINING >90 THROUGHOUT THE COURSE OF TITRATION. WILL CONTINUE TO MONITOR PRESSURE CLOSELY.
--- NOTE | 2020-09-07 11:29 | NUR ---
PIV LEAKING, DCD, UNABLE TO PLACE ANOTHER IV, ATTEMPTED X3 NURSES, SPOKE WITH DR JONES AND OK TO NOT PLACE ANOTHER IV AT THIS TIME AND TO MONITOR I&OS
--- NOTE | 2020-09-07 11:34 | NUR ---
REPORT CALLED TO DENI PT TO TRANSFER TO 2253
--- NOTE | 2020-09-07 11:54 | NUR ---
Nutrition Follow-up: Nursing reports confusion. Noted pt reports being hungry. Overall PO intake reported has been poor. Diet: Diabetic PO intake: 32% avg x 5 meals (09/04-09/05) Wt: 194# (09/07) Labs noted: Glu 99, A1c 4.3, Ca 7.8, Alb 1.8, Ammonia 41, elev LFTs Meds noted: Pepcid, NS KCl @ 75, electrolyte protocol -MD may consider diet liberalization (A1c 4.3). -Encourage PO intake and honor food preferences within diet restrictions. -Offer/encourage nutrition supplements. -RD follow-up: 09/09
--- NOTE | 2020-09-07 12:28 | NUR ---
PATIENT RECEIVED TO ROOM 2227.
--- NOTE | 2020-09-08 03:49 | NUR ---
PATIENT HAS BEEN SLEEPING MOST OF THE SHIFT, BUT EASY TO AROUSE, SHE ATE A FEW BITES OF A SANDWICH AND SOME MILK, SHE DENIES PAIN, SHE IS CURRENTLY RESTING IN BED WITH HER EYES CLOSED.
[2020-09-08 04:00] VITALS: BP 134/90
[2020-09-08 06:04] LABS: BASOPHILS 1.3 % (0-2); EOSINOPHILS 1.3 % (0-7); LYMPHOCYTES 45.8 % (15-50); MCH 31.6 pg (26.0-34.0); MCHC 32.2 g/dL (31.0-37.0); MCV 98.1 fL (80.0-100.0); MEAN PLATELET VOLUME 9.4 fL (7.4-10.4); MONOCYTES 9.4 % (2-11); NEUTROPHILS 42.2 % (40-80); PLATELET COUNT 157 10x3/uL (130-400); RDW 15.1 % (11.5-14.5); WBC 5.1 10x3/uL (4.8-10.8)
[2020-09-08 06:08] LABS: HEMATOCRIT 37.4 % (36.0-48.0); RBC 3.81 10x6/uL (4.00-5.40)
[2020-09-08 06:22] LABS: ALBUMIN 2.2 g/dL (3.4-5.0); ANION GAP 14.4 mmol/L (8-16); BILIRUBIN - TOTAL 3.8 mg/dL (0.2-1.3); CARBON DIOXIDE 22.7 mmol/L (21.0-32.0); CREATININE - SERUM 1.2 mg/dL (0.6-1.3); POTASSIUM - SERUM 4.1 mmol/L (3.5-5.1); PROTEIN - SERUM 5.9 g/dL (6.4-8.2)
--- NOTE | 2020-09-08 07:32 | NUR ---
REC'D IN BED WITH EYES CLOSED EASILY TO AROUSED WHEN NAME IS CALLED. RESP EVEN AND UNLABORED WITH NO DISTRESS NOTED. WILL CONTINUE TO OBSERVE FOR NEEDS.
[2020-09-08 08:25] VITALS: BP 122/92
--- NOTE | 2020-09-08 11:28 | NUR ---
I have reviewed this patient and I concur with the Shift Assessment completed by the Licensed Practical Nurse today this shift.
--- NOTE | 2020-09-08 13:09 | NUR ---
DC JOHNSON CATH AT THIS TIME WITH 100 CC. NOTED TO CCOLLECTION DEVICE.
--- NOTE | 2020-09-08 14:31 | NUR ---
OFF FLOOR TO CT SCAN AT THIS TIME. STABLE UPON DEPARTURE.
--- NOTE | 2020-09-08 14:40 | NUR ---
RETURN BACK TO ROOM AT THIS TIME. C/L IN REACH AT BEDSIDE.
[2020-09-08 17:18] VITALS: BP 105/70
--- NOTE | 2020-09-08 17:34 | NUR ---
PT FEED AT THIS TIME VIA NURSE WITH FAIR INTACT NOTED. VOICE NO C/O AT THIS TIME. WILL CONTINUE TO OBSERVE FOR NEEDS. C/L IN REACH AT BEDSIDE.
[2020-09-08 20:00] VITALS: BP 101/71
[2020-09-09] VITALS: BP 106/70
[2020-09-09 04:00] VITALS: BP 111/75
--- NOTE | 2020-09-09 04:21 | NUR ---
ASSESSED AT THE BEGINNING OF THE SHIFT. SHE IS ALERT AND ABLE TO TALK WITH STAFF BUT HAS SOME CONFUSION. HER FIRST BLOOD SUGAR WAS 77 AND SHE WAS GIVEN ORINGE JUICE TO DRINK. HER BLOOD SUGAR LATER WAS 92. SHE LOST HER IV SITE AT THE RIGHT UPPER ARM AND WE HAVAE HAD MANY NURSES ATTEMPT TO GET A NEW ONE BUT THE VEINS ARE JUST TOO EASY TO BLOW AND VALVES ARE TOO CLOSE. AT THIS TIME WE HAVE HER FLUIDS OFF AND SHE IS RESTING. WE HAVE CLEANED HER EACH TIME SHE IS WET AND WITH BM. BED ALARM IS IN PLACE AND SHE IS ASLEEP AT THIS TIME.
[2020-09-09 05:57] LABS: BASOPHILS 1.6 % (0-2); EOSINOPHILS 0.4 % (0-7); HEMOGLOBIN 10.3 g/dL (12-16); LYMPHOCYTES 48.7 % (15-50); MCH 32.7 pg (26.0-34.0); MCHC 33.2 g/dL (31.0-37.0); MCV 98.5 fL (80.0-100.0); MEAN PLATELET VOLUME 10.3 fL (7.4-10.4); MONOCYTES 7.4 % (2-11); NEUTROPHILS 41.9 % (40-80); PLATELET COUNT 172 10x3/uL (130-400); RBC 3.15 10x6/uL (4.00-5.40); RDW 15.2 % (11.5-14.5); WBC 5.7 10x3/uL (4.8-10.8)
[2020-09-09 06:13] LABS: ALBUMIN 1.9 g/dL (3.4-5.0); ANION GAP 14.5 mmol/L (8-16); BILIRUBIN - TOTAL 3.53 mg/dL (0.2-1.3); CALCIUM 8.8 mg/dL (8.5-10.1); CARBON DIOXIDE 21.8 mmol/L (21.0-32.0); POTASSIUM - SERUM 4.3 mmol/L (3.5-5.1)
--- NOTE | 2020-09-09 07:33 | NUR ---
RECIEVED BEDSIDE REPORT. IN BED, AROUSES TO VOICE. BED LOW POSITION, CALL LIGHT IN REACH. COURTNEY ALARM ON. FREE FROM SIGNS OF DISTRESS. WILL CONTINUE TO MONITOR.
[2020-09-09 08:15] VITALS: BP 128/63
--- NOTE | 2020-09-09 08:51 | NUR ---
SPOKE TO SACHIN AVALOS APN ABOUT NO IV. SAID IT WAS OKAY TO LEAVE OUT UNTIL SHE SEES THE PATIENT THIS AFTERNOON.
--- NOTE | 2020-09-09 10:18 | NUR ---
PLACED PATIENT ON CONTACT ISOLATION FOR VRE IN THE URINE. LINENS CHANGED, DENIES NEEDS AT THIS TIME.BED LOW POSITION, CALL LIGHT IN REACH. BED ALARM ON.
[2020-09-09 11:43] VITALS: BP 111/58
--- NOTE | 2020-09-09 14:03 | NUR ---
bNutrition follow-up: Pt now in isolation for VRD in urine diet order: consistent CHO PO intake continues to be poor; < 50% of meals Nursing has been feeding pt; pt still with poor po intake Labs reviewed Wt: 194# +BM Recommendations: Due to continued poor po intake, change diet to regular as tolerated to encourage increased po intake. RDN will order Ensure with meals. RDN will reassess pt on 09/12/20
--- NOTE | 2020-09-09 14:22 | NUR ---
PATIENT HAS NOT BEEN NPO FOR EIGHT HOURS. PLACED NPO AFTER MIDNIGHT FOR US ABDOMEN TOMMORORW 09/10/2020.
[2020-09-09 16:09] VITALS: BP 107/66
--- NOTE | 2020-09-09 16:24 | NUR ---
OT NOTE: PT COMPLETED SIDE ROLLING WITH MIN A. PT COMPLETED POSITIONING WITH MOD-MAX A. PT REQUIRED MAX A FOR LB HYGIENE TASKS. PT COMPLETED FACE AND HAND HYGIENE WITH MOD A. PT REQUIRED CUES FOR ATTENTION TO TASKS AND REDIRECTION. PT CONTINUALLY ASKING WHEN CAN I GO HOME. PT EDUCATED THAT MEDICAL STAFF WILL MAKE THAT DETERMINATION. PT DID EXHIBIT ACTIVE MOVEMENT IN UES. [phone] THANK YOU,BRIA VILLAVICENCIO
[2020-09-09 22:09] VITALS: BP 108/63
--- NOTE | 2020-09-09 22:55 | NUR ---
ASSESSED AT THE EGINNING OF THE SHIFT. PT IS ALERT AND ORIENTED, ABLE TO VERBALIZE NEEDS. WE STILL HAVE HER "NO FREE WATER" AND AT MIDNIGHT SHE WILL BE NPO FOR AN ULTRA SOUND IN THE AM. HER BLOOD SUGAR AT HS WAS 86 AND HER TELEMETRY IS SHOWING SINUS RHYTHM 67. SHE REMAINS INCONT. WITH ORANGE COLORED URINE. WE NOW HAVE HER IN CONTACT ISOLATION FOR VRE OF THE URINE. STILL NO IV PLACEMENT BUT IS AWARE.
[2020-09-10 04:58] VITALS: BP 103/67
[2020-09-10 06:05] LABS: BASOPHILS 1.2 % (0-2); EOSINOPHILS 0.6 % (0-7); HEMATOCRIT 30.5 % (36.0-48.0); LYMPHOCYTES 40.2 % (15-50); MCH 32.2 pg (26.0-34.0); MCHC 32.7 g/dL (31.0-37.0); MCV 98.2 fL (80.0-100.0); MEAN PLATELET VOLUME 10.4 fL (7.4-10.4); MONOCYTES 8.4 % (2-11); NEUTROPHILS 49.6 % (40-80); PLATELET COUNT 177 10x3/uL (130-400); RBC 3.11 10x6/uL (4.00-5.40); RDW 15.4 % (11.5-14.5); WBC 5.7 10x3/uL (4.8-10.8)
[2020-09-10 06:32] LABS: ALBUMIN 1.7 g/dL (3.4-5.0); ANION GAP 14.8 mmol/L (8-16); BILIRUBIN - TOTAL 3.53 mg/dL (0.2-1.3); CALCIUM 8.7 mg/dL (8.5-10.1); CARBON DIOXIDE 20.9 mmol/L (21.0-32.0); POTASSIUM - SERUM 4.7 mmol/L (3.5-5.1); PROTEIN - SERUM 4.6 g/dL (6.4-8.2)
--- NOTE | 2020-09-10 06:40 | NUR ---
PT WAS CLEANED FROM A WET BED AND GIVEN HER AM MEDS. HER BLOOD SUGAR WAS 62 AND SHE WAS GIVEN ORANGE JUICE TO DRINK. SHE ASKED FOR WATER BUT WAS TOLD THAT SHE NEEDED THE JUICE BECAUSSE OF HER BLOOD SUGAR.
--- NOTE | 2020-09-10 08:17 | NUR ---
AWAKE AND ALERT. ORIENTED TO SELF ONLY. ATTEMPTS TO REORIENT WITHOUT SUCCESS. LUNGS ARE CLEAR BILATERALLY, NO COUGH NOTED. SKIN IS INTACT WITHOUT REDNESS BUT LOTS OF BRUISED AREAS NOTED IN VARIOUS STAGES OF HEALING. NO IV AT THIS TIME. NO NEEDS NOTED.
[2020-09-10 08:24] VITALS: BP 103/65
--- NOTE | 2020-09-10 09:30 | NUR ---
US IN PROGRESS. BREAKFAST TRAY ORDERED. TOOK AM MEDS WITHOUT DIFFICUTLY.
--- NOTE | 2020-09-10 11:30 | NUR ---
FSBS 112. NO COVERAGE NEEDED.
[2020-09-10 13:02] VITALS: BP 93/66
[2020-09-10 17:44] VITALS: BP 97/61
--- NOTE | 2020-09-10 19:06 | NUR ---
ATE ONLY 2 BITES OF SUPPER TRAY. DENIES NEEDS. NO CHANGES NOTED.
[2020-09-10 20:00] VITALS: BP 90/67
[2020-09-11] VITALS: BP 109/72
[2020-09-11 04:00] VITALS: BP 137/75
[2020-09-11 06:27] LABS: BASOPHILS 1.2 % (0-2); EOSINOPHILS 0.5 % (0-7); HEMATOCRIT 31.6 % (36.0-48.0); HEMOGLOBIN 10.4 g/dL (12-16); LYMPHOCYTES 39.5 % (15-50); MCH 32.3 pg (26.0-34.0); MCHC 32.9 g/dL (31.0-37.0); MCV 98.2 fL (80.0-100.0); MEAN PLATELET VOLUME 10.4 fL (7.4-10.4); MONOCYTES 7.5 % (2-11); NEUTROPHILS 51.3 % (40-80); PLATELET COUNT 185 10x3/uL (130-400); RBC 3.22 10x6/uL (4.00-5.40); RDW 15.5 % (11.5-14.5); WBC 5.9 10x3/uL (4.8-10.8)
[2020-09-11 07:23] LABS: ALBUMIN 1.7 g/dL (3.4-5.0); ANION GAP 16.2 mmol/L (8-16); BILIRUBIN - TOTAL 3.93 mg/dL (0.2-1.3); CALCIUM 8.6 mg/dL (8.5-10.1); CARBON DIOXIDE 21.6 mmol/L (21.0-32.0); POTASSIUM - SERUM 4.8 mmol/L (3.5-5.1); PROTEIN - SERUM 4.4 g/dL (6.4-8.2)
[2020-09-11 08:50] VITALS: BP 106/67
--- NOTE | 2020-09-11 09:00 | NUR ---
ASSESSMENT PER FLOW SHEET. PATIENT IS WITHOUT DISTRESS.FALL PREVENTION WITH COURTNEY MAT.COURTNEY ON AND WORKING. ISOLATION MAINTAINED.CALL LIGHT IN REACH
[2020-09-11 13:31] VITALS: BP 103/67
--- NOTE | 2020-09-11 14:47 | NUR ---
CALL TO [facility],EMERGENCY CONTACT PER PAIENT REQUEST.SHE IS TALKING WITH HER. PATIENT IS WITHOUT DISTRESS.
[2020-09-11 17:08] VITALS: BP 116/81
[2020-09-11 20:00] VITALS: BP 119/68
[2020-09-12] VITALS: BP 115/79
[2020-09-12 04:00] VITALS: BP 129/82
[2020-09-12 05:07] LABS: ALP - ISO (ALP) 264 IU/L (48-121); ALP - ISO (BONE) FRACTION 47 % (14-68); ALP - ISO (LIVER) FRACTION 44 % (18-85); ALP - ISO(INTESTINAL) FRACTION 9 % (0-18)
[2020-09-12 07:31] LABS: HEMATOCRIT 33.7 % (36.0-48.0); HEMOGLOBIN 10.9 g/dL (12-16); MCH 32.2 pg (26.0-34.0); MCHC 32.3 g/dL (31.0-37.0); MCV 99.5 fL (80.0-100.0); MEAN PLATELET VOLUME 10.4 fL (7.4-10.4); PLATELET COUNT 214 10x3/uL (130-400); RBC 3.39 10x6/uL (4.00-5.40); RDW 15.7 % (11.5-14.5); WBC 6.7 10x3/uL (4.8-10.8)
[2020-09-12 07:52] LABS: ALBUMIN 1.7 g/dL (3.4-5.0); ANION GAP 13.8 mmol/L (8-16); BILIRUBIN - TOTAL 4.37 mg/dL (0.2-1.3); CARBON DIOXIDE 22.5 mmol/L (21.0-32.0); CREATININE - SERUM 0.9 mg/dL (0.6-1.3); POTASSIUM - SERUM 4.3 mmol/L (3.5-5.1)
--- NOTE | 2020-09-12 09:26 | EC ---
PATIENT:TASH JEONG DATE OF SERVICE: 09/02/20 SEX: F MEDICAL RECORD: [id number] DATE OF : 60 LOCATION:[facility] AGE OF PATIENT: 60 ADMISSION DATE: 09/02/20 REFERRING PHYSICIAN: INTERPRETING PHYSICIAN: KATELIN THAKUR MD ECHOCARDIOGRAM REPORT ECHO CHARGES 4 ECHO COMPLETE Date: 09/06/20 CLINICAL DIAGNOSIS: HYPOTENSION ECHOCARDIOGRAPHIC MEASUREMENTS (adult normal given) AC root (d.<3.7cm) 3.3 cm LV Septum d (<1.2 cm> 1.2 cm Valve Excursion 1.5 cm LV Septum (systole) 1.1 cm Left Atria (s.<4.0cm> 3.6 cm LVPW d(<1.2cm) 1.2 cm RV (d.<2.3cm) 3.7 cm LVPW (sytole) 1.2 cm LV diastole(<5.6CM) 4.0 cm MV E-F(>70mm/sec) cm LV systole 2.7 cm LVOT Diameter 1.9 cm MV exc.(>10mm) cm Est.ejection fraction (50-75%) 55 % DOPPLER: LVIT cm/sec A 104 cm/sec E 114 cm/sec LA cm/sec RVSP 24 mmHg LVOT 86 cm/sec AOP1/2T m/s Asc. Ao 124 cm/sec RVOT 67 cm/sec RA cm/sec PA 72 cm/sec AV Gradient Peak 6 mmHg AV Mean 3 mmHg AV Area 2.2 cm MV Gradient Peak 4 mmHg MV Mean 2 mmHg MV Area cm COMMENTS: Building Equipment Operator: Spike HAY Welfare Worker: 3 Dr. Matias TAPE# Pericardial Effusion N DATE OF SERVICE: Adequate 2D, color-flow imaging, spectral Doppler, and M-Mode Mild LVH. LV internal dimensions were normal. Wall motion is normal. EF is greater than or equal to 55%. Aortic valve is tricuspid. No evidence of stenosis by Doppler regurgitation. Left atrium is normal at 3.6 cm. Mitral valve shows no prolapse. Trace MR. Right side is grossly normal. Mild TR. TRANSINT:[id number] Voice Confirmation ID: [id number] DOCUMENT ID: [id number] ECHOCARDIOGRAM REPORT [id number] TASH JEONG KATELIN THAKUR MD at 0926 CC: [id number] DICTATION DATE: 09/09/20 1116 VEHICLE DISMANTLER: 09/09/20 1210 ADM IN [place] [id number] [place] [id number]
--- NOTE | 2020-09-12 10:43 | NUR ---
DAUGHTER CALLED TO CHECK ON PT, DAUGHTER IS CONCERNED AND DOES NOT THINK PT WILL BE SAFE TO GO HOME, DAUGHTER STATES PT GOT DISCHARGED FROM [facility] 2 MONTHS AGO AND STARTED DRINKING AGAIN THE SAME DAY. PT'S BOYFRIEND IN NOV AND THEN PT'S SON JUST A FEW DAYS AGO AFTER HAVING HEART ATTACK IN MAY. DAUGHTER ALSO CONCERNED PT MAY HAVE DEMENTIA OR IF IT WAS ALCOHOL RELATED. DAUGHTER STATES PT HAS BEEN IN AND OUT OF HOSPITAL 5 TIMES SINCE APRIL. PT ALCOHOL CONSUMPTION HAS INCREASED OVER THE LAST 5 MONTHS TO A PINT OR MORE OF VODKA PER DAY. DAUGHTER ALSO STATES [facility]ULT [facility]IVE SERVICES WAS SUPPOSE TO SEE PT. DAUGHTER-LOUIE PETERS,
[2020-09-12 10:49] VITALS: BP 128/71
[2020-09-12 12:28] VITALS: BP 124/75
[2020-09-12 13:28] LABS: LYMPHOCYTES 20 % (15-50); MONOCYTES 11 % (2-11); NEUTROPHILS 66 % (40-80); PLATELET ESTIMATE NORMAL
[2020-09-12 13:43] LABS: INR 1.07 (0.85-1.17); PROTIME 12.9 SECONDS (11.6-15.0)
--- NOTE | 2020-09-12 15:06 | NUR ---
Nutrition reassessment: Pt remains confused per nursing. Diet order Consistent CHO with continued poor po intake Labs reviewed; glucose under good control due to poor po intake at this time Wt: 194# Estimated needs remains the same as initial assessment of 09/05/20 Nutrition diagnosis: Inadequate oral intake R/T confusion AEB observed poor po intake during hospital stay. Nutrition goals: - Nutrition support will begin within 24-48 hours if po intake remains poor - Stable dry wt - Meet est fluid needs Nutrition intervetnions: Will continue to provide food choices and honor food preferences. Recommend: Change diet order to regular as tolerated to encourage increased po intake RDN will order Ensure with meals Follow-up: 09/15/20
--- NOTE | 2020-09-12 15:22 | NUR ---
ALVARO ACSTLE, PT LAYING IN BED WATCHING TV, INFORMED HER WOULD CHECK BG IN ABOUT AN HOUR, PT BECAME TEARFUL AND STATED SHE JUST WANTS TO GO HOME, TOLD HER WE NEEDED TO GET HER BETTER FIRST, PT STATED "WHAT IF I DONT GET BETTER?", TOLD HER SHE MAY NOT GET 100% BUT THAT WE WERE GOING TO WORK ON IT BEST WE COULD, LET HER KNOW THAT SHE HAS BEEN THROUGH A LOT AND BEING SAD AND CRYING WAS OK, ENCOURAGED THE USE OF THE CALL LIGHT IN BETWEEN ROUNDS, PT VERBALIZES UNDERSTANDING
[2020-09-12 18:16] VITALS: BP 115/62
[2020-09-12 20:00] VITALS: BP 125/81
--- NOTE | 2020-09-12 20:00 | NUR ---
PT SITTING UP IN BED WITHOUT DISTRESS, INCONTINENT OF URINE. LINENS CHANGED. FSBS 87, PROVIDED APPLE JUICE AND PAULINA CRACKERS. PT TOOK HS MEDS WITHOUT DIFFICULTY. DENIES OTHER NEEDS AT THIS TIME. CL IN REACH
[2020-09-13] VITALS: BP 109/66
[2020-09-13 04:00] VITALS: BP 143/93
[2020-09-13 05:55] LABS: BASOPHILS 2.3 % (0-2); EOSINOPHILS 0.7 % (0-7); HEMATOCRIT 31.8 % (36.0-48.0); HEMOGLOBIN 10.4 g/dL (12-16); LYMPHOCYTES 32.8 % (15-50); MCH 32.3 pg (26.0-34.0); MCHC 32.9 g/dL (31.0-37.0); MCV 98.4 fL (80.0-100.0); MEAN PLATELET VOLUME 11.1 fL (7.4-10.4); MONOCYTES 7.7 % (2-11); NEUTROPHILS 56.5 % (40-80); PLATELET COUNT 217 10x3/uL (130-400); RBC 3.23 10x6/uL (4.00-5.40); RDW 15.6 % (11.5-14.5); WBC 6.4 10x3/uL (4.8-10.8)
[2020-09-13 06:02] LABS: INR 1.01 (0.85-1.17); PROTIME 12.3 SECONDS (11.6-15.0)
[2020-09-13 06:50] LABS: ALBUMIN 1.7 g/dL (3.4-5.0); ANION GAP 13.4 mmol/L (8-16); BILIRUBIN - TOTAL 4.7 mg/dL (0.2-1.3); CALCIUM 8.8 mg/dL (8.5-10.1); CARBON DIOXIDE 21.8 mmol/L (21.0-32.0); CREATININE - SERUM 0.9 mg/dL (0.6-1.3); POTASSIUM - SERUM 4.2 mmol/L (3.5-5.1); PROTEIN - SERUM 5.1 g/dL (6.4-8.2)
[2020-09-13 08:14] VITALS: BP 128/89
[2020-09-13 11:20] VITALS: BP 132/87
[2020-09-13 16:00] VITALS: BP 102/55
--- NOTE | 2020-09-13 17:11 | NUR ---
OT NOTE: PT RESTING BUT AROUSED TO VOICE. PT WAS ORIENTED X 4.. PT BEGAN TALKING ABOUT A FALL AND WHY SHE FELL..REMAINS CONFUSED TO SITUATION.. PRACTICED BED MOB WITH MUCH IMPROVEMENT.. ABLE TO ROLL FROM SIDE TO SIDE WITH VC AND EXT TIME BUT WITH ONLY MIN ASSIST. ABLE TO WASH FACE WITH SET UP.. PT REQUESTING THAT SOMEONE CUT HER HAIR.. MORRIS DOMINGUEZ, OTR/L [phone]
--- NOTE | 2020-09-13 17:22 | NUR ---
COREG GIVEN, FSBG 98, NO COVERAGE NEEDED
--- NOTE | 2020-09-13 17:49 | NUR ---
OT NOTE: PT COMPLETED BED MOB WITH MAX A. PT COMPLETED STANDING WITH MOD-MAX A. PT COMPLETED LB HYGIENE WITH MAX A. CL WITHIN REACH,,ALARM ON. [phone] THANK YOU,BRIA NUGENT
[2020-09-13 20:00] VITALS: BP 116/71
[2020-09-14 04:00] VITALS: BP 126/81
[2020-09-14 07:40] LABS: INR 1.13 (0.85-1.17); PROTIME 13.4 SECONDS (11.6-15.0)
[2020-09-14 07:49] LABS: ALBUMIN 1.5 g/dL (3.4-5.0); ALKALINE PHOSPHATASE 301 U/L (30-120); ALT (SGPT) 124 U/L (10-68); BILIRUBIN - TOTAL 4.29 mg/dL (0.2-1.3); CALC OSMOLALITY 275 mosm/kg (275-300); CALCIUM 8.8 mg/dL (8.5-10.1); CARBON DIOXIDE 22.7 mmol/L (21.0-32.0); CHLORIDE - SERUM 107 mmol/L (98-107); CREATININE - SERUM 0.8 mg/dL (0.6-1.3); GLUCOSE 83 mg/dL (74-106); POTASSIUM - SERUM 4.3 mmol/L (3.5-5.1); PROTEIN - SERUM 4.8 g/dL (6.4-8.2); SODIUM 139 mmol/L (136-145); UREA NITROGEN 11 mg/dL (7-18); eGFR NON AFRICAN AMERICAN 77 mL/min (90-120)
[2020-09-14 08:06] LABS: BASOPHILS 2.3 % (0-2); EOSINOPHILS 0.5 % (0-7); HEMATOCRIT 28.4 % (36.0-48.0); HEMOGLOBIN 9.6 g/dL (12-16); LYMPHOCYTES 33.5 % (15-50); MCH 32.9 pg (26.0-34.0); MCHC 33.7 g/dL (31.0-37.0); MCV 97.7 fL (80.0-100.0); MEAN PLATELET VOLUME 10.8 fL (7.4-10.4); MONOCYTES 6.8 % (2-11); NEUTROPHILS 56.9 % (40-80); PLATELET COUNT 207 10x3/uL (130-400); RDW 15.7 % (11.5-14.5)
--- NOTE | 2020-09-14 08:40 | NUR ---
PT SITTING UP IN BED AWAKE AND ALERT. NO ACUTE DISTRESS NOTED AT THIS TIME. DENIES PAIN AT THIS TIME. ASSISTED PT WITH SITTING UP BREAKFAST TRAY AT THIS TIME. PT ABLE TO FEED ONESELF. DENIES FURTHER NEEDS AT THIS TIME. CL WITHIN REACH. ENCOURAGED TO CALL WITH NEEDS. CONTINUE POC
[2020-09-14 09:26] VITALS: BP 155/93
--- NOTE | 2020-09-14 11:35 | NUR ---
REHAB PRESCREEN ORDER RECEIVED. PATIENT IS A MEDICAID PATIENT. WE DID DISCUSS THIS IN IDT. WE UNFORTUNATELY WILL HAVE TO DECLINE THIS PATIENT. THANK YOU FOR THE REFERRAL. BOB MALDONADO RN CLINICAL LIAISON, INPATIENT REHAB.
[2020-09-14 14:41] VITALS: BP 115/85
--- NOTE | 2020-09-14 15:37 | MORECARE ---
CASE MANAGEMENT DISCHARGE SUMMARY PATIENT: TASH JEONG UNIT: [id number] ADM DATE: 09/02/20 AGE: 60 : 60 SEX: F ROOM/BED: D.2227 AUTHOR: DANI,DOC PHYSICIAN: REFERRING PHYSICIAN: SAJAN WALKER MD DATE OF SERVICE: 09/14/20 Case Management Discharge Planning Summary COMMENTS ENTERED DATE: 09/14/20 15:32 CT COMMENT TYPE: Discharge Planning REVIEWER: Dede Johnson CM IS FAXING A REFERRAL TO [facility]PATIENT REHAB TO SEE IF SHE WOULD BE [facility] WAITING CALL BACK. CM TO FOLLOW AND ASSIST. DCP REVIEW SUMMARY ANTICIPATED D/C DATE: EXPECTED LOS : CASE STATUS: DCP Initiated INITIAL REVIEW: 09/02/2020 INITIAL REVIEWER: Dede Johnson FINAL DISCHARGE DISPOSITION: : FINAL REVIEWER: FINAL REVIEW DATE: DCP Focus Questions & Answers QUESTION: ANSWER : PROVIDER NETWORKING REVIEW DATE: 09/14/2020 SERVICE TYPE: Inpatient Rehab REVIEWER: Dede Johnson PROVIDER: FINAL PROVIDER? : FINAL DATE/TIME: CT PATIENT: TASH JEONG ENCOUNTER: [id number] MEDICAL RECORD#: [id number] ADMISSION DATE: 09/02/2020 DISCHARGE DATE: ATTENDING MD: SAJAN HERCULES : AGE: 60 MARITAL STATUS: D DC PLAN ID: [id number] FACILITY: [facility] PRINTED ON: 09/14/20 15:37 CT All edits/amendments must be made on the electronic document DICTATION DATE: 09/14/201536 BUSINESS DEVELOPMENT AGENT: DM 09/14/20 153 RPT#: [id number] DC DATE: STATUS: ADM IN [facility] [address] [place] [address] END OF REPORT
[2020-09-14 17:41] VITALS: BP 119/68
[2020-09-14 20:00] VITALS: BP 113/72
--- NOTE | 2020-09-14 20:00 | NUR ---
ALERT RESTING IN BED, DENIES PAIN OR NEEDS AT THIS TIME, SEE SHIFT ASSESSMENT, CALL MORE RODRIGUEZ
--- NOTE | 2020-09-14 21:51 | NUR ---
OT NOTE: UPON ENTERING, PT SUPINE IN LOWER PART OF BED. PT REQUIRED MAX A FOR SUPINE TO SIT. PT COMPLETED EOB SITTING BALANCE WITH CGA. PT COMPLETED BUE AROM ACTIVITIES TOLERATED. PT COMPLETED UB HYGIENE TASKS WITH MAX A. PT REQURIED CUES FOR INCREASED PARTICIPATION. PT REQUIRED TOTAL A FOR POSITIONING IN BED. [phone] MAX GOODRICH COTA
[2020-09-15] VITALS: BP 126/78
[2020-09-15 04:00] VITALS: BP 131/84
[2020-09-15 06:05] LABS: BASOPHILS 1.9 % (0-2); EOSINOPHILS 0.3 % (0-7); HEMATOCRIT 28.9 % (36.0-48.0); HEMOGLOBIN 9.6 g/dL (12-16); LYMPHOCYTES 31.3 % (15-50); MCH 32.5 pg (26.0-34.0); MCHC 33.3 g/dL (31.0-37.0); MCV 97.6 fL (80.0-100.0); MEAN PLATELET VOLUME 10.6 fL (7.4-10.4); MONOCYTES 9.3 % (2-11); NEUTROPHILS 57.2 % (40-80); PLATELET COUNT 208 10x3/uL (130-400); RBC 2.96 10x6/uL (4.00-5.40); RDW 15.8 % (11.5-14.5); WBC 6.2 10x3/uL (4.8-10.8)
[2020-09-15 06:28] LABS: ALBUMIN 1.6 g/dL (3.4-5.0); ANION GAP 10.4 mmol/L (8-16); BILIRUBIN - TOTAL 4.73 mg/dL (0.2-1.3); CALCIUM 8.9 mg/dL (8.5-10.1); CARBON DIOXIDE 25.7 mmol/L (21.0-32.0); CREATININE - SERUM 0.9 mg/dL (0.6-1.3); POTASSIUM - SERUM 4.1 mmol/L (3.5-5.1)
[2020-09-15 06:41] LABS: INR 1.05 (0.85-1.17); PROTIME 12.7 SECONDS (11.6-15.0)
[2020-09-15 07:50] VITALS: BP 148/93
--- NOTE | 2020-09-15 08:49 | MORECARE ---
CASE MANAGEMENT DISCHARGE SUMMARY PATIENT: TASH JEONG UNIT: [id number] ADM DATE: 09/02/20 AGE: 60 : 60 SEX: F ROOM/BED: D.2227 AUTHOR: DANI,DOC PHYSICIAN: REFERRING PHYSICIAN: SAJAN WALKER MD DATE OF SERVICE: 09/15/20 Case Management Discharge Planning Summary COMMENTS ENTERED DATE: 09/14/20 15:32 CT COMMENT TYPE: Discharge Planning REVIEWER: Dede Johnson CM IS FAXING A REFERRAL TO [facility] INPATIENT REHAB TO SEE IF SHE WOULD BE A [facility]ID[facility]. WAITING CALL BACK. CM TO FOLLOW AND ASSIST. DCP REVIEW SUMMARY ANTICIPATED D/C DATE: EXPECTED LOS : CASE STATUS: DCP Initiated INITIAL REVIEW: 09/02/2020 INITIAL REVIEWER: Dede Johnson FINAL DISCHARGE DISPOSITION: : FINAL REVIEWER: FINAL REVIEW DATE: DCP Focus Questions & Answers QUESTION: ANSWER : PROVIDER NETWORKING REVIEW DATE: 09/14/2020 SERVICE TYPE: Inpatient Rehab REVIEWER: Dede Johnson PATIENT: TASH JEONG ENCOUNTER: [id number] MEDICAL RECORD#: [id number] ADMISSION DATE: 09/02/2020 DISCHARGE DATE: ATTENDING MD: SAJAN HERCULES : AGE: 60 MARITAL STATUS: D DC PLAN ID: [id number] FACILITY: [facility] PRINTED ON: 09/15/20 8:49 CT All edits/amendments must be made on the electronic document DICTATION DATE: 09/15/20848 SALES REPRESENTATIVE UNIFORMS: SONAL 09/15/2049 RPT#: [id number] DC DATE: STATUS: ADM IN [facility] [address] [place] [address] END OF REPORT
[2020-09-15 12:17] VITALS: BP 128/86
--- NOTE | 2020-09-15 13:30 | NUR ---
PT ASSISTED FROM BED TO BATHROOM X 2 PEOPLE, REQUIRING INTENSE ASSISTANCE WITH AMBULATING AND REMAINING BALANCED. PT DID HAVE LARGE BM AT THIS TIME. ASSSITED BACK TO BED. CL WITHIN REACH. ENCOURAGED TO CALL WITH NEEDS. CONTING POC
--- NOTE | 2020-09-15 14:17 | NUR ---
Nutrition follow-up: Diet order: Consistent CHO PO intake 50% of some meals Labs reviewed Wt: 194# +BM REcommendations: Due to pt with A1c of 4.6%, RD changing diet order to regular to encourage increased po intake Also, pt may benefit from an appetite stimulant RDN follow-up: 09/21/20
--- NOTE | 2020-09-15 15:20 | NUR ---
OT NOTE: PT DOING BETTER TODAY. CONT TO REQUIRE MODERATE ENCOURAGEMENT TO GET UP OUT OF BED.. PT ALSO VERY FEARFUL OF FALLING. PT ABLE TO PERFORM SUPINE TO SIT WITH MIN/MOD ASSIST; EOB SITTING BALANCE IS GOOD; ABLE TO PERFORM SIMPLE GROOMING TASKS INCLUDING WASHING FACE AND HANDS WHILE ON EOB. PT WANTING TO GO TO BATHROOM..OT ASKED FOR ASSISTANCE WIHT AMBULATION FOR SAFETY. PT ABLE TO AMB WITH WALKER AND MIN ASSIST X 2, APPROX 5 FT TO THE TOILET; TRANSFER TO TOILET WITH MOD ASSIST; TOILET HYGIENE WITH MAX ASSIST; SIT TO STAND WITH WALKER AND MOD ASSIST; AMB BACK TO BED AND TRANSFERRED INTO BED WITH EXT TIME AND ENCOURAGEMENT BUT NO ASSIST TO GET LES BACK INTO BED. MORRIS DOMINGUEZ, OTR/L [phone]
[2020-09-15 17:07] VITALS: BP 108/70
[2020-09-15 20:00] VITALS: BP 107/72
[2020-09-16] VITALS: BP 120/79
[2020-09-16 04:00] VITALS: BP 143/90
[2020-09-16 06:28] LABS: HEMOGLOBIN 9.9 g/dL (12-16)
[2020-09-16 06:30] LABS: HEMATOCRIT 30.3 % (36.0-48.0); MCH 32.2 pg (26.0-34.0); MCHC 32.7 g/dL (31.0-37.0); MCV 98.5 fL (80.0-100.0); PLATELET COUNT 204 10x3/uL (130-400); RBC 3.07 10x6/uL (4.00-5.40); RDW 16.4 % (11.5-14.5)
[2020-09-16 06:43] LABS: WBC 8.5 10x3/uL (4.8-10.8)
[2020-09-16 06:53] LABS: ALBUMIN 1.7 g/dL (3.4-5.0); ANION GAP 11.8 mmol/L (8-16); BILIRUBIN - TOTAL 4.64 mg/dL (0.2-1.3); CALCIUM 9.1 mg/dL (8.5-10.1); CARBON DIOXIDE 23.9 mmol/L (21.0-32.0); POTASSIUM - SERUM 4.7 mmol/L (3.5-5.1); PROTEIN - SERUM 5.7 g/dL (6.4-8.2)
--- NOTE | 2020-09-16 07:40 | NUR ---
ALERT AND ORIENTED TO SELF AND PLACE. ASSESSMENT COMPLETE. DENIES NEEDS. BED LOW. CALL ORDONEZ AND PERSONAL ITEMS IN REACH. WILL CONTINUE TO MONITOR.
[2020-09-16 07:59] LABS: INR 1.12 (0.85-1.17); PROTIME 13.4 SECONDS (11.6-15.0)
[2020-09-16 10:41] LABS: BASOPHILS 1 % (0-2); LYMPHOCYTES 39 % (15-50); MONOCYTES 1 % (2-11); NEUTROPHILS 59 % (40-80); PLATELET ESTIMATE NORMAL; PLATELET MORPHOLOGY PLT CLUMPS PRESENT
[2020-09-16 10:42] LABS: ANISOCYTOSIS 1+; MICROCYTOSIS OCC
[2020-09-16 11:37] VITALS: BP 119/79
[2020-09-16 14:40] VITALS: BP 138/90
--- NOTE | 2020-09-16 16:34 | NUR ---
OT NOTE: PT DID WELL TODAY WITH CUES FOR INCREASED PARTICIPATION. PT REQUIRED MIN A FOR SUPINE TO SIT. PT COMPLETED SIT TO STAND WITH MIN A. PT COMPLETED EOB SITTING BALANCE WITH SBA. PT FACE HYGIENE WITH SETUP. PT IS EASILY FATIGUED. [phone] MAX GOODRICH COTA
[2020-09-16 21:43] VITALS: BP 156/90
--- NOTE | 2020-09-17 03:15 | NUR ---
I have reviewed this patient and I concur with the Shift Assessment completed by the Licensed Practical Nurse today this shift.
[2020-09-17 05:38] VITALS: BP 155/90
[2020-09-17 08:47] LABS: BASOPHILS 2.1 % (0-2); EOSINOPHILS 0.4 % (0-7); HEMATOCRIT 27.7 % (36.0-48.0); HEMOGLOBIN 9.2 g/dL (12-16); LYMPHOCYTES 67.7 % (15-50); MCH 32.4 pg (26.0-34.0); MCHC 33.4 g/dL (31.0-37.0); MEAN PLATELET VOLUME 9.9 fL (7.4-10.4); MONOCYTES 2.6 % (2-11); NEUTROPHILS 27.2 % (40-80); PLATELET COUNT 194 10x3/uL (130-400); RBC 2.85 10x6/uL (4.00-5.40); RDW 16.2 % (11.5-14.5)
[2020-09-17 08:55] LABS: WBC 4.5 10x3/uL (4.8-10.8)
[2020-09-17 08:58] LABS: INR 1.05 (0.85-1.17); PROTIME 12.7 SECONDS (11.6-15.0)
[2020-09-17 09:04] LABS: ALBUMIN 1.6 g/dL (3.4-5.0); ALKALINE PHOSPHATASE 309 U/L (30-120); ALT (SGPT) 115 U/L (10-68); BILIRUBIN - TOTAL 4.06 mg/dL (0.2-1.3); CALC OSMOLALITY 268 mosm/kg (275-300); CALCIUM 8.7 mg/dL (8.5-10.1); CARBON DIOXIDE 26.5 mmol/L (21.0-32.0); CHLORIDE - SERUM 104 mmol/L (98-107); CREATININE - SERUM 0.8 mg/dL (0.6-1.3); GLUCOSE 89 mg/dL (74-106); POTASSIUM - SERUM 4.5 mmol/L (3.5-5.1); PROTEIN - SERUM 5.2 g/dL (6.4-8.2); SODIUM 135 mmol/L (136-145); UREA NITROGEN 12 mg/dL (7-18); eGFR NON AFRICAN AMERICAN 77 mL/min (90-120)
[2020-09-17 10:28] VITALS: BP 155/95
[2020-09-17 14:19] VITALS: BP 139/74
[2020-09-17 18:36] VITALS: BP 143/88
[2020-09-17 21:03] VITALS: BP 141/91
--- NOTE | 2020-09-18 02:58 | NUR ---
I have reviewed this patient and I concur with the Shift Assessment completed by the Licensed Practical Nurse today this shift.
[2020-09-18 05:13] VITALS: BP 163/99
[2020-09-18 07:39] LABS: HEMATOCRIT 29.5 % (36.0-48.0); HEMOGLOBIN 9.6 g/dL (12-16); MCHC 32.7 g/dL (31.0-37.0); MCV 97.8 fL (80.0-100.0); MEAN PLATELET VOLUME 9.8 fL (7.4-10.4); PLATELET COUNT 203 10x3/uL (130-400); RBC 3.01 10x6/uL (4.00-5.40); RDW 15.9 % (11.5-14.5); WBC 4.7 10x3/uL (4.8-10.8)
[2020-09-18 07:52] LABS: ALBUMIN 1.8 g/dL (3.4-5.0); ALKALINE PHOSPHATASE 357 U/L (30-120); ALT (SGPT) 132 U/L (10-68); BILIRUBIN - TOTAL 4.24 mg/dL (0.2-1.3); CALC OSMOLALITY 264 mosm/kg (275-300); CALCIUM 9.1 mg/dL (8.5-10.1); CARBON DIOXIDE 26.6 mmol/L (21.0-32.0); CHLORIDE - SERUM 102 mmol/L (98-107); CREATININE - SERUM 0.8 mg/dL (0.6-1.3); GLUCOSE 96 mg/dL (74-106); POTASSIUM - SERUM 4.4 mmol/L (3.5-5.1); PROTEIN - SERUM 5.8 g/dL (6.4-8.2); SODIUM 133 mmol/L (136-145); UREA NITROGEN 11 mg/dL (7-18); eGFR NON AFRICAN AMERICAN 77 mL/min (90-120)
[2020-09-18 09:24] LABS: LYMPHOCYTES 30 % (15-50); NEUTROPHILS 64 % (40-80)
[2020-09-18 09:25] LABS: ANISOCYTOSIS OCC; PLATELET ESTIMATE NORMAL
[2020-09-18 09:56] VITALS: BP 133/87
--- NOTE | 2020-09-18 10:33 | NUR ---
PATIENT UP TO BEDSIDE COMODE, ENCOURAGED TO USE CL TO ASK FOR ASSISTANCE, NO NEEDS VOICED AT THIS TIME. CONTINUE WITH PLAN OF CARE
[2020-09-18 14:06] VITALS: BP 131/80
--- NOTE | 2020-09-18 18:00 | NUR ---
I have reviewed this patient and I concur with the Shift Assessment completed by the Licensed Practical Nurse today this shift.
[2020-09-18 18:38] VITALS: BP 137/87
[2020-09-18 20:00] VITALS: BP 133/91
[2020-09-19] VITALS: BP 95/51
--- NOTE | 2020-09-19 02:50 | NUR ---
I have reviewed this patient and I concur with the Shift Assessment completed by the Licensed Practical Nurse today this shift.
[2020-09-19 04:00] VITALS: BP 135/91
[2020-09-19 06:37] LABS: BASOPHILS 2.7 % (0-2); EOSINOPHILS 0.6 % (0-7); HEMATOCRIT 25.4 % (36.0-48.0); HEMOGLOBIN 8.6 g/dL (12-16); LYMPHOCYTES 62.5 % (15-50); MCH 32.4 pg (26.0-34.0); MCHC 33.7 g/dL (31.0-37.0); MEAN PLATELET VOLUME 10.1 fL (7.4-10.4); MONOCYTES 5.1 % (2-11); NEUTROPHILS 29.1 % (40-80); PLATELET COUNT 168 10x3/uL (130-400); RBC 2.64 10x6/uL (4.00-5.40); RDW 15.8 % (11.5-14.5); WBC 5.3 10x3/uL (4.8-10.8)
[2020-09-19 07:26] LABS: ALBUMIN 1.7 g/dL (3.4-5.0); ALKALINE PHOSPHATASE 323 U/L (30-120); ALT (SGPT) 128 U/L (10-68); BILIRUBIN - TOTAL 3.27 mg/dL (0.2-1.3); CALC OSMOLALITY 268 mosm/kg (275-300); CALCIUM 8.8 mg/dL (8.5-10.1); CARBON DIOXIDE 23.5 mmol/L (21.0-32.0); CHLORIDE - SERUM 104 mmol/L (98-107); CREATININE - SERUM 0.8 mg/dL (0.6-1.3); GLUCOSE 98 mg/dL (74-106); POTASSIUM - SERUM 4.3 mmol/L (3.5-5.1); PROTEIN - SERUM 5.4 g/dL (6.4-8.2); SODIUM 135 mmol/L (136-145); UREA NITROGEN 10 mg/dL (7-18); eGFR NON AFRICAN AMERICAN 77 mL/min (90-120)
[2020-09-19 10:02] VITALS: BP 159/109
[2020-09-19 13:32] VITALS: BP 156/87
--- NOTE | 2020-09-19 14:25 | NUR ---
OT NOTE: PT DID VERY WELL. PT COMPLETED SUPINE TO SIT WITH SBA. PT COMPLETED EOB SITTING WITH SPV. PT COMPLETED SIT TO STAND WITH SBA. PT REQUIRED MAX A FOR MARINE SOCKS. PT COMPLETED FACE AND HAND HYGIENE WITH SETUP. PT REQUIRED CUES FOR INCREASED TASK COMPLETION. CL IN REACH. [phone] THANK YOU,BRIA NUGENT
--- NOTE | 2020-09-19 15:53 | NUR ---
I have reviewed this patient and I concur with the Shift Assessment completed by the Licensed Practical Nurse today this shift.
[2020-09-19 16:52] VITALS: BP 161/100
[2020-09-19 20:00] VITALS: BP 153/96
--- NOTE | 2020-09-20 02:23 | NUR ---
PATIENT WAS SUPPOSED TO DISCHARGE HOME, COULD NOT GET HER RIDE TO ANSWER THE PHONE. PATIENT HAS BEEN RESTING WELL. SHE DID HAVE LOW BLOOOD PRESSURE AGAIN TONIGHT IT WAS 90/52, NOTIFIED [facility]Z AND HELD AMLODIPINE, MIDNIGHT VITAL BP 101/56. SHE IS CURRENTLY RESTING IN BED WITH HER EYES CLOSED.
--- NOTE | 2020-09-20 02:43 | NUR ---
PATIENT DENIES PAIN, SHE HAS CALL LIGHT WITHIN REACH, SHE IS CURRENTLY RESTING IN BED WITH HER EYES CLOSED.
[2020-09-20 04:00] VITALS: BP 124/79
[2020-09-20 06:34] LABS: EOSINOPHILS 0.9 % (0-7); HEMATOCRIT 24.2 % (36.0-48.0); HEMOGLOBIN 8.2 g/dL (12-16); MEAN PLATELET VOLUME 9.9 fL (7.4-10.4); MONOCYTES 10.2 % (2-11); NEUTROPHILS 24.9 % (40-80); WBC 5.9 10x3/uL (4.8-10.8)
[2020-09-20 06:35] LABS: PLATELET COUNT 202 10x3/uL (130-400)
[2020-09-20 06:54] LABS: ALBUMIN 1.7 g/dL (3.4-5.0); ANION GAP 12.4 mmol/L (8-16); BILIRUBIN - TOTAL 2.92 mg/dL (0.2-1.3); CALCIUM 8.6 mg/dL (8.5-10.1); CARBON DIOXIDE 23.7 mmol/L (21.0-32.0); CREATININE - SERUM 0.9 mg/dL (0.6-1.3); POTASSIUM - SERUM 4.1 mmol/L (3.5-5.1); PROTEIN - SERUM 5.4 g/dL (6.4-8.2)
[2020-09-20 08:49] VITALS: BP 158/96
[2020-09-20 11:56] VITALS: BP 167/71
[2020-09-20 16:31] VITALS: BP 151/103
--- NOTE | 2020-09-20 18:00 | NUR ---
OT NOTE: PT DOING SO MUCH BETTER THAN LAST WK. PT WANTING TO GO HOME, AND EVEN ASKED ABOUT "COUNSELING" UPON DC.. PT DOING MUCH BETTER.. HER BALANCE HAS IMPROVED AND SHE IS ABLE TO AMB AROUND ROOM WITHOUT AD; SHE IS ABLE TO PERFORM TOILET TRANSFERS AND HYGIENE WITH SBA; ABLE TO AMB TO SINK AND PERFORM GROOMING TASKS WITH SBA. SHE REPORTS THAT SHE TOOK A SHOWER THIS AM.. SHE IS DEFINITELY DOING BETTER FUNCTIONALLY, HOWEVER, UNSURE IF SHE WILL BE SAFE AT HOME.. SHE WILL BE RETURNING HOME ALONE.. MORRIS DOMINGUEZ, OTR/L [phone]
[2020-09-20 20:00] VITALS: BP 142/86
[2020-09-21] VITALS: BP 134/86
[2020-09-21 04:00] VITALS: BP 144/91
--- NOTE | 2020-09-21 04:54 | NUR ---
PATIENT DENIES PAIN SHE IS CURRENTLY RESTING IN BED WITH HER EYES CLOSED.
[2020-09-21 08:10] VITALS: BP 157/90
--- NOTE | 2020-09-21 08:11 | NUR ---
AAO UPON ENTERING. ADMINISTERED MORNING MEDICATION, NO DIFFICULTIES. RESTING COMFORTABLY IN BED. ASSISTED PT TO BATHROOM AND BACK TO BED, MINIMAL ASSISTANCE NEEDED. DENIES ANY NEEDS AT THIS TIME. BED IN LOWEST POSITION, BED RAILS X2, CALL LIGHT WITHIN REACH. WILL CONTINUE POC. ASSESSMENT PERFORMED AT THIS TIME.
[2020-09-21 08:27] LABS: HEMATOCRIT 26.2 % (36.0-48.0); HEMOGLOBIN 8.8 g/dL (12-16); MCH 32.7 pg (26.0-34.0); MCHC 33.5 g/dL (31.0-37.0); MCV 97.8 fL (80.0-100.0); MEAN PLATELET VOLUME 9.8 fL (7.4-10.4); RBC 2.68 10x6/uL (4.00-5.40); RDW 15.8 % (11.5-14.5)
[2020-09-21 08:31] LABS: PLATELET COUNT 316 10x3/uL (130-400)
[2020-09-21 08:42] LABS: ALKALINE PHOSPHATASE 331 U/L (30-120); ALT (SGPT) 162 U/L (10-68); BILIRUBIN - TOTAL 2.98 mg/dL (0.2-1.3); CALC OSMOLALITY 272 mosm/kg (275-300); CARBON DIOXIDE 22.6 mmol/L (21.0-32.0); CHLORIDE - SERUM 107 mmol/L (98-107); CREATININE - SERUM 0.7 mg/dL (0.6-1.3); GLUCOSE 80 mg/dL (74-106); POTASSIUM - SERUM 3.8 mmol/L (3.5-5.1); PROTEIN - SERUM 6.1 g/dL (6.4-8.2); SODIUM 138 mmol/L (136-145); eGFR NON AFRICAN AMERICAN 90 mL/min (90-120)
[2020-09-21 08:44] LABS: UREA NITROGEN 8 mg/dL (7-18)
[2020-09-21 09:08] LABS: EOSINOPHILS 3 % (0-7); LYMPHOCYTES 41 % (15-50); MONOCYTES 10 % (2-11); NEUTROPHILS 45 % (40-80); PLATELET ESTIMATE NORMAL
--- NOTE | 2020-09-21 10:50 | MORECARE ---
CASE MANAGEMENT DISCHARGE SUMMARY PATIENT: TASH JEONG UNIT: [id number] ADM DATE: 09/02/20 AGE: 60 : 60 SEX: F ROOM/BED: D.2227 AUTHOR: DANI,DOC PHYSICIAN: REFERRING PHYSICIAN: SAJAN WALKER MD DATE OF SERVICE: 09/21/20 Case Management Discharge Planning Summary COMMENTS ENTERED DATE: 09/21/20 10:42 CT COMMENT TYPE: Discharge Planning REVIEWER: Dede Johnson PATIENT IS OUT OF DAYS FOR INPATIENT REHAB. I SPOKE WITH HER TODAY ABOUT DC PLANNING NEEDS. SHE STATES SHE HAS A WALKER AT HOME, SHE LIVES ALONE BUT HER DAUGHTER IS GOING TO BE HELPING HER AND SHE HAS A FRIEND THAT IS GOING TO STAY WITH HER AND HELP HER FOR A WHILE. ALSO STATES FRIEND HAS WHEEL CHAIR IF NEEDED. [facility] IS HER PCP AND [facility] IS PHARMACY. PATIENT HOPES TO DC TO HOME TODAY AND I WILL SET HER UP WITH [address] AND HER DAUGHTER WILL PICK HER UP. CM TO FOLLOW AND ASSIST NEEDED. ENTERED DATE: 09/14/20 15:32 CT COMMENT TYPE: Discharge Planning REVIEWER: Dede Johnson CM IS FAXING A REFERRAL TO [facility] INPATIENT REHAB TO SEE IF SHE WOULD BE A [facility] WAITING CALL BACK. CM TO FOLLOW AND ASSIST. DCP REVIEW SUMMARY ANTICIPATED D/C DATE: EXPECTED LOS : CASE STATUS: DCP Initiated INITIAL REVIEW: 09/02/2020 INITIAL REVIEWER: Dede Johnson FINAL DISCHARGE DISPOSITION: : FINAL REVIEWER: FINAL REVIEW DATE: DCP Focus Questions & Answers QUESTION: ANSWER : PROVIDER NETWORKING REVIEW DATE: 09/14/2020 SERVICE TYPE: Inpatient Rehab REVIEWER: Dede Johnson PATIENT: TASH JEONG ENCOUNTER: [id number] MEDICAL RECORD#: [id number] ADMISSION DATE: 09/02/2020 DISCHARGE DATE: ATTENDING MD: SAJAN HERCULES : AGE: 60 MARITAL STATUS: D DC PLAN ID: [id number] FACILITY: [facility] PRINTED ON: 09/21/20 10:50 CT All edits/amendments must be made on the electronic document DICTATION DATE: 09/21/20 105 MANAGER BUDGET: SONAL 09/21/20 105 RPT#: [id number] DC DATE: STATUS: ADM IN [facility] [address] [place] [address] END OF REPORT
--- NOTE | 2020-09-21 12:48 | NUR ---
I have reviewed this patient and I concur with the Shift Assessment completed by the Licensed Practical Nurse today this shift.
--- NOTE | 2020-09-21 13:06 | NUR ---
SIGNED ALL NECESSARY DISCHARGE PAPERWORK. WILL CONTACT DAUGHTER FOR RIDE. DENIES FURTHER NEEDS FROM THE HOSPITAL AT THIS TIME.
--- NOTE | 2020-09-21 13:19 | MORECARE ---
CASE MANAGEMENT DISCHARGE SUMMARY PATIENT: TASH JEONG UNIT: [id number] ADM DATE: 09/02/20 AGE: 60 : 60 SEX: F ROOM/BED: D.2227 AUTHOR: DANI,DOC PHYSICIAN: REFERRING PHYSICIAN: SAJAN WALKER MD DATE OF SERVICE: 09/21/20 Case Management Discharge Planning Summary COMMENTS ENTERED DATE: 09/21/20 10:42 CT COMMENT TYPE: Discharge Planning REVIEWER: Dede Johnson PATIENT IS OUT OF DAYS FOR INPATIENT REHAB. I SPOKE WITH HER TODAY ABOUT DC PLANNING NEEDS. SHE STATES SHE HAS A WALKER AT HOME, SHE LIVES ALONE BUT HER DAUGHTER IS GOING TO BE HELPING HER AND SHE HAS A FRIEND THAT IS GOING TO STAY WITH HER AND HELP HER FOR A WHILE. ALSO STATES FRIEND HAS WHEEL CHAIR IF NEEDED. [facility] IS HER PCP AND [facility] IS PHARMACY. PATIENT HOPES TO DC TO HOME TODAY AND I WILL SET HER UP WITH [address] AND HER DAUGHTER WILL PICK HER UP. CM TO FOLLOW AND ASSIST NEEDED. ENTERED DATE: 09/14/20 15:32 CT COMMENT TYPE: Discharge Planning REVIEWER: Dede Johnson CM IS FAXING A REFERRAL TO [facility] INPATIENT REHAB TO SEE IF SHE WOULD BE A [facility] WAITING CALL BACK. CM TO FOLLOW AND ASSIST. DCP REVIEW SUMMARY ANTICIPATED D/C DATE: EXPECTED LOS : CASE STATUS: DCP Initiated INITIAL REVIEW: 09/02/2020 INITIAL REVIEWER: Dede Johnson FINAL DISCHARGE DISPOSITION: : FINAL REVIEWER: FINAL REVIEW DATE: DCP Focus Questions & Answers QUESTION: ANSWER : PROVIDER NETWORKING REVIEW DATE: 09/14/2020 SERVICE TYPE: Inpatient Rehab REVIEWER: Dede Johnson PATIENT: TASH JEONG ENCOUNTER: [id number] MEDICAL RECORD#: [id number] ADMISSION DATE: 09/02/2020 DISCHARGE DATE: ATTENDING MD: SAJAN HERCULES : AGE: 60 MARITAL STATUS: D DC PLAN ID: [id number] FACILITY: [facility] PRINTED ON: 09/21/20 13:19 CT All edits/amendments must be made on the electronic document DICTATION DATE: 09/21/201318 MARKER DELIVERY: SONAL 09/21/201318 RPT#: [id number] DC DATE: STATUS: ADM IN [facility] [address] [place] [address] END OF REPORT
--- NOTE | 2020-09-21 13:32 | MORECARE ---
CASE MANAGEMENT DISCHARGE SUMMARY PATIENT: TASH JEONG UNIT: [id number] ADM DATE: 09/02/20 AGE: 60 : 60 SEX: F ROOM/BED: D.2227 AUTHOR: DANI,DOC PHYSICIAN: REFERRING PHYSICIAN: SAJAN WALKER MD DATE OF SERVICE: 09/21/20 Case Management Discharge Planning Summary COMMENTS ENTERED DATE: 09/21/20 13:25 CT COMMENT TYPE: Discharge Planning REVIEWER: Dede Johnson RECEIVED CALL FROM [facility] AND THEY DECLINE TO TAKE PATIENT. I HAVE FAXED REFERRAL TO [facility]. ENTERED DATE: 09/21/20 10:42 CT COMMENT TYPE: Discharge Planning REVIEWER: Dede Johnson PATIENT IS OUT OF DAYS FOR INPATIENT REHAB. I SPOKE WITH HER TODAY ABOUT DC PLANNING NEEDS. SHE STATES SHE HAS A WALKER AT HOME, SHE LIVES ALONE BUT HER DAUGHTER IS GOING TO BE HELPING HER AND SHE HAS A FRIEND THAT IS GOING TO STAY WITH HER AND HELP HER FOR A WHILE. ALSO STATES FRIEND HAS WHEEL CHAIR IF NEEDED. [facility] IS HER PCP AND [facility] IS PHARMACY. PATIENT HOPES TO DC TO HOME TODAY AND I WILL SET HER UP WITH [address] AND HER DAUGHTER WILL PICK HER UP. CM TO FOLLOW AND ASSIST NEEDED. ENTERED DATE: 09/14/20 15:32 CT COMMENT TYPE: Discharge Planning REVIEWER: Dede Johnson CM IS FAXING A REFERRAL TO [facility] INPATIENT REHAB TO SEE IF SHE WOULD BE [facility] WAITING CALL BACK. CM TO FOLLOW AND ASSIST. DCP REVIEW SUMMARY ANTICIPATED D/C DATE: EXPECTED LOS : CASE STATUS: DCP Initiated INITIAL REVIEW: 09/02/2020 INITIAL REVIEWER: Dede Johnson FINAL DISCHARGE DISPOSITION: : FINAL REVIEWER: FINAL REVIEW DATE: DCP Focus Questions & Answers QUESTION: ANSWER : PROVIDER NETWORKING REVIEW DATE: 09/14/2020 SERVICE TYPE: Inpatient Rehab REVIEWER: Dede Johnson PATIENT: TASH JEONG ENCOUNTER: [id number] MEDICAL RECORD#: [id number] ADMISSION DATE: 09/02/2020 DISCHARGE DATE: ATTENDING MD: SAJAN HERCULES : AGE: 60 MARITAL STATUS: D DC PLAN ID: [id number] FACILITY: [facility] PRINTED ON: 09/21/20 13:31 CT All edits/amendments must be made on the electronic document DICTATION DATE: 09/21/201330 METAL STAMPER: SONAL 09/21/20 133 RPT#: [id number] DC DATE: STATUS: ADM IN [facility] [address] [place] [address] END OF REPORT
--- NOTE | 2020-09-21 16:17 | NUR ---
TRANSPORT CONTACTED, WILL LEAVE VIA WHEELCHAIR WITH DAUGHTER TO DAUGHTERS HOUSE. HAS ALL PERSONAL BELONGINGS. DENIES FURTHER NEEDS FROM HOSPITAL/STAFF AT THIS TIME.
--- NOTE | 2020-09-22 08:35 | MORECARE ---
CASE MANAGEMENT DISCHARGE SUMMARY PATIENT: TASH JEONG UNIT: [id number] ADM DATE: 09/02/20 AGE: 60 : 60 SEX: F ROOM/BED: D.2227 AUTHOR: DANI,DOC PHYSICIAN: REFERRING PHYSICIAN: SAJAN WALKER MD DATE OF SERVICE: 09/22/20 Case Management Discharge Planning Summary COMMENTS ENTERED DATE: 09/21/20 13:25 CT COMMENT TYPE: Discharge Planning REVIEWER: Dede Johnson RECEIVED CALL FROM [facility] AND THEY DECLINE TO TAKE PATIENT. I HAVE FAXED REFERRAL TO [facility]. ENTERED DATE: 09/21/20 10:42 CT COMMENT TYPE: Discharge Planning REVIEWER: Dede Johnson PATIENT IS OUT OF DAYS FOR INPATIENT REHAB. I SPOKE WITH HER TODAY ABOUT DC PLANNING NEEDS. SHE STATES SHE HAS A WALKER AT HOME, SHE LIVES ALONE BUT HER DAUGHTER IS GOING TO BE HELPING HER AND SHE HAS A FRIEND THAT IS GOING TO STAY WITH HER AND HELP HER FOR A WHILE. ALSO STATES FRIEND HAS WHEEL CHAIR IF NEEDED. [facility] IS HER PCP AND [facility] IS PHARMACY. PATIENT HOPES TO DC TO HOME TODAY AND I WILL SET HER UP WITH [address] AND HER DAUGHTER WILL PICK HER UP. CM TO FOLLOW AND ASSIST NEEDED. ENTERED DATE: 09/14/20 15:32 CT COMMENT TYPE: Discharge Planning REVIEWER: Dede Johnson CM IS FAXING A REFERRAL TO [facility] INPATIENT REHAB TO SEE IF SHE WOULD BE A [facility]ANDIDATE [facility]. WAITING CALL BACK. CM TO FOLLOW AND ASSIST. DCP REVIEW SUMMARY ANTICIPATED D/C DATE: EXPECTED LOS : CASE STATUS: DCP Initiated INITIAL REVIEW: 09/02/2020 INITIAL REVIEWER: Dede Johnson FINAL DISCHARGE DISPOSITION: : FINAL REVIEWER: FINAL REVIEW DATE: DCP Focus Questions & Answers QUESTION: ANSWER : PROVIDER NETWORKING REVIEW DATE: 09/14/2020 SERVICE TYPE: Inpatient Rehab REVIEWER: Dede Johnson PATIENT: TASH JEONG ENCOUNTER: [id number] MEDICAL RECORD#: [id number] ADMISSION DATE: 09/02/2020 DISCHARGE DATE: 09/21/2020 ATTENDING MD: SAJAN HERCULES : AGE: 60 MARITAL STATUS: D DC PLAN ID: [id number] FACILITY: [facility] PRINTED ON: 09/22/20 8:35 CT All edits/amendments must be made on the electronic document DICTATION DATE: 09/22/20834 YIELD ENGINEER: DM 09/22/2035 RPT#: [id number] DC DATE:09/21/20 STATUS: DIS IN [facility] [address] [place] [address] END OF REPORT
== END 2020-09-21 16:18 | disposition home health service (06) | DRG 682 ==
LOC: D.ER 15:43 → D.CVICU 17:36 → D.MS 17:36 → D.CVICU 21:54 → D.MS 09-07 11:35
PROVIDERS: Family Medicine; Family Medicine Adult Medicine; ADMIT Emergency Medicine; ATTEND Emergency Medicine
DX: N17.9 Acute kidney failure, unspecified (principal); G93.41 Metabolic encephalopathy; K72.00 Acute and subacute hepatic failure without coma; E87.1 Hypo-osmolality and hyponatremia; N39.0 Urinary tract infection, site not specified; M62.82 Rhabdomyolysis; E72.20 Disorder of urea cycle metabolism, unspecified; F10.229 Alcohol dependence with intoxication, unspecified; G31.2 Degeneration of nervous system due to alcohol; G62.9 Polyneuropathy, unspecified; I10 Essential (primary) hypertension; E78.5 Hyperlipidemia, unspecified; M19.90 Unspecified osteoarthritis, unspecified site; Y90.6 Blood alcohol level of 120-199 mg/100 ml; K21.9 Gastro-esophageal reflux disease without esophagitis; E87.6 Hypokalemia; F31.9 Bipolar disorder, unspecified; F43.20 Adjustment disorder, unspecified; E88.09 Other disorders of plasma-protein metabolism, not elsewhere classified; I95.9 Hypotension, unspecified; E03.9 Hypothyroidism, unspecified; E66.9 Obesity, unspecified; E83.42 Hypomagnesemia; E83.39 Other disorders of phosphorus metabolism